=== PATIENT | female | born 1930 | race Caucasian/White ===

== ENCOUNTER 2016-10-07 12:04 | Inpatient (IN) | payer MEDICARE, OTHER ==
[~2016-10-07] VITALS: Ht 157.5 cm; Wt 55.8 kg
[~2016-10-07 12:04] MED LIST: ALEN70TA47 PO; AMLO5TAB2 PO; ATEN-155; ATEN100T88 PO; C250T PO; CALC-80 PO; CEFZIL PO; CHOL2000 PO; CYCL5TAB PO; FOLI1TAB24 PO; FOLIC ACID PO; FURO20TA4 PO; GABA-488 PO; GLUC-99 PO; HCT25T; HYDR-3816 PO; HYDR1TAB71 PO; MAGN400T39 PO; MAGNESIUM PO; METO50TA7; NABU750T PO; NAPR-243 PO; OXYC-12 PO; POTA99TA7 PO; PROP1TAB77 PO; ROPI1TAB2 PO; VICODIN 10/325 PO; VITAMIN C PO
--- OUTSIDE RECORDS SUMMARY | 2016-10-07 12:09 | XMS REPORT | Continuity of Care Document ---
Author Author [facility] Organization [facility] Address Unknown Phone Unavailable Care Team Providers Care Professional Development Manager Name Role Phone MEENU LATIF DO PCP Insurance Providers Payer Name Policy Number Subscriber Name Relationship [employer] [id number] Anibal Russo 18 Self / Same As Patient Enter Insurance Name [id number] Anibal Russo 18 Self / Same As Patient Advance Directives Directive Response Recorded Date/Time Advance Directives Yes 04/11/16 9:03am Health Care Power of [employer] No 04/11/16 9:03am Organ Donor Yes 04/11/16 9:03am Resuscitation Status Full Code 04/11/16 9:03am Problems Active Problems Medical Problem Onset Date Status Neck pain Unknown Acute Neck sprain Unknown Acute Medications Current Home Medications Medication Dose Units Route Directions Days/Qty Instructions Start Date Alendronate Sodium 70 Mg 70 Mg Oral Saturday04/20/10 Amlodipine Besylate (Norvasc 5 Mg) 5 Mg 5 Mg Oral Daily 04/20/10 Atenolol 100 Mg 0.5 Each Oral Daily 04/20/10 Nabumetone 750 Mg 500 Mg Oral Daily 04/20/10 Ropinirole Hcl 1 Mg 1 Mg Oral Daily 04/20/10 Calcium Carbonate/Vitamin D3 1 Each 1 Each Oral Daily 04/20/10 Cholecalciferol 2,000 Unit 2,000 Unit Oral Daily 04/20/10 Potassium 99 Mg 99 Mg Oral Daily 04/20/10 Furosemide (Lasix) 20 Mg 20 Mg Oral Daily 12/12/11 Glucosam/Msm/Chond/Kwu581/Hyal 1 Each 1 Each Oral Twice A Day Gabapentin 300 Mg 300 Mg Oral Three Times A Day 0 12/05/15 Magnesium Oxide 400 Mg 400 Mg Oral Daily 04/06/16 Folic Acid 1 Mg 1 Mg Oral Daily 04/06/16 Ascorbic Acid 250 Mg 250 Mg Oral Daily 04/06/16 Hydrocodone/Acetaminophen 1 Each 1 Each Oral As Needed for Pain 24 Past Home Medications Medication Directions Ordered Status Metoprolol Succinate 50 Mg Tab, 08/29/09 Discontinued Hydrochlorothiazide 25 Mg Tab, 08/29/09 Discontinued Naproxen 500 Mg Tablet, 1 Each Oral Twice A Day 08/29/09 Discontinued Hydrocodone Bit/Acetaminophen 1 Each Tablet, 1 Each Oral 4-6 Hrs as needed Discontinued [Magnesium] , 400 Tab Oral Daily 04/20/10 Discontinued [Folic Acid] , 1 Mg Oral Daily 04/20/10 Discontinued [Vitamin C] , 250 Tab Oral Daily 04/20/10 Discontinued Propoxyphene Hcl/Acetaminophen 1 Tab Tablet, 1 Each Oral Q 4 - 6 Hrs Prn 27/05 Discontinued [Cefzil] , 500 Mg Oral Twice A Day 12/29/11 Discontinued Oxycodone Hcl/Acetaminophen 1 Each Tablet, 1 - 2 Each Oral Every 4HRS Discontinued [Vicodin 10/325] , 1 - 2 Tab Oral Every 4HRS 12/29/11 Discontinued Cyclobenzaprine Hcl 5 Mg Tablet, 5 Mg Oral Every 8HRS for Muscle Cramps 05/23 Discontinued Hydrocodone/Acetaminophen 1 Each Tablet, 1 Each Oral Q4-6HRS for Pain Discontinued Social History Social History Problem Response Recorded Date/Time Alcohol Use Denies Use 05/23/2015 9:10pm Recreational Drug Use No 05/23/2015 9:10pm Recent Foreign Travel No 04/11/2016 9:01am Recent Infectious Disease Exposure No 04/11/2016 9:01am Sexually Transmitted Disease No 04/11/2016 9:03am Smoking Status Never a Smoker 04/11/2016 9:01am Sexually Transmitted Disease No 04/11/2016 9:03am Hx Sexually Transmitted Disorders No 01/05/2012 5:27pm Query Response Start Date Stop Date Smoking Status Never a Smoker Hospital Discharge Instructions No hospital discharge instructions. Plan of Care Discharge Date 04/11/16 2:15pm Instructions/Education Provided ANESTHESIA INSTRUCTIONS POSTOP DR. LOPEZ-KNEE ARTHOSCOPY Prescriptions See Medication Section Functional Status No functional status results. Allergies, Adverse Reactions, Alerts No known allergies. Immunizations No immunization records. Vital Signs Acute Vital Signs Vital Response Date/Time Temperature (Fahrenheit) 96.7 degrees F (97.6 - 99.5) 04/11/2016 2:15pm Temperature (Calculated Celsius) 35.16824 degrees C (36.4 - 37.5) 04/11/2016 12:55pm Temperature Source Temporal 04/11/2016 2:15pm Pulse Rate (adult) 58 bpm (60 - 90) 04/11/2016 2:15pm Respiratory Rate 16 bpm (12 - 24) 04/11/2016 2:15pm O2 Sat by Pulse Oximetry 99 % (88 - 100) 04/11/2016 2:15pm Blood Pressure 158/83 mm Hg 04/11/2016 2:15pm Blood Pressure Mean 118 mm Hg 04/11/2016 9:03am Pain Numeric Pain Scale 6 04/11/2016 2:15pm Pain Intensity 6 04/11/2016 12:55pm Height (Feet) 5 feet 04/11/2016 9:03am Height (Inches) 2.00 inches 04/11/2016 9:03am Height (Calculated Centimeters) 157.707197 cm 04/11/2016 9:03am Weight (Pounds) 128 pounds 04/11/2016 9:03am Weight (Ounces) 0.0 oz 04/11/2016 9:03am Weight (Calculated Grams) 55868.824 gm 04/11/2016 9:03am Weight (Calculated Kilograms) 58.145641 kilograms 04/11/2016 9:03am Calculated BMI 21.30 04/11/2016 9:03am Results Pending Laboratory Results Test Name Collection Date/Time Pending Microbiology Results Procedure Source Collection Date/Time Procedures Procedure Status Date Provider(s) Arthroscopic partial medial meniscectomy Completed 04/11/16 BALTA LOPEZ MD Tracing only of electrocardiogram Completed 04/06/[address] PROJECT MANAGER Encounters Encounter Location Arrival/Admit Date Discharge/Depart Date Attending Provider Departed [facility] 04/11/16 8:39am 2:15pm BALTA LOPEZ MD Departed Clinic [facility] 04/06/16 1:32pm 04/06/16 2: 15pm BALTA LOPEZ MD
[2016-10-07] MEDS ORDERED: fentaNYL INJECTION 100 MCG/2 ML AMP IVP ONE (12:15)
[2016-10-07] MEDS ORDERED: ACETAMINOPHEN 325 MG TABLET/CAPLET (TYLENOL) PO ONE (12:15)
[2016-10-07 12:24] LABS: BASOPHILS % (AUTO) 0 % (0-10); EOSINOPHILS # (AUTO) 0.1 10^3/uL (0.0-0.3); EOSINOPHILS % (AUTO) 0 % (0-10); LYMPHOCYTES # (AUTO) 1.9 X 10^3 (1.0-4.0); LYMPHOCYTES % (AUTO) 13 % (12-44); MEAN CORPUSCULAR HEMOGLOBIN 31 PG (25-34); MEAN CORPUSCULAR HGB CONC 33 G/DL (32-36); MEAN CORPUSCULAR VOLUME 96 FL (80-99); MEAN PLATELET VOLUME 10.2 FL (7.4-10.4); MONOCYTES % (AUTO) 7 % (0-12); NEUTROPHILS # (AUTO) 11.6 X 10^3 (1.8-7.8); NEUTROPHILS % (AUTO) 80 % (42-75); PLATELET COUNT 155 10^3/uL (130-400); RED BLOOD COUNT 4.12 10^6/uL (4.35-5.85); WHITE BLOOD COUNT 14.5 10^3/uL (4.3-11.0)
[2016-10-07 12:25] LABS: BILIRUBIN,URINE NEGATIVE (NEGATIVE); KETONES,URINE 2+ (NEGATIVE); LEUKOCYTE ESTERASE ,URINE NEGATIVE (NEGATIVE); NITRITE,URINE NEGATIVE (NEGATIVE); PH,URINE 7 (5-9); PROTEIN,URINE NEGATIVE (NEGATIVE); UROBILINOGEN,URINE NORMAL (NORMAL)
[2016-10-07 12:33] LABS: INR 1.2 (0.8-1.4); PROTHROMBIN TIME PATIENT 14.7 SEC (12.2-14.7)
[2016-10-07 12:35] LABS: BAND NEUTROPHILS 1 %; LYMPHOCYTES % (MANUAL) 7 %; NEUTROPHILS % (MANUAL) 77 %
[2016-10-07 12:44] LABS: ALBUMIN 3.4 G/DL (3.2-4.5); BILIRUBIN,TOTAL 1.1 MG/DL (0.1-1.0); CALCIUM 8.5 MG/DL (8.5-10.1); CREATININE SERUM 0.96 MG/DL (0.60-1.30); POTASSIUM 4.3 MMOL/L (3.6-5.0); TOTAL PROTEIN 6.6 G/DL (6.4-8.2); URIC ACID 5.9 MG/DL (2.6-7.2); hs C REACTIVE PROTEIN 3.45 MG/DL (0.00-0.50)
[2016-10-07 12:47] LABS: ERYTHROCYTE SEDIMENTATION RATE 17 MM/HR (0-30)
--- NOTE | 2016-10-07 13:24 | Diagnostic Imaging Report ---
INDICATION: Fall. Wrist pain. COMPARISON: None. FINDINGS: Three views of the right wrist are obtained. There is mild generalized osteopenia. No acute fracture is demonstrated. There are fairly severe degenerative changes of the scaphotrapezial joint and at the base of the thumb. Calcifications in the arterial structures are noted. There are degenerative changes of the third MCP joint. IMPRESSION: Degenerative changes at the base of the thumb and at the lateral wrist. No acute osseous abnormality is suspected. Dictated by: Dictated on workstation # [id number]
--- NOTE | 2016-10-07 13:26 | Diagnostic Imaging Report ---
INDICATION: Fall. Fever. COMPARISON: 11/30/2015 FINDINGS: Upright portable view of the chest is obtained. Heart size is enlarged. There is mild central venous congestion and there are diffuse interstitial changes with some patchy alveolar airspace disease in the lung bases. The overall appearance may be secondary to mild failure/edema. There is no pneumothorax or pleural fluid suspected. There is levoscoliosis of the thoracolumbar spine. IMPRESSION: Increasing heart size with new pulmonary vascular congestion and interstitial changes concerning for mild congestive failure. Dictated by: Dictated on workstation # [id number]
--- NOTE | 2016-10-07 13:35 | ED General ---
General Chief Complaint: Upper Extremity Stated Complaint: R ARM PAIN/SWELLING Nursing Triage Note: PT TO [facility] WITH CC OF RT WRIST PAIN, PT HAD A FALL THIS A.M. BUT HAD THE PAIN AND SWELLING IN WRIST SINCE LAST SATURDAY. PT ALSO HAS A FEVER, 102.3 AT TRIAGE. Nursing Sepsis Screen: No Definite Risk Source of Information: Patient, EMS, Family Exam Limitations: No Limitations History of Present Illness Time Seen by Provider: 12:05 Initial Comments This 86-year-old woman presents to the emergency room with complaints of right wrist pain and swelling. She arrives via EMS. She was seen at [facility] yesterday and lab work was performed. She was felt to have arthritis. Today she fell at home but denies any injury. She denied any loss of consciousness, head pain, or neck pain. She is febrile on presentation. She denies any symptoms of infectious illness such as cough, dysuria, vomiting, or diarrhea. Allergies and Home Medications Allergies Coded Allergies: No Known Drug Allergies (Unverified , 04/11/16) Home Medications Alendronate Sodium 70 Mg Tablet 70 MG PO SATURDAY (Reported) Amlodipine Besylate 5 Mg Tablet 5 MG PO DAILY (Reported) Ascorbic Acid 250 Mg Tab 250 MG PO DAILY (Reported) Atenolol 100 Mg Tablet 0.5 EACH PO DAILY (Reported) Calcium Carbonate/Vitamin D3 1 Each Tablet 1 EACH PO DAILY (Reported) Cholecalciferol 2,000 Unit Capsule 2,000 UNIT PO DAILY (Reported) Folic Acid 1 Mg Tablet 1 MG PO DAILY (Reported) Furosemide 20 Mg Tablet 20 MG PO DAILY (Reported) Gabapentin 300 Mg Capsule #0 300 MG PO TID Prescribed by: AVERY PATIÑO on 12/05/15 1414 Glucosam/Msm/Chond/Uey898/Hyal 1 Each Tablet 1 EACH PO BID (Reported) Hydrocodone/Acetaminophen 1 Each Tablet #24 1 EACH PO PRN Prescribed by: KATYA EDMONDSON on 04/11/16 1215 Magnesium Oxide 400 Mg Tablet 400 MG PO DAILY (Reported) Nabumetone 750 Mg Tablet 500 MG PO DAILY (Reported) Potassium 99 Mg Tablet 99 MG PO DAILY (Reported) Ropinirole Hcl 1 Mg Tablet 1 MG PO DAILY (Reported) Constitutional: see HPI EENTM: no symptoms reported Respiratory: no symptoms reported Cardiovascular: no symptoms reported Gastrointestinal: no symptoms reported Genitourinary: no symptoms reported Musculoskeletal: see HPI Skin: no symptoms reported Psychiatric/Neurological: No Symptoms Reported Hematologic/Lymphatic: No Symptoms Reported Past Lbtsvgg-Txserz-Cwoier Hx Patient Social History Alcohol Use: Denies Use Recreational Drug Use: No Smoking Status: Never a Smoker Recent Foreign Travel: No Contact w/Someone Who Travel: No Recent Infectious Disease Expo: Yes Recent Hopitalizations: No Immunizations Up To Date Date of Pneumonia Vaccine: Aug 12, 2015 Date of Influenza Vaccine: Oct 01, 2016 Seasonal Allergies Seasonal Allergies: No Surgeries HX Surgeries: Yes (left TKR, hernia repair x3, right hip replaced, bunionectomy , ) Surgeries: Appendectomy, Orthopedic Respiratory Hx Respiratory Disorders: Yes (pneumonia in november 2015) Respiratory Disorders: Pneumonia Cardiovascular Hx Cardiac Disorders: Yes Cardiac Disorders: Hypertension Neurological Hx Neurological Disorders: No Reproductive System Hx Reproductive Disorders: No Sexually Transmitted Disease: No Genitourinary Hx Genitourinary Disorders: Yes Gastrointestinal Hx Gastrointestinal Disorders: No Musculoskeletal Hx Musculoskeletal Disorders: Yes Musculoskeletal Disorders: Arthritis, Scoliosis, Chronic Back Pain Endocrine Hx Endocrine Disorders: No HEENT HX ENT Disorders: Yes (cataracts removed, partial plate) Cancer Hx Cancer: No Psychosocial Hx Psychiatric Problems: Yes Behavioral Health Disorders: Anxiety Integumentary HX Skin/Integumentary Disorder: No Blood Transfusions Hx Blood Disorders: No Physical Exam Vital Signs Vital Sign - Last 12Hours 10/07/16 10/07/16 12:15 12:21 Temp 102.5 Pulse 88 Resp 18 B/P 138/73 Pulse Ox 93 O2 Delivery Nasal Cannula O2 Flow Rate 2 Capillary Refill : Less Than 3 Seconds General Appearance: WD/WN Mild Distress HEENT: PERRL/EOMI Normal ENT Inspection Neck: Normal Inspection Respiratory: Lungs Clear Normal Breath Sounds No Accessory Muscle Use No Respiratory Distress Cardiovascular: Regular Rate, Rhythm No Edema No Murmur Gastrointestinal: Normal Bowel Sounds Non Tender Soft Extremity: No Pedal Edema Other (right wrist is mildly swollen and tender to the touch. There is pain with range of motion. 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 After Tylenol and pain control, mentation improved greatly.) Skin: Normal Color Warm/Dry Progress/Results/Core Measures Results/Orders Lab Results Laboratory Tests Test 10/07/16 12:10 10/07/16 12:30 10/07/16 13:00 Range/Units Activated Partial Thromboplast Time 35 24-35 SEC Alanine Aminotransferase (ALT/SGPT) 13 0-55 U/L Albumin 3.4 3.2-4.5 G/DL Alkaline Phosphatase 42 40-136 U/L Anion Gap 10 5-14 MMOL/L Aspartate Amino Transf (AST/SGOT) 20 5-34 U/L BUN/Creatinine Ratio 25 Band Neutrophils 1 % Basophils # (Auto) 0.0 0.0-0.1 10^3/uL Basophils (%) (Auto) 0 0-10 % Blood Morphology Comment NORMAL Blood Urea Nitrogen 24 H 7-18 MG/DL C-Reactive Protein High Sensitivity 3.45 H 0.00-0.50 MG/DL Calcium Level 8.5 8.5-10.1 MG/DL Carbon Dioxide Level 26 21-32 MMOL/L Chloride Level 104 98-107 MMOL/L Creatinine 0.96 0.60-1.30 MG/DL Eosinophils # (Auto) 0.1 0.0-0.3 10^3/uL Eosinophils (%) (Auto) 0 0-10 % Erythrocyte Sedimentation Rate 17 0-30 MM/HR Estimat Glomerular Filtration Rate 55 Glucose Level 89 70-105 MG/DL Hematocrit 39 35-52 % Hemoglobin 12.9 11.5-16.0 G/DL INR Comment 1.2 0.8-1.4 Lymphocytes # (Auto) 1.9 1.0-4.0 X 10^3 Lymphocytes % (Manual) 7 % Lymphocytes (%) (Auto) 13 12-44 % Mean Corpuscular Hemoglobin 31 25-34 PG Mean Corpuscular Hemoglobin Concent 33 32-36 G/DL Mean Corpuscular Volume 96 80-99 FL Mean Platelet Volume 10.2 7.4-10.4 FL Monocytes # (Auto) 1.0 0.0-1.0 X 10^3 Monocytes % (Manual) 15 % Monocytes (%) (Auto) 7 0-12 % Neutrophils # (Auto) 11.6 H 1.8-7.8 X 10^3 Neutrophils % (Manual) 77 % Neutrophils (%) (Auto) 80 H 42-75 % Platelet Count 155 130-400 10^3/uL Polychromasia Potassium Level 4.3 3.6-5.0 MMOL/L Prothrombin Time 14.7 12.2-14.7 SEC Red Blood Count 4.12 L 4.35-5.85 10^6/uL Red Cell Distribution Width 14.0 10.0-14.5 % Sodium Level 140 135-145 MMOL/L Total Bilirubin 1.1 H 0.1-1.0 MG/DL Total Protein 6.6 6.4-8.2 G/DL Toxic Granulation 1+ Uric Acid 5.9 2.6-7.2 MG/DL Urine Bacteria TRACE /HPF Urine Bilirubin NEGATIVE NEGATIVE Urine Casts NONE /LPF Urine Clarity CLEAR Urine Color YELLOW Urine Crystals NONE /LPF Urine Culture Indicated NO Urine Glucose (UA) NEGATIVE NEGATIVE Urine Ketones 2+ H NEGATIVE Urine Leukocyte Esterase NEGATIVE NEGATIVE Urine Mucus NEGATIVE /LPF Urine Nitrite NEGATIVE NEGATIVE Urine Protein NEGATIVE NEGATIVE Urine RBC 2-5 H /HPF Urine RBC (Auto) 1+ H NEGATIVE Urine Specific [place] 1.010 L 1.016-1.022 Urine Urobilinogen NORMAL NORMAL MG/DL Urine WBC NONE /HPF Urine pH 7 5-9 White Blood Count 14.5 H 4.3-11.0 10^3/uL Lactic Acid Level 0.8 0.5-2.0 MMOL/L B-Type Natriuretic Peptide 772.3 H <100.0 PG/ML Micro Results Microbiology 10/07/16 Influenza Types A,B Antigen (SARINA) - Final, Complete My Orders Orders-KENNETH GREGORY MD Cbc With Automated Diff (10/07/16 12:12) Comprehensive Metabolic Panel (10/07/16 12:12) Lactic Acid Analyzer (10/07/16 12:12) Blood Culture (10/07/16 12:12) Sputum Culture (10/07/16 12:12) Ua Culture If Indicated (10/07/16 12:12) Protime With Inr (10/07/16 12:12) Partial Thromboplastin Time (10/07/16 12:12) Chest 1 View, Ap/Pa Only (10/07/16 12:12) O2 (10/07/16 12:12) Saline Lock/Iv-Start (10/07/16 12:12) Saline Lock/Iv-Start (10/07/16 12:12) Vital Signs Adult Sepsis Patie Q1HR (10/07/16 12:12) Remove Rings In Anticipation O (10/07/16 12:12) Wrist, Right, 3 Views Or More (10/07/16 12:12) Hs C Reactive Protein (10/07/16 12:12) Erythrocyte Sedimentation Rate (10/07/16 12:12) Uric Acid (10/07/16 12:12) Fentanyl Injection (Sublimaze Injection (10/07/16 12:15) Acetaminophen Tablet/Caplet (Tylenol T (10/07/16 12:15) Manual Differential (10/07/16 12:10) Influenza A And B Antigens (10/07/16 13:02) BNP (10/07/16 13:35) Clindamycin 900 Mg/50 Ml Ivpb (Cleocin P (10/07/16 13:45) Knee, Right, 3 Views (10/07/16 14:36) Medications Given in ED Current Medications Medications Dose Ordered Sig/Bailey Route Start Time Stop Time Status Last Admin Dose Admin Acetaminophen 650 mg 650 mg ONCE ONCE PO 10/07/16 12:15 10/07/16 12:16 DC 10/07/16 12:35 650 MG Clindamycin Phosphate/Dextrose 50 ml @ 100 mls/hr ONCE ONCE IV 10/07/16 13:45 10/07/16 14:15 DC 10/07/16 13:52 100 MLS/HR Fentanyl Citrate 50 mcg ONCE ONCE IVP 10/07/16 12:15 10/07/16 12:16 DC 10/07/16 12:35 50 MCG Vital Signs/I&O Vital Sign - Last 12Hours 10/07/16 10/07/16 10/07/16 12:15 12:21 13:41 Temp 102.5 100.2 Pulse 88 73 Resp 18 20 B/P 138/73 120/53 Pulse Ox 93 93 97 O2 Delivery Nasal Cannula Nasal Cannula Nasal Cannula O2 Flow Rate 2 2 2 Blood Pressure Mean: 94 Progress Note #1: Progress Note Sepsis was suspected and septic workup was performed. Chest x-ray showed evidence of congestion and a BNP was added to her orders. BNP was elevated. Clindamycin was given for suspected cellulitis or septic arthritis of the right thumb. Blood cultures and lactic acid were collected. Pain is treated with fentanyl. Progress Note #2: Time: 14:30 Progress Note Patient later complained of pain in the right knee and x-rays were ordered. Diagnostic Imaging Diagonstic Imaging: Xray Plain Films/CT/US/NM/MRI: other (right wrist) Comments Right wrist x-ray viewed by me and report reviewed. See report below: NAME: ANIBAL RUSSO [facility] REC#: [id number] PT STATUS: REG ER : 1930 PHYSICIAN: KENNETH GREGORY MD ADMIT DATE: 10/07/16/ER Draft Date of Exam:10/07/16 WRIST, RIGHT, 3 VIEWS OR MORE INDICATION: Fall. Wrist pain. COMPARISON: None. FINDINGS: Three views of the right wrist are obtained. There is mild generalized osteopenia. No acute fracture is demonstrated. There are fairly severe degenerative changes of the scaphotrapezial joint and at the base of the thumb. Calcifications in the arterial structures are noted. There are degenerative changes of the third MCP joint. IMPRESSION: Degenerative changes at the base of the thumb and at the lateral wrist. No acute osseous abnormality is suspected. Dictated on workstation # [id number] Dict: 10/07/16 1318 Trans: 10/07/[address] [facility] [id number] Interpreted by: ROMELIA SANZ DO Diagonstic Imaging: Xray Plain Films/CT/US/NM/MRI: chest Comments Chest x-ray viewed by me. Report reviewed. See report below: NAME: ANIBAL RUSSO [facility] REC#: [id number] PT STATUS: REG ER : 1930 PHYSICIAN: KENNETH GREGORY MD ADMIT DATE: 10/07/16/ER Draft Date of Exam:10/07/16 CHEST 1 VIEW, AP/PA ONLY INDICATION: Fall. Fever. COMPARISON: 11/30/2015 FINDINGS: Upright portable view of the chest is obtained. Heart size is enlarged. There is mild central venous congestion and there are diffuse interstitial changes with some patchy alveolar airspace disease in the lung bases. The overall appearance may be secondary to mild failure/edema. There is no pneumothorax or pleural fluid suspected. There is levoscoliosis of the thoracolumbar spine. IMPRESSION: Increasing heart size with new pulmonary vascular congestion and interstitial changes concerning for mild congestive failure. Dictated on workstation # [id number] Dict: 10/07/16 1319 Trans: 10/07/16 1325 [facility] [id number] Interpreted by: ROMELIA SANZ DO Diagonstic Imaging: Xray Plain Films/CT/US/NM/MRI: knee Comments Knee x-ray viewed by me and report reviewed. See report below: NAME: ANIBAL RUSSO [facility] REC#: [id number] PT STATUS: ADM IN : 1930 PHYSICIAN: KENNETH GREGORY MD ADMIT DATE: 10/07/16 Draft Date of Exam:10/07/16 KNEE, RIGHT, 3 VIEWS INDICATION: Right knee pain. Recent fall. COMPARISON: None. FINDINGS: Three views of the right knee are obtained. No acute fracture, malalignment or osseous destructive process is seen. There is moderate narrowing of the patellofemoral joint space. The medial and lateral compartment joint spaces appear fairly preserved. There is tricompartmental marginal spurring. Vascular calcifications are noted. There is no evidence of joint effusion. 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 No acute fracture is suspected. Atherosclerosis. Dictated on workstation # [id number] Dict: 10/07/16 1455 Trans: 10/07/16 1511 [facility] [id number] Interpreted by: ROMELIA SANZ DO Departure Communication Time/Spoke to Admitting Phy: 14:20 Communication Case reviewed with Dr. Cade who would like to patient admitted for suspected septic arthritis of the right thumb, sepsis, and elevated BNP. She request consultation with cardiology and orthopedics. Impression Impression: Primary Impression: Septic arthritis of hand, right Qualified Code: M00.9 - Pyogenic arthritis, unspecified Additional Impressions: Sepsis Qualified Code: A41.9 - Sepsis, unspecified organism Elevated brain natriuretic peptide (BNP) level Disposition: ADMITTED INPATIENT Condition: Stable Decision to Admit Reason: Admit from ER (General) Decision to Admit/Date: Oct 07, 2016 Time/Decision to Admit Time: 14:20 Departure-Patient Inst. Referrals: MEENU LATIF DO (PCP/Family) Primary Care Physician KENNETH GREGORY MD Oct 07, 2016 13:35
[2016-10-07 13:41] VITALS: BP 120/53
[2016-10-07] MEDS ORDERED: CLINDAMYCIN 900 MG/50 ML IVPB 50 ML IV ONE (13:45)
--- NOTE | 2016-10-07 15:12 | Diagnostic Imaging Report ---
INDICATION: Right knee pain. Recent fall. COMPARISON: None. FINDINGS: Three views of the right knee are obtained. No acute fracture, malalignment or osseous destructive process is seen. There is moderate narrowing of the patellofemoral joint space. The medial and lateral compartment joint spaces appear fairly preserved. There is tricompartmental marginal spurring. Vascular calcifications are noted. There is no evidence of joint effusion. 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 No acute fracture is suspected. Atherosclerosis. Dictated by: Dictated on workstation # [id number]
[2016-10-07] MEDS ORDERED: ACETAMINOPHEN 500 MG TAB (TYLENOL) PO PRN (15:45)
[2016-10-07] MEDS ORDERED: LIDOCAINE 1% INJ 20 ML (XYLOCAINE) VIAL ONE (15:50)
[2016-10-07] MEDS ORDERED: VANCOMYCIN 1 GM/NS 250 ML IVPB IV NR ×2 (15:51)
[2016-10-07] MEDS ORDERED: methylPREDNISolone 80 MG/ML (DEPO MEDROL) VIAL IM NR (15:57)
[2016-10-07] MEDS ORDERED: PIPERACILLIN/TAZOBACTAM 4.5 GM/NS 100 ML IV NR ×2 (16:00)
[2016-10-07] MEDS ORDERED: fentaNYL INJECTION 100 MCG/2 ML AMP IVP PRN (16:00)
[2016-10-07 16:52] VITALS: BP 115/58
--- NOTE | 2016-10-07 16:52 | Consultation ---
History of Present Illness History of Present Illness Patient Consulted On(lucius/time) 10/07/16 16:47 Date of Admission 10/07/2016 Reason for Visit: SEPTIC ARTHRITIS RIGHT THUMB History of Present Illness THE PATIENT REPORTS THAT SHE BEGAN TO HAVE RIGHT THUMB AND WRIST PAIN MID DAY SATURDAY, 3 DAYS AGO. BY TODAY SHE HAD PAIN UP TO HER ELBOW, HAD FEVERISH FEELINGS, AND HAD MENTAL STATUS CHANGES, AND DAUGHTER VERIFIED. NO TRAUMA, NO RECENT SURGERY. Allergies and Home Medications Allergies Coded Allergies: No Known Drug Allergies (Unverified , 10/07/16) Home Medications Alendronate Sodium 70 Mg Tablet 70 MG PO SATURDAY (Reported) Amlodipine Besylate 5 Mg Tablet 5 MG PO DAILY (Reported) Ascorbic Acid 250 Mg Tab 250 MG PO DAILY (Reported) Atenolol 100 Mg Tablet 0.5 EACH PO DAILY (Reported) Calcium Carbonate/Vitamin D3 1 Each Tablet 1 EACH PO DAILY (Reported) Cholecalciferol 2,000 Unit Capsule 2,000 UNIT PO DAILY (Reported) Folic Acid 1 Mg Tablet 1 MG PO DAILY (Reported) Furosemide 20 Mg Tablet 20 MG PO DAILY (Reported) Gabapentin 300 Mg Capsule #0 300 MG PO TID Prescribed by: AVERY PATIÑO on 12/05/15 1414 Glucosam/Msm/Chond/Okk577/Hyal 1 Each Tablet 1 EACH PO BID (Reported) Hydrocodone/Acetaminophen 1 Each Tablet #24 1 EACH PO PRN Prescribed by: KATYA EDMONDSON on 04/11/16 1215 Magnesium Oxide 400 Mg Tablet 400 MG PO DAILY (Reported) Nabumetone 750 Mg Tablet 500 MG PO DAILY (Reported) Potassium 99 Mg Tablet 99 MG PO DAILY (Reported) Ropinirole Hcl 1 Mg Tablet 1 MG PO DAILY (Reported) Past Rqhkcxr-Vsksav-Gnfxqm Hx Patient Social History Alcohol Use: Denies Use Recreational Drug Use: No Smoking Status: Never a Smoker Recent Foreign Travel: No Contact w/Someone Who Travel: No Recent Infectious Disease Expo: Yes Recent Hopitalizations: No Immunizations Up To Date Date of Pneumonia Vaccine: Aug 12, 2015 Date of Influenza Vaccine: Oct 01, 2016 Seasonal Allergies Seasonal Allergies: No Surgeries HX Surgeries: Yes (left TKR, hernia repair x3, right hip replaced, bunionectomy , ) Surgeries: Appendectomy, Orthopedic Respiratory Hx Respiratory Disorders: Yes (pneumonia in november 2015) Respiratory Disorders: Pneumonia Cardiovascular Hx Cardiac Disorders: Yes Cardiac Disorders: Hypertension Neurological Hx Neurological Disorders: No Reproductive System Hx Reproductive Disorders: No Sexually Transmitted Disease: No Genitourinary Hx Genitourinary Disorders: Yes Gastrointestinal Hx Gastrointestinal Disorders: No Musculoskeletal Hx Musculoskeletal Disorders: Yes Musculoskeletal Disorders: Arthritis, Scoliosis, Chronic Back Pain Endocrine Hx Endocrine Disorders: No HEENT HX ENT Disorders: Yes (cataracts removed, partial plate) Cancer Hx Cancer: No Psychosocial Hx Psychiatric Problems: Yes Behavioral Health Disorders: Anxiety Integumentary HX Skin/Integumentary Disorder: No Blood Transfusions Hx Blood Disorders: No Physical Exam-General Problems Physical Exam Vital Signs Vital Sign - Last 12Hours 10/07/16 10/07/16 12:15 12:21 Temp 102.5 Pulse 88 Resp 18 B/P 138/73 Pulse Ox 93 O2 Delivery Nasal Cannula O2 Flow Rate 2 Capillary Refill : Less Than 3 Seconds Extremities: inflammation swelling other Assessment/Plan Assessment/Plan Admission Diagnosis/Plan 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 PLAN: MRI AT 0830 WITHOUT CONTRAST TO EVALUATE THAT SPACE, IF FULL OF FLUID, CONSIDER ASPIRATION OR SURGICAL DEBRIDEMENT. I WILL PRESENT TO DR. JAZMINE DOSS FOR FURTHER WORK UP AND MANAGEMENT TOMORROW. JUAN SIMON MD Oct 07, 2016 16:52
[2016-10-07] MEDS ORDERED: FENT1PAT57 TD (19:33)
[2016-10-07 20:00] VITALS: BP 121/61
[2016-10-07] MEDS: HYDROcodone/APAP 5 MG/325 MG (LORTAB) TAB PO PRN (21:16)
[2016-10-07] MEDS: PIPERACILLIN/TAZOBACTAM 4.5 GM/NS 100 ML IVPB IV SCH ×2 (21:16)
[2016-10-08] VITALS: BP 117/50
[2016-10-08 04:00] VITALS: BP 129/58
[2016-10-08 04:52] LABS: BASOPHILS % (AUTO) 0 % (0-10); EOSINOPHILS % (AUTO) 0 % (0-10); LYMPHOCYTES # (AUTO) 1.1 X 10^3 (1.0-4.0); LYMPHOCYTES % (AUTO) 14 % (12-44); MEAN CORPUSCULAR HEMOGLOBIN 31 PG (25-34); MEAN CORPUSCULAR HGB CONC 33 G/DL (32-36); MEAN CORPUSCULAR VOLUME 94 FL (80-99); MEAN PLATELET VOLUME 10.6 FL (7.4-10.4); MONOCYTES # (AUTO) 0.1 X 10^3 (0.0-1.0); MONOCYTES % (AUTO) 1 % (0-12); NEUTROPHILS # (AUTO) 7.2 X 10^3 (1.8-7.8); NEUTROPHILS % (AUTO) 85 % (42-75); PLATELET COUNT 158 10^3/uL (130-400); RED BLOOD COUNT 4.47 10^6/uL (4.35-5.85); WHITE BLOOD COUNT 8.4 10^3/uL (4.3-11.0)
[2016-10-08 05:15] LABS: CALCIUM 8.8 MG/DL (8.5-10.1); CREATININE SERUM 1.04 MG/DL (0.60-1.30); POTASSIUM 4.2 MMOL/L (3.6-5.0)
[2016-10-08] MEDS: PIPERACILLIN/TAZOBACTAM 4.5 GM/NS 100 ML IVPB IV SCH ×6 (05:16→22:02)
[2016-10-08] MEDS: HYDROcodone/APAP 5 MG/325 MG (LORTAB) TAB PO PRN ×2 (05:22→22:02)
[2016-10-08 08:00] VITALS: BP 141/65
--- NOTE | 2016-10-08 08:00 | Progress Note (SOAP) ---
Subjective Subjective/Events-last exam Melania is a very pleasant 86 y/o female with right wrist pain, prior erythema and swelling that has improved on broad coverage antibiotic therapy. She is being worked up for deep seeded infection and right wrist MRI has been ordered but not yet obtained. Her pain is currently 7/10 and she experiences numbness to all of her fingers. Review of Systems General: No Chills, No Night Sweats HEENT: No Head Aches Pulmonary: No Dyspnea, No Cough Cardiovascular: No: Chest Pain, Palpitations Gastrointestinal: No: Nausea, Vomiting Musculoskeletal: : arm pain Neurological: : Numbness: WeaknessNo: Change in speech, Confusion, Incoordination Objective Exam Vital Signs Date Time Temp Pulse Resp B/P Pulse Ox O2 Delivery O2 Flow Rate FiO2 10/08/16 04:00 96.8 64 18 129/58 96 Room Air 10/08/16 00:00 98.0 65 18 117/50 94 Room Air 10/07/16 20:00 98.4 66 18 121/61 92 Room Air 0.00 10/07/16 16:52 98.7 63 18 115/58 97 Nasal Cannula 2.00 10/07/16 16:30 Nasal Cannula 2.00 10/07/16 15:35 98.6 64 18 98 2 10/07/16 13:41 100.2 73 20 120/53 97 Nasal Cannula 2 10/07/16 12:21 102.5 88 18 138/73 93 Nasal Cannula 2 10/07/16 12:15 93 Nasal Cannula 2 I & O 10/08/16 06:59 Intake Total 1540 ml Output Total 251 ml Balance 1289 ml Capillary Refill : Less Than 3 Seconds General Appearance: No Apparent Distress Neck: Normal Inspection Respiratory: No Accessory Muscle Use No Respiratory Distress Cardiovascular: Normal Peripheral Pulses Peripheral Pulses: 2+ Radial Pulses (R), 2+ Radial Pulses (L) Extremity: Normal Capillary Refill Other (right wrist slightly swollen with mild tenderness, no erythema or induration noted) Neurologic/Psychiatric: Alert Oriented x3 No Motor/Sensory Deficits Results Lab Laboratory Tests 10/07/16 12:10: Activated Partial Thromboplast Time 35, Alanine Aminotransferase (ALT/SGPT) 13, Albumin 3.4, Alkaline Phosphatase 42, Anion Gap 10, Aspartate Amino Transf (AST/ SGOT) 20, BUN/Creatinine Ratio 25, Band Neutrophils 1, Basophils # (Auto) 0.0, Basophils (%) (Auto) 0, Blood Morphology Comment NORMAL, Blood Urea Nitrogen 24H , C-Reactive Protein High Sensitivity 3.45H, Calcium Level 8.5, Carbon Dioxide Level 26, Chloride Level 104, Creatinine 0.96, Eosinophils # (Auto) 0.1, Eosinophils (%) (Auto) 0, Erythrocyte Sedimentation Rate 17, Estimat Glomerular Filtration Rate 55, Glucose Level 89, Hematocrit 39, Hemoglobin 12.9, INR Comment 1.2, Lymphocytes # (Auto) 1.9, Lymphocytes % (Manual) 7, Lymphocytes (% ) (Auto) 13, Mean Corpuscular Hemoglobin 31, Mean Corpuscular Hemoglobin Concent 33, Mean Corpuscular Volume 96, Mean Platelet Volume 10.2, Monocytes # ( Auto) 1.0, Monocytes % (Manual) 15, Monocytes (%) (Auto) 7, Neutrophils # (Auto ) 11.6H, Neutrophils % (Manual) 77, Neutrophils (%) (Auto) 80H, Platelet Count 155, Polychromasia , Potassium Level 4.3, Prothrombin Time 14.7, Red Blood Count 4.12L, Red Cell Distribution Width 14.0, Sodium Level 140, Total Bilirubin 1.1H, Total Protein 6.6, Toxic Granulation 1+, Uric Acid 5.9, Urine Bacteria TRACE, Urine Bilirubin NEGATIVE, Urine Casts NONE, Urine Clarity CLEAR , Urine Color YELLOW, Urine Crystals NONE, Urine Culture Indicated NO, Urine Glucose (UA) NEGATIVE, Urine Ketones 2+H, Urine Leukocyte Esterase NEGATIVE, Urine Mucus NEGATIVE, Urine Nitrite NEGATIVE, Urine Protein NEGATIVE, Urine RBC 2-5H, Urine RBC (Auto) 1+H, Urine Specific [place] 1.010L, Urine Urobilinogen NORMAL, Urine WBC NONE, Urine pH 7, White Blood Count 14.5H 10/07/16 12:30: Lactic Acid Level 0.8 10/07/16 13:00: B-Type Natriuretic Peptide 772.3H 10/08/16 04:22: Anion Gap 12, BUN/Creatinine Ratio 24, Basophils # (Auto) 0.0, Basophils (%) ( Auto) 0, Blood Urea Nitrogen 25H, Calcium Level 8.8, Carbon Dioxide Level 22, Chloride Level 104, Creatinine 1.04, Eosinophils # (Auto) 0.0, Eosinophils (%) ( Auto) 0, Estimat Glomerular Filtration Rate 50, Glucose Level 157H, Hematocrit 42, Hemoglobin 13.8, Lymphocytes # (Auto) 1.1, Lymphocytes (%) (Auto) 14, Mean Corpuscular Hemoglobin 31, Mean Corpuscular Hemoglobin Concent 33, Mean Corpuscular Volume 94, Mean Platelet Volume 10.6H, Monocytes # (Auto) 0.1, Monocytes (%) (Auto) 1, Neutrophils # (Auto) 7.2, Neutrophils (%) (Auto) 85H, Platelet Count 158, Potassium Level 4.2, Red Blood Count 4.47, Red Cell Distribution Width 14.0, Sodium Level 138, White Blood Count 8.4, B-Type Natriuretic Peptide 668.3H Microbiology 10/07/16 Influenza Types A,B Antigen (SARINA) - Final, Complete 10/07/16 Gram Stain - Final, Resulted 10/07/16 Wound Culture - Preliminary, Resulted No growth Assessment/Plan Assessment/Plan Assess & Plan/Chief Complaint Plan: wrist pain, possible deep infection proceed with right wrist MRI possible aspirate after MRI vs open I&D Diagnosis/Problems: Clinical Quality Measures DVT/VTE Risk/Contraindication: Risk Factor Score Per Nursin RFS Level Per Nursing on Admit: 3=High KENNETH SEYMOUR Oct 08, 2016 08:00
--- NOTE | 2016-10-08 09:54 | History & Physical-Hospitalist ---
HPI History of Present Illness: HPI/Chief Complaint CC: Right wrist pain and edema and erythema HPI: This is an 86-year-old white female clinic patient of Dr. Luong that presents with right wrist hand pain with fever and swelling. She was worked up appropriately and covered with broad-spectrum antibiotics to cover for any septic arthritis versus cellulitis and orthopedic surgery was consulted. I have also consulting cardiology due to the elevated BNP but she has no history of cardiac issues per her daughter. She is being seen by orthopedic surgery and they ordered MRI that was just completed and will follow up regarding the need for IND open or monitored and managed in a different direction. Source: patient, RN/MD Exam Limitations: no limitations Date Seen 10/08/16 Attending Physician Rock Pelaez DO PCP Rock Pelaez DO Referring Physician Date of Admission Oct 07, 2016 at 14:50 Home Medications & Allergies Home Medications Reviewed patient Home Medication Reconciliation Form Allergies Coded Allergies: No Known Drug Allergies (Unverified , 10/07/16) Past Oocbntf-Hfwzdz-Fvlgsb Hx Patient Social History Marrital Status: Employed/Student: retired Alcohol Use: Denies Use Recreational Drug Use: No Smoking Status: Never a Smoker Physical Abuse Screen: No Sexual Abuse: No Recent Foreign Travel: No Contact w/other who traveled: No Recent Hopitalizations: No Recent Infectious Disease Expo: Yes Immunizations Up To Date Date of Pneumonia Vaccine: Aug 12, 2015 Date of Influenza Vaccine: Oct 01, 2016 Seasonal Allergies Seasonal Allergies: No Surgeries HX Surgeries: Yes (left TKR, hernia repair x3, right hip replaced, bunionectomy , ) Surgeries: Appendectomy, Orthopedic Respiratory Hx Respiratory Disorders: Yes (pneumonia in november 2015) Respiratory Disorders: Pneumonia Cardiovascular Hx Cardiovascular Disorders: Yes Cardiac Disorders: Hypertension Neurological Hx Neurological Disorders: No Reproductive System Hx Reproductive Disorders: No Sexually Transmitted Disease: No HIV/AIDS: No Female Reproductive Disorders: Denies Genitourinary Hx Genitourinary Disorders: Yes Gastrointestinal Hx Gastrointestinal Disorders: No Musculoskeletal Hx Musculoskeletal Disorders: Yes Musculoskeletal Disorders: Arthritis, Scoliosis, Chronic Back Pain Endocrine Hx Endocrine Disorders: No HEENT HX ENT Disorders: Yes (cataracts removed, partial plate) HEENT Disorders: Cataract Loss of Vision: Denies Hearing Impairment: Denies Cancer Hx Cancer: No Psychosocial Hx Psychiatric Problems: Yes Behavioral Health Disorders: Anxiety Integumentary HX Skin/Integumentary Disorder: No Blood Transfusions Hx Blood Disorders: No Review of Systems Constitutional: see HPI dizziness fever malaise weakness EENTM: no symptoms reported Respiratory: no symptoms reported Cardiovascular: no symptoms reported Gastrointestinal: no symptoms reported Genitourinary: no symptoms reported Musculoskeletal: joint pain (right hand) Skin: see HPI Psychiatric/Neurological: No Symptoms Reported All Other Systems Reviewed Negative Unless Noted: Yes Physical Exam Physical Exam Vital Signs Vital Sign - Last 12Hours 10/07/16 10/07/16 12:15 12:21 Temp 102.5 Pulse 88 Resp 18 B/P 138/73 Pulse Ox 93 O2 Delivery Nasal Cannula O2 Flow Rate 2 Capillary Refill : Less Than 3 Seconds General Appearance: No Apparent Distress WD/WN Chronically ill Eyes: Bilateral Eye Normal Inspection, Bilateral Eye PERRL HEENT: PERRL/EOMI Normal ENT Inspection Pharynx Normal Neck: Full Range of Motion Normal Inspection Non Tender Supple Carotid Bruit Respiratory: Chest Non Tender Lungs Clear Normal Breath Sounds No Accessory Muscle Use No Respiratory Distress Cardiovascular: Regular Rate, Rhythm No Edema No Gallop No JVD No Murmur Normal Peripheral Pulses Gastrointestinal: Normal Bowel Sounds No Organomegaly No Pulsatile Mass Non Tender Soft Back: Normal Inspection No CVA Tenderness No Vertebral Tenderness Extremity: Normal Capillary Refill Normal Inspection Normal Range of Motion ( except right wrist and right hand) Non Tender (except right wrist and right hand ) No Calf Tenderness No Pedal Edema Swelling (right wrist) Neurologic/Psychiatric: Alert Oriented x3 No Motor/Sensory Deficits Normal Mood/Affect Skin: Normal Color Warm/Dry Lymphatic: No Adenopathy Results Results/Procedures Lab Laboratory Tests 10/07/16 12:10 10/08/16 04:22 Assessment/Plan Admission Diagnosis Assessment: Right wrist and hand swelling with erythema and fever suspicion for septic arthritis versus cellulitis orthopedic surgery consulted MRI completed and pending results Elevated BNP consulting cardiology since asymptomatic Hypertension Osteoporosis Chronic pain Leukocytosis Assessment and Plan Plan: Antibiotic coverage until MRI and orthopedic surgery evaluation has been completed Reconcile all home medications Pain control Monitor closely Clinical Quality Measures DVT/VTE Risk/Contraindication: Risk Factor Score Per Nursin RFS Level Per Nursing on Admit: 3=High BRENDAN PERRY DO Oct 08, 2016 09:54
[2016-10-08] MEDS ORDERED: fentaNYL PATCH 25 MCG (DURAGESIC) TD SCH (10:00)
[2016-10-08] MEDS ORDERED: ALPRAZolam 0.25 MG (XANAX) TAB PO PRN (10:00)
[2016-10-08] MEDS ORDERED: POLYETHYLENE GLYCOL 17 GM (MIRALAX) PACK PO PRN (10:00)
[2016-10-08] MEDS ORDERED: NON-FORMULARY MEDICATION 1 EA EA (Alendronate Sodium 70 MG) PO SCH (10:00)
[2016-10-08] MEDS ORDERED: ACETAMINOPHEN 500 MG TAB (TYLENOL) PO PRN (10:00)
[2016-10-08] MEDS ORDERED: ONDANSETRON 4 MG/2 ML (SDV) Z0FRAN IVP PRN (10:00)
[2016-10-08] MEDS ORDERED: HYDROcodone/APAP 7.5 MG/325 MG (LORTAB, LORCET PLUS) TABLET PO SCH (10:00)
[2016-10-08] MEDS ORDERED: CATHETER FLUSH 10 ML SYR IV PRN (11:15)
--- NOTE | 2016-10-08 11:56 | Diagnostic Imaging Report ---
PROCEDURE: MRI right joint upper extremity without contrast. TECHNIQUE: Multiplanar, multisequence non contrast-enhanced MRI of the right upper extremity was accomplished. INDICATION: Right wrist pain since 10/05/2016. Patient fell down on 10/07/2016. FINDINGS: Soft tissues in the wrist demonstrate circumferential edema worse along the dorsal aspect involving most prominently the subcutaneous tissues but also involving the deeper soft tissues with associated minimal amount of fluid along multiple flexor and extensor tendons without primary tendon abnormality. This is probably related to extension of inflammatory or infectious process. Correlate for signs of cellulitis. There is no localized fluid collection to suggest an abscess. There is no significant marrow edema other than mild edema along intercarpal bones and cystic changes most prominent in the lunate and in the trapezoid and minimally involving the trapezium and capitate. These are associated with adjacent mild joint fluid, and there is significant cartilage thinning with [id number] appearance along the trapezium first metacarpal joint at the base of the thumb with some irregularity of the articular surface that appears to be chronic. There is no significant bone marrow abnormality in a pattern to suggest osteomyelitis or fracture. No evidence of avascular necrosis. There is mild increased signal in the triangular fibrocartilage suggestive of sprain or sequela of old injury without full-thickness tear. IMPRESSION: Findings suggestive of cellulitis around the wrist with reactive tenosynovitis in the flexor and extensors tendons. Prominent degenerative changes. No evidence of osteomyelitis or septic arthritis. Dictated by: Dictated on workstation # [id number]
[2016-10-08 12:00] VITALS: BP 124/57
[2016-10-08] MEDS: GABAPENTIN 300 MG (NEURONTIN) CAP PO SCH ×2 (12:00→22:02)
[2016-10-08] MEDS ORDERED: FENT1PAT8 TD (13:18)
[2016-10-08] MEDS ORDERED: GABA600T2 PO (13:18)
[2016-10-08] MEDS ORDERED: ROPI1TAB2 PO (13:18)
[2016-10-08] MEDS ORDERED: FURO20TA4 PO (13:18)
[2016-10-08] MEDS ORDERED: ATEN50TA PO (13:18)
[2016-10-08] MEDS ORDERED: POTA20TA15 PO (13:18)
[2016-10-08] MEDS ORDERED: ALEN70TA47 PO (13:18)
[2016-10-08] MEDS ORDERED: AMLO5TAB2 PO (13:18)
[2016-10-08] MEDS ORDERED: LATA2.5D5 OD (13:18)
[2016-10-08] MEDS ORDERED: HYDR-3820 PO (13:18)
--- NOTE | 2016-10-08 14:27 | Consultation-Cardiology ---
HPI-Cardiology Cardiology Consultation: Date of Consultation 10/08/16 Date of Admission Attending Physician Rock Pelaez DO Admitting Physician Rock Pelaez DO Consulting Physician Damien NOVAK MD HPI: Chief Complaint: Possible septic arthritis, lower extremity swelling This is a pleasant 86-year-old lady with no significant past cardiac history. She presents with possible septic arthritis of the right upper extremity. She also has history of hypertension and lower extremity swelling. She denies having any significant shortness of breath or chest pain. Review of Systems-Cardiology Review of Systems Constitutional: No As described under HPI, No no symptoms reported, No chills, No fever, No lightheadedness, No malaise, No tiredness, No weight loss, No weight gain, No other Eyes: No As described under HPI, No no symptoms reported, No blindness, No blurred vision, No contact lenses, No drainage, No decreased acuity, No foreign body sensation, No glasses, No inflammation, No pain, No photophobia, No previous injury, No shadows, No tunnel vision, No other, No vision change Ears/Nose/Throat: No As described under HPI, No no symptoms reported, No chronic hearing loss, No epistaxis, No ear discharge, No ear pain, No loose teeth, No mouth pain, No mouth swelling, No nasal drainage, No nose pain, No recent hearing loss, No throat pain, No throat swelling, No ulcerations, No other Respiratory: No no symptoms reported, No As described under HPI, No cough, No orthopnea, No shortness of breath, No SOB with excertion, No SOB at rest, No stridor, No wheezing, No other Cardiovascular: No no symptoms reported, As described under HPINo chest pain, No edema, No irregular heart rate, No lightheadedness, No palpitations, No syncope, No other Gastrointestinal: No no symptoms reported, No As described under HPI, No abdomen distended, No abdominal pain, No blood streaked bowels, No constipation , No diarrhea, No difficulty swallowing, No nausea, No poor appetite, No poor fluid intake, No rectal bleeding, No vomiting, No other, No nausea/vomiting/ diarrhea, No stool coloration changes Genitourinary: No no symptoms reported, No As described under HPI, No burning, No dysuria, No discharge, No frequency, No flank pain, No hematuria, No incontinence, No pain, No urgency, No other, No urine frequency changes, No urine coloration changes Musculoskeletal: As describe under HPI Skin: No no symptoms reported, No As described under HPI, No change in color, No change in hair/nails, No dryness, No lesions, No lumps, No rash, No other, No skin related problems, No ulcerations, No rash on exposed areas, No ulcerations on exposed areas Psychiatric/Neurological: No As described under HPI, No anxiety, No depression , No emotional problems, No focal weakness, No headache, No no symptoms reported , No numbness, No other, No pre-existing deficit, No seizure, No syncope, No tingling, No tremors, No weakness Hematologic: No no symptoms reported, No As described under HPI, No anemia, No blood clots, No easy bleeding, No easy bruising, No swollen glands, No other, No bleeding abnormalities All Other Systems Reviewed Negative Unless Noted: Yes [id number] Hx Patient Social History Marrital Status: Employed/Student: retired Alcohol Use: Denies Use Recreational Drug Use: No Smoking Status: Never a Smoker Recent Foreign Travel: No Recent Infectious Disease Expo: Yes Physical Abuse Screen: No Sexual Abuse: No Immunizations Up To Date Date of Pneumonia Vaccine: Aug 12, 2015 Date of Influenza Vaccine: Oct 01, 2016 Past Medical History PMH As described under Assessment. Allergies and Home Medications Allergies Coded Allergies: No Known Drug Allergies (Unverified , 10/07/16) Home Medications Alendronate Sodium 70 Mg Tablet 70 MG PO [place] (Reported) Amlodipine Besylate 5 Mg Tablet 5 MG PO DAILY (Reported) Ascorbic Acid 250 Mg Tab 250 MG PO DAILY (Reported) Atenolol 50 Mg Tablet 50 MG PO DAILY (Reported) Calcium Carbonate/Vitamin D3 1 Each Tablet 1 EACH PO DAILY (Reported) Cholecalciferol 2,000 Unit Capsule 2,000 UNIT PO DAILY (Reported) Fentanyl 1 Each Patch.td72 25 MCG TD EVERY 72 HOURS (Reported) Folic Acid 1 Mg Tablet 1 MG PO DAILY (Reported) Furosemide 20 Mg Tablet 20 MG PO DAILY (Reported) Gabapentin 600 Mg Tablet 600 MG PO TID (Reported) Glucosam/Msm/Chond/Tae729/Hyal 1 Each Tablet 1 EACH PO BID (Reported) Hydrocodone/Acetaminophen 1 Each Tablet 1-2 TAB PO DAILY PRN PRN PAIN (Reported ) Latanoprost 2.5 Ml Drops 1 DROP OD HS (Reported) Magnesium Oxide 400 Mg Tablet 400 MG PO DAILY (Reported) Potassium Chloride 20 Meq Tab.er.prt 20 MEQ PO DAILY (Reported) Ropinirole HCl 1 Mg Tablet 1 MG PO HS (Reported) Physical Exam-Cardiology Physical Exam Vital Signs/I&O Vital Sign - Last 12Hours 10/08/16 10/08/16 10/08/16 04:00 08:00 12:00 Temp 96.8 98.0 98.1 Pulse 64 68 75 Resp 18 16 16 B/P 129/58 141/65 124/57 Pulse Ox 96 94 95 O2 Delivery Room Air Room Air Room Air Intake and Output 10/08/16 00:00 Intake Total 1040 ml Output Total 1 ml Balance 1039 ml Capillary Refill : Less Than 3 Seconds Constitutional: No appears stated age, No AAO x 3, No apparent distress, No PERRL, No well-developed, No well-nourished, No other HEENT: No PERRL, No normal ENT inspection, No TMs normal, No pharynx normal, No scleral icterus (R), No scleral icterus (L), No pale conjunctivae (R), No pale conjunctivae (L), No photophobia, No TM abnormal (R), No TM abnormal (L), No pharyngeal erythema, No tonsillar exudate, No other, No discharge, No EOMI, No hearing is well preserved, No hard of hearing, No oral hygience is good, No ulceration, No xanthelasmas are seen Neck: No non-tender, No full range of motion, No supple, No normal inspection, No carotid bruit, No limited range of motion, No lymphadenopathy (R), No lymphadenopathy (L), No tender lateral, No tender midline, No thyromegaly, No other, No carotid pulses are 2 + bilaterally, No with good upstrokes Respiratory: No accessory muscle use, No respiratory distress, No chest tender , No chest expansion is symmetric, No chest is bilaterally symmetric, No lungs clear to percussion, No lungs clear to auscultation, No crackles, No rhonchi, No rales, No stridor, No wheezing, No pleural rub, No other Cardiovascular: No regular rate-rhythm, No irregularly irregular, No extra beats, No parasternal heave is noted, No JVD, No edema, No bradycardia, No tachycardia, No point of maximal impulse, No cardiac thrills are palpable, No S1 and S2, No gallop/S3, No gallop/S4, No diastolic murmur, No systolic murmur, No friction rub, No click, No other Gastrointestinal: No tender, No soft, No round, No distended, No pulsatile mass , No organomegaly, No guarding, No rebound, No tenderness, No hernia, No mass, No audible bowel sounds, No abnormal bowel sounds, No abdominal bruits, No spleenomegaly, No other Rectal: deferred Extremities: No normal range of motion, non-tenderNo normal inspection, No pedal edema, No calf tenderness, No normal capillary refill, No pelvis stable, No calf tenderness, No inflammation, No pedal edema, No slow capillary refill, No swelling, No other, No abrasion, No clubbing, No cyanosis, No ecchymosis, No laceration, No no lower extremity edema bilateral, No significant edema, No tenderness, No wound Neurologic/Psychiatric: No director of enrollment II-XII nml as tested, No no motor/sensory deficits, No alert, No normal mood/affect, No oriented x 3, No abnormal cerebellar tests, No abnormal director of enrollment II-XII, No abnormal gait, No aphasia, No EOM palsy, No facial droop, No motor weakness, No sensory deficit, No depressed affect, No disoriented x 3, No other, No grossly intact, No power is 5/5 both on sides Skin: No normal color, No warm/dry, No cyanosis, No cool, No diaphoresis, No damp, No ecchymosis, No jaundice, No mottled, No pallor, No rash, No tattoos/ piercings, No ulcerations, No rash on exposed areas, No ulcerations on exposed areas, No other Data Review Labs Laboratory Tests 10/08/16 04:22: Anion Gap 12, B-Type Natriuretic Peptide 668.3H, BUN/Creatinine Ratio 24, Basophils # (Auto) 0.0, Basophils (%) (Auto) 0, Blood Urea Nitrogen 25H, Calcium Level 8.8, Carbon Dioxide Level 22, Chloride Level 104, Creatinine 1.04 , Eosinophils # (Auto) 0.0, Eosinophils (%) (Auto) 0, Estimat Glomerular Filtration Rate 50, Glucose Level 157H, Hematocrit 42, Hemoglobin 13.8, Lymphocytes # (Auto) 1.1, Lymphocytes (%) (Auto) 14, Mean Corpuscular Hemoglobin 31, Mean Corpuscular Hemoglobin Concent 33, Mean Corpuscular Volume 94, Mean Platelet Volume 10.6H, Monocytes # (Auto) 0.1, Monocytes (%) (Auto) 1, Neutrophils # (Auto) 7.2, Neutrophils (%) (Auto) 85H, Platelet Count 158, Potassium Level 4.2, Red Blood Count 4.47, Red Cell Distribution Width 14.0, Sodium Level 138, White Blood Count 8.4 10/08/16 08:38: C-Reactive Protein High Sensitivity 9.53H, Erythrocyte Sedimentation Rate 23 Microbiology 10/07/16 Influenza Types A,B Antigen (SARINA) - Final, Complete 10/07/16 Gram Stain - Final, Resulted 10/07/16 Wound Culture - Preliminary, Resulted No growth A/P-Cardiology Assessment/Admission Diagnosis Possible septic arthritis, Lower extremity swelling, Elevated BNP Plan Unlikely congestive heart failure on examination. She also does not have significant shortness of breath. She does have elevated BNP and lower extremity swelling by history. I will recommend an echocardiogram. No diuretics at this point in time. Thank you for your consultation. Please call me if you have any questions. Fiorella Novak MD, FACP, FACC, FSCAI, FHRS, CCDS Interventional Cardiology Cardiac Electrophysiology Vascular Medicine and Endovascular Interventions Clinical Quality Measures DVT/VTE Risk/Contraindication: Risk Factor Score Per Nursin RFS Level Per Nursing on Admit: 3=High Damien NOVAK MD Oct 08, 2016 14:27
[2016-10-08] MEDS: CATHETER FLUSH 10 ML SYR IV SCH ×2 (14:42→22:02)
[2016-10-08] MEDS ORDERED: FOLI0.8C PO (15:02)
[2016-10-08] MEDS ORDERED: VANCOMYCIN 750 MG/NS 250 ML IVPB IV SCH ×2 (16:00)
[2016-10-08 16:11] VITALS: BP 155/69
[2016-10-08 19:58] VITALS: BP 163/72
[2016-10-08] MEDS ORDERED: rOPINIRole 1 MG (REQUIP) TABLET PO SCH (21:00)
[2016-10-08] MEDS ORDERED: [UNRECOGNIZED DRUG - OTHER] PO SCH (21:00)
[2016-10-09] VITALS: BP 149/67
[2016-10-09] MEDS: PIPERACILLIN/TAZOBACTAM 4.5 GM/NS 100 ML IVPB IV SCH ×2 (05:22)
[2016-10-09] MEDS: CATHETER FLUSH 10 ML SYR IV SCH (05:22)
[2016-10-09 06:45] LABS: BASOPHILS % (AUTO) 0 % (0-10); EOSINOPHILS % (AUTO) 0 % (0-10); LYMPHOCYTES # (AUTO) 1.7 X 10^3 (1.0-4.0); LYMPHOCYTES % (AUTO) 13 % (12-44); MEAN CORPUSCULAR HEMOGLOBIN 31 PG (25-34); MEAN CORPUSCULAR HGB CONC 33 G/DL (32-36); MEAN CORPUSCULAR VOLUME 94 FL (80-99); MEAN PLATELET VOLUME 10.1 FL (7.4-10.4); MONOCYTES # (AUTO) 0.9 X 10^3 (0.0-1.0); MONOCYTES % (AUTO) 7 % (0-12); NEUTROPHILS # (AUTO) 10.4 X 10^3 (1.8-7.8); NEUTROPHILS % (AUTO) 80 % (42-75); PLATELET COUNT 176 10^3/uL (130-400); RED BLOOD COUNT 4.03 10^6/uL (4.35-5.85); RED CELL DISTRIBUTION WIDTH 14.2 % (10.0-14.5)
[2016-10-09 07:12] LABS: ALBUMIN 3.4 G/DL (3.2-4.5); BILIRUBIN,TOTAL 0.9 MG/DL (0.1-1.0); CALCIUM 8.6 MG/DL (8.5-10.1); CREATININE SERUM 0.95 MG/DL (0.60-1.30); POTASSIUM 4.5 MMOL/L (3.6-5.0); TOTAL PROTEIN 6.6 G/DL (6.4-8.2)
[2016-10-09 08:00] VITALS: BP 152/70
[2016-10-09] MEDS ORDERED: NON-FORMULARY MEDICATION 1 EA EA (Potassium 99 MG) PO SCH (09:00)
[2016-10-09] MEDS ORDERED: ATENOLOL 50 MG (TENORMIN) TAB PO SCH (09:00)
[2016-10-09] MEDS ORDERED: ASCORBIC ACID (VIT C) 500 MG TABLET PO SCH (09:00)
[2016-10-09] MEDS ORDERED: CALCIUM CARB + VIT D 600 MG (CALCARB + D) TAB PO SCH (09:00)
[2016-10-09] MEDS ORDERED: VITAMIN D3 1,000 UNITS (CHOLECALCIFEROL) TABLET PO SCH (09:00)
[2016-10-09] MEDS ORDERED: MAGNESIUM OXIDE (MAG-OX)400 MG TAB PO SCH (09:00)
[2016-10-09] MEDS ORDERED: IBUPROFEN 600 MG (MOTRIN) TAB PO SCH (09:00)
[2016-10-09] MEDS ORDERED: amLODIPine 5 MG (NORVASC) TAB PO SCH (09:00)
[2016-10-09] MEDS ORDERED: SULF1TAB35 PO (09:36)
--- NOTE | 2016-10-09 09:41 | Discharge Summary-Hospitalist ---
Diagnosis/Chief Complaint Date of Admission Oct 07, 2016 at 14:50 Date of Discharge Discharge Date: Admission Diagnosis Assessment: Right wrist and hand swelling with erythema and fever suspicion for septic arthritis versus cellulitis orthopedic surgery consulted MRI completed and pending results Elevated BNP consulting cardiology since asymptomatic Hypertension Osteoporosis Chronic pain Leukocytosis Discharge Diagnosis Assessment: Right wrist and hand swelling with erythema and fever suspicion for septic arthritis versus cellulitis orthopedic surgery consulted MRI completed and pending results but final dx is cellulitis severe with joint edema Elevated BNP consulting cardiology since asymptomatic ECHO performed but pending results at time of DC Hypertension Osteoporosis Chronic pain Leukocytosis Plan: Antibiotic coverage until MRI and orthopedic surgery evaluation has been completed Reconcile all home medications Pain control Monitor closely Reason Hospital Visit/Course CC: Right wrist pain and edema and erythema HPI: This is an 86-year-old white female clinic patient of Dr. Pelaez'jacek that presents with right wrist hand pain with fever and swelling. She was worked up appropriately and covered with broad-spectrum antibiotics to cover for any septic arthritis versus cellulitis and orthopedic surgery was consulted. I have also consulting cardiology due to the elevated BNP but she has no history of cardiac issues per her daughter. She is being seen by orthopedic surgery and they ordered MRI that was just completed and will follow up regarding the need for IND open or monitored and managed in a different direction. No from 10/09/16: Patient much improved right wrist swelling and hand swelling now resolved but does report some stiffness as a result No fever No other issues noted Echocardiogram performed and cardiology consultation is appreciated Will have follow-up with Dr. Chatterjee orthopedic surgery in 1 week to assure there is no evidence of any septic arthritis but will treat as deep-seated cellulitis with joint edema No fever, vital signs stable, pleasant, oriented 3, daughters the bedside Regular rate and rhythm, clear to all sedation bilaterally Right wrist and hand much improved edema with almost complete resolution of restricted range of motion Hospital course: Patient had an uneventful hospital course she was placed on broad-spectrum antibiotics and consulted orthopedics for presumed septic arthritis of the right hand and wrist. She was assessed had MRI performed and the final diagnosis was deep-seated cellulitis of the right hand and wrist with joint edema with no evidence of septic arthritis but will complete aggressive antibiotic regimen upon discharge with close follow-up with orthopedics to assure that there was no entry site of the joint space it was not identified in the MRI. Cardiology was consulted echocardiogram was performed due to elevated BNP without symptoms so at the time of discharge the echocardiogram was pending. Overall patient had enough pain medication which she has fentanyl patch and hydrocodone but she does not need refills until 2 weeks from now which she will follow up with primary care provider for those needs. Discharge Summary Discharge Physical Examination Allergies: Coded Allergies: No Known Drug Allergies (Unverified , 10/07/16) Vitals & I&Os Vital Signs Date Time Temp Pulse Resp B/P Pulse Ox O2 Delivery O2 Flow Rate FiO2 10/09/16 08:00 97.8 68 17 152/70 96 Room Air 10/07/16 20:00 0.00 Hospital Course Labs (last 24 hrs) Laboratory Tests 10/09/16 06:35: Alanine Aminotransferase (ALT/SGPT) 13, Albumin 3.4, Alkaline Phosphatase 36L, Anion Gap 10, Aspartate Amino Transf (AST/SGOT) 17, BUN/Creatinine Ratio 21, Basophils # (Auto) 0.0, Basophils (%) (Auto) 0, Blood Urea Nitrogen 20H, Calcium Level 8.6, Carbon Dioxide Level 22, Chloride Level 107, Creatinine 0.95 , Eosinophils # (Auto) 0.0, Eosinophils (%) (Auto) 0, Estimat Glomerular Filtration Rate 56, Glucose Level 118H, Hematocrit 38, Hemoglobin 12.6, Lymphocytes # (Auto) 1.7, Lymphocytes (%) (Auto) 13, Mean Corpuscular Hemoglobin 31, Mean Corpuscular Hemoglobin Concent 33, Mean Corpuscular Volume 94, Mean Platelet Volume 10.1, Monocytes # (Auto) 0.9, Monocytes (%) (Auto) 7, Neutrophils # (Auto) 10.4H, Neutrophils (%) (Auto) 80H, Platelet Count 176, Potassium Level 4.5, Red Blood Count 4.03L, Red Cell Distribution Width 14.2, Sodium Level 139, Total Bilirubin 0.9, Total Protein 6.6, White Blood Count 13.0H Microbiology 10/07/16 Blood Culture - Preliminary, Resulted No growth 10/07/16 Influenza Types A,B Antigen (SARINA) - Final, Complete 10/07/16 Gram Stain - Final, Resulted 10/07/16 Wound Culture - Preliminary, Resulted No growth Pending Labs Laboratory Tests 10/09/16 06:35: Alanine Aminotransferase (ALT/SGPT) 13, Albumin 3.4, Alkaline Phosphatase 36, Anion Gap 10, Aspartate Amino Transf (AST/SGOT) 17, BUN/Creatinine Ratio 21, Basophils # (Auto) 0.0, Basophils (%) (Auto) 0, Blood Urea Nitrogen 20, Calcium Level 8.6, Carbon Dioxide Level 22, Chloride Level 107, Creatinine 0.95, Eosinophils # (Auto) 0.0, Eosinophils (%) (Auto) 0, Estimat Glomerular Filtration Rate 56, Glucose Level 118, Hematocrit 38, Hemoglobin 12.6, Lymphocytes # (Auto) 1.7, Lymphocytes (%) (Auto) 13, Mean Corpuscular Hemoglobin 31, Mean Corpuscular Hemoglobin Concent 33, Mean Corpuscular Volume 94, Mean Platelet Volume 10.1, Monocytes # (Auto) 0.9, Monocytes (%) (Auto) 7, Neutrophils # (Auto) 10.4, Neutrophils (%) (Auto) 80, Platelet Count 176, Potassium Level 4.5, Red Blood Count 4.03, Red Cell Distribution Width 14.2, Sodium Level 139, Total Bilirubin 0.9, Total Protein 6.6, White Blood Count 13.0 Discharge Home Medications: Active Scripts Active Bactrim Ds Tablet (Sulfamethoxazole/Trimethoprim) 1 Each Tablet 1 Each PO BID Reported Folic Acid 0.8 Mg Capsule 0.8 Mg PO DAILY Alendronate Sodium 70 Mg Tablet 70 Mg PO HYATT Fentanyl Patch 25 MCG (Fentanyl) 1 Each Patch.td72 25 Mcg TD EVERY 72 HOURS Latanoprost 2.5 Ml Drops 1 Drop OD HS Ropinirole HCl 1 Mg Tablet 1 Mg PO HS Hydrocodon-Acetaminophn 10-325 (Hydrocodone/Acetaminophen) 1 Each Tablet 1-2 Tab PO DAILY PRN Gabapentin 600 Mg Tablet 600 Mg PO TID Atenolol 50 Mg Tablet 50 Mg PO DAILY Furosemide 20 Mg Tablet 20 Mg PO DAILY Amlodipine Besylate 5 Mg Tablet 5 Mg PO DAILY Potassium Chloride 20 Meq Tab.er.prt 20 Meq PO DAILY Vitamin C (Ascorbic Acid) 250 Mg Tab 250 Mg PO DAILY Magnesium (Magnesium Oxide) 400 Mg Tablet 400 Mg PO DAILY Eql Zbliyvcmoxa-Yygzew-Huk Tab (Glucosam/Msm/Chond/Iut815/Hyal) 1 Each Tablet 1 Tab PO BID Vitamin D (Cholecalciferol) 2,000 Unit Capsule 2,000 Unit PO DAILY Calcium 600 + D Caplet (Calcium Carbonate/Vitamin D3) 1 Each Tablet 1 Tab PO DAILY Instructions to patient/family Please see electonic discharge instructions given to patient. Clinical Quality Measures DVT/VTE Risk/Contraindication: Risk Factor Score Per Nursin RFS Level Per Nursing on Admit: 3=High Copy Copies To 1: MEENU PELAEZ DO Copies To 2: MEENU PELAEZ MINDI DO Oct 09, 2016 09:41
[2016-10-09] MEDS: GABAPENTIN 300 MG (NEURONTIN) CAP PO SCH (09:55)
--- NOTE | 2016-10-09 10:34 | Occupational Therapy Eval ---
OT Evaluation-General/PLF Medical Diagnosis Admission Date Oct 07, 2016 at 14:50 Medical Diagnosis: Cellulitis right hand Onset Date: Oct 08, 2016 Therapy Diagnosis Therapy Diagnosis: Weakness in right hand Height/Weight Height (Feet): 5 Height (Inches): 2.00 Weight (Pounds): 123 Weight (Ounces): 0.0 Precautions Precautions/Isolations: Standard Precautions Safety Interventions: None Referral Physician: Dr. Agrawal Referral Reason: Activity Tolerance, Self Care, Evaluation/Treatment, Strengthening/ROM Medical History Additional Medical History Left TKR, hernia repair x 3, right hip replaced, bunionectomy, pneumonia Current History Pt. began having swelling and pain in right hand. Reviewed History: Yes Social History Home: Single Level Current Living Status: Other Family Entry Into Home: Stairs With Railing Steps Into Home: 4 ADL-Prior Level of Function ADL PLOF Comments Pt. states that she was independent with all daily skills previous to this hospitalization. States that she was able to drive, shop, and bathe/dress independently. Pt's granddaughter and granddaughter's spouse live with her. DME/Equipment: Bath Chair, Shower DME/Equipment Comments Pt. states that she uses a cane and a 3 wheeled walker. States that she does not use the cane outside. Pt. states that she was having difficulty using the walker with grasp of right hand when her hand was more swollen and painful. Drive Self: Yes OT Current Status Subjective Pt. does not report pain at this time. States that her hand is "looking much better" than it was previously. Appearance Pt. is up sitting on side of bed, dressed when OT enters room. Agrees to work with OT. Mental Status/Objective Patient Orientation: Person, Place Current Glasses/Contacts: Yes Hand Dominance: Right Upper Extremity ROM Pt. demonstrates bilateral shoulder ROM WFL. 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 Upper Extremity Coordination Left- intact Right- impaired. Upper Extremity Sensation Pt. reports decreased sensation in thenar eminence of right hand, and dorsal aspect of right hand. Upper Extremity Strength Right hand is weak and MMT shows approximately 2/5 strength. Left hand- 3+5 due to severe arthritis. However, pt. does report that left hand strength is at baseline. Edema: Right hand of normal color and slightly swollen. Pt. reports that right hand was red, hot, and swollen yesterday. States that it is doing better today. ADL-Treatment Functional [place] Measure 0=Not Assessed/NA 4=Minimal Assistance 1=Total Assistance 5=Supervision or Setup 2=Maximal Assistance 6=Modified [place] 3=Moderate Assistance 7=Complete IndependenceIRFPAI Quality Coding Scale 6 Independent with activity with or without an assistive device 5 Patient requires set up or clean up by helper. Patient completes activity by themselves 4 Supervision or touching assist (CGA). [place] provide cues , steadying assist 3 The helper provides less than half the effort to complete the activity 2 The helper provides more than half the effort to complete the activity 1 Dependent. The helper does all the effort to complete an activity 7 Patient refused to complete or attempt activity 9 The patient did not perform the activity before the current illness or injury 88 Not attempted due to Medical conditions or safety concerns Other Treatments Pt. reports that she was able to shower yesterday with no difficulty. States that she is able to dress as well. Is able to feed herself and toilet herself. Pt. already dressed this morning. States that her granddaughter will be at home to assist her if needed. 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 Pt. is educated to make sure that someone is with her in the beginning at home when she completes tasks. Pt. verbalizes this and agrees. Pt. is given 4 hand exercises to increase right fine motor coordination and strength. Pt. is able to participate in and complete all exercises. Verbalizes understanding of how many times to complete the exercises. No retrograde massage indicated at this time due to active cellulitis. Pt. is educated on this. Educated to complete the AROM only to improve fine motor movement. Pt. is also educated that if she should continue having significant weakness in right hand after she heals at home, that it would be beneficial for her to seek outpt. therapy. Pt. verbalizes understanding of this. Pt. is issued handout of exercises and able to demonstrate them again to this therapist. Pt. states, "I hope I can leave soon." Nursing aware. Education OT Patient Education: Home exercise program, Progress toward Goal/Update tx plan, Purpose of tx/functional activities, Reviewed precautions, Rehab process Teaching Recipient: Patient Teaching Methods: Demonstration, Handout, Discussion Response to Teaching: Verbalize Understanding, Return Demonstration OT Short Term Goals Short Term Goals 1=Demonstrate adherence to instructed precautions during ADL tasks. 2=Patient will verbalize/demonstrate understanding of assistive devices/ modifications for ADL. 3=Patient will improve strength/tolerance for activity to enable patient to perform ADL's. OT Life Science Technician Goals Life Science Technician Goals Time Frame: Oct 09, 2016 Pt. able to return demonstrate 4 hand exercises to improve coordination and fine motor strength of right hand. 1=Demonstrate adherence to instructed precautions during ADL tasks. 2=Patient will verbalize/demonstrate understanding of assistive devices/ modifications for ADL. 3=Patient will improve strength/tolerance for activity to enable patient to perform ADL's. OT Education/Plan Problem List/Assessment Assessment: Impaired Coordination Discharge Recommendations Plan/Recommendations: Discharge/Goals Met Therapy D/C Recommendations: Home w/ Family Support Target Placement Pt. plans to discharge home with the support of her family. Pt. has been educated on following up with oupt occupational therapist if symptoms of weakness and decreased coordination persist. Treatment Plan/Plan of Care Treatment,Training & Education: Yes Treatment Duration: Oct 09, 2016 # of days/week 1 treatment, 1 day. Pt. to discharge possibly today. Agreement: Yes Rehab Potential: Good Time/GCodes Start Time: 10:00 Stop Time: 10:15 Total Time Billed (hr/min): 15 Billed Treatment Time 1, SUZE Davis OT Oct 09, 2016 10:34
--- NOTE | 2016-10-09 12:33 | Cardiology Progress Note ---
Cardiology SOAP Progress Note Subjective: No cardiac symptoms Objective: I&O/Vital Signs Vital Sign - Last 12Hours 10/09/16 08:00 Temp 97.8 Pulse 68 Resp 17 B/P 152/70 Pulse Ox 96 O2 Delivery Room Air Intake and Output 10/09/16 00:00 Intake Total 1490 ml Output Total 300 ml Balance 1190 ml Weight (Pounds): 123 Weight (Ounces): 0.0 Weight (Calculated Kilograms): [id number] Constitutional: No appears stated age, No AAO x 3, No apparent distress, No PERRL, No well-developed, No well-nourished, No other Respiratory: No accessory muscle use, No respiratory distress, No chest tender , No chest expansion is symmetric, No chest is bilaterally symmetric, No lungs clear to percussion, No lungs clear to auscultation, No crackles, No rhonchi, No rales, No stridor, No wheezing, No pleural rub, No other Cardiovascular: No regular rate-rhythm, No irregularly irregular, No extra beats, No parasternal heave is noted, No JVD, No edema, No bradycardia, No tachycardia, No point of maximal impulse, No cardiac thrills are palpable, No S1 and S2, No gallop/S3, No gallop/S4, No diastolic murmur, No systolic murmur, No friction rub, No click, No other Gastrointestional: No tender, No soft, No round, No distended, No pulsatile mass, No organomegaly, No guarding, No rebound, No tenderness, No hernia, No mass, No audible bowel sounds, No abnormal bowel sounds, No abdominal bruits, No spleenomegaly, No other Extremities: No normal range of motion, non-tenderNo normal inspection, No pedal edema, No calf tenderness, No normal capillary refill, No pelvis stable, No calf tenderness, No inflammation, No pedal edema, No slow capillary refill, No swelling, No other, No abrasion, No clubbing, No cyanosis, No ecchymosis, No laceration, No no lower extremity edema bilateral, No significant edema, No tenderness, No wound Neurologic/Psychiatric: 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, No no motor/sensory deficits, No alert, No normal mood/affect, No oriented x 3, No abnormal cerebellar tests, No abnormal food and beverage outlets manager II-XII, No abnormal gait, No aphasia, No EOM palsy, No facial droop, No motor weakness, No sensory deficit, No depressed affect, No disoriented x 3, No other, No grossly intact, No power is 5/5 both on sides Skin: No normal color, No warm/dry, No cyanosis, No cool, No diaphoresis, No damp, No ecchymosis, No jaundice, No mottled, No pallor, No rash, No tattoos/ piercings, No ulcerations, No rash on exposed areas, No ulcerations on exposed areas, No other Results/Procedures: Labs Laboratory Tests 10/09/16 06:35: Alanine Aminotransferase (ALT/SGPT) 13, Albumin 3.4, Alkaline Phosphatase 36L, Anion Gap 10, Aspartate Amino Transf (AST/SGOT) 17, BUN/Creatinine Ratio 21, Basophils # (Auto) 0.0, Basophils (%) (Auto) 0, Blood Urea Nitrogen 20H, Calcium Level 8.6, Carbon Dioxide Level 22, Chloride Level 107, Creatinine 0.95 , Eosinophils # (Auto) 0.0, Eosinophils (%) (Auto) 0, Estimat Glomerular Filtration Rate 56, Glucose Level 118H, Hematocrit 38, Hemoglobin 12.6, Lymphocytes # (Auto) 1.7, Lymphocytes (%) (Auto) 13, Mean Corpuscular Hemoglobin 31, Mean Corpuscular Hemoglobin Concent 33, Mean Corpuscular Volume 94, Mean Platelet Volume 10.1, Monocytes # (Auto) 0.9, Monocytes (%) (Auto) 7, Neutrophils # (Auto) 10.4H, Neutrophils (%) (Auto) 80H, Platelet Count 176, Potassium Level 4.5, Red Blood Count 4.03L, Red Cell Distribution Width 14.2, Sodium Level 139, Total Bilirubin 0.9, Total Protein 6.6, White Blood Count 13.0H 10/09/16 10:51: Glucometer 101 Microbiology 10/07/16 Blood Culture - Preliminary, Resulted No growth 10/07/16 Influenza Types A,B Antigen (SARINA) - Final, Complete 10/07/16 Gram Stain - Final, Resulted 10/07/16 Wound Culture - Preliminary, Resulted No growth A/P: Assessment/Dx: Possible septic arthritis, Lower extremity swelling, Elevated BNP Plan: Unlikely congestive heart failure on examination. She also does not have significant shortness of breath. She does have elevated BNP and lower extremity swelling by history. No diuretics at this point in time. Preliminary echocardiogram shows normal sinus rhythm with mild concentric LVH. No significant valvular heart disease. I'll be happy to see this patient as an outpatient if required. Thank you for your consultation. Please call me if you have any questions. Fiorella Novak MD, FACP, FACC, FSCAI, FHRS, CCDS Interventional Cardiology Cardiac Electrophysiology Vascular Medicine and Endovascular Interventions Damien NOVAK MD Oct 09, 2016 12:33
[2016-10-09] MEDS ORDERED: TROUGH ORDER-PHARMACY XX NR (15:00)
[2016-10-09 17:25] VITALS: BP 152/70
--- NOTE | 2016-10-12 07:15 | ECHOCARDIOGRAPHY REPORT ---
PROCEDURE PHYSICIAN: KAYLI NOVAK DATE OF PROCEDURE: 10/08/2016 TWO DIMENSIONAL ECHOCARDIOGRAM REPORT PRIMARY PHYSICIAN: OTHER PHYSICIAN: REFERRING PHYSICIAN: ORDERING PHYSICIAN: Dr. [place] Novak ATTENDING PHYSICIAN: Dr. Rock Pelaez FAMILY PHYSICIAN: READING PHYSICIAN: INDICATION FOR THE PROCEDURE: 1. Possible congestive heart failure. 2. Elevated BNP. 3. Septic arthritis. MEASUREMENTS DERIVED VALUES LV DIAMETER (LAX) NORMALS NORMALS Diastolic (3.6-5.2) Eject. Fract. (60%+/-6%) Systolic (2.3-3.9) Diastolic Vol. % Shortening (0.22-0.42) Systolic Vol. Aortic Root IVS THICKNESS Diastolic (0.6-1.1) LVPW THICKNESS Diastolic (0.6-1.1) LA DIAMETER Systolic (2.1-3.7) FINDINGS: 1. Sinus rhythm. 2. Mild left atrial enlargement is noted. Left atrial diameter is 4.2 cm. 3. Aortic root is normal. 4. LV systolic function is normal. LV EF is 60%. Mild concentric LVH is present. Diastolic intraventricular septal diameter is 1.2 cm. 5. Wall motion is normal. 6. There is no pericardial effusion. 7. Mild diastolic dysfunction is present. 8. IVC is not well visualized. VALVULAR STRUCTURE OF THE HEART: There is trace tricuspid regurgitation with RVSP of 28 mmHg. There is mild mitral regurgitation, which is posteriorly directed. Aortic valve is within normal limits with no significant stenosis or regurgitation. Pulmonic valve is not well visualized. CONCLUSION: 1. LV and RV size and function are normal. 2. EF is 60%. 3. Mild concentric LVH and mild left atrial enlargement is noted. 4. There is mild posteriorly directed mitral regurgitation present. 5. Mild diastolic dysfunction is present. Job ID: [id number] Dictated Date: 10/11/2016 22:33:21 Customer Success Advocate Date: 10/12/2016 07:11:10 / shiela
== END 2016-10-09 12:45 | disposition home or self-care (01) | DRG 603 ==
LOC: EDUNIT# 12:04 → ER 12:05 → 4TH 14:50
PROVIDERS: ADMIT Internal Medicine; ATTEND Internal Medicine
DX: L03.113 Cellulitis of right upper limb (principal); M25.431 Effusion, right wrist; M25.441 Effusion, right hand; I10 Essential (primary) hypertension; M41.9 Scoliosis, unspecified; M81.0 Age-related osteoporosis without current pathological fracture; R79.89 Other specified abnormal findings of blood chemistry; Z96.652 Presence of left artificial knee joint; Z96.641 Presence of right artificial hip joint; Z91.81 History of falling
CPT/HCPCS: 36415; 71010; 73110; 73221; 73562; 80048; 80053; 81000; 82962; 83605; 83880; 84550; 85007; 85025; 85027; 85610; 85652; 85730; 86141; 87040; 87070; 87075; 87205; 87804; 93306; 96365; 96375

== ENCOUNTER 2017-02-23 19:33 | Inpatient (IN) | payer MEDICARE, OTHER ==
[~2017-02-23] VITALS: Ht 157.5 cm; Wt 52.8 kg
[~2017-02-23 19:33] MED LIST changes: +ATEN50TA PO; +FENT1PAT57 TD; +FENT1PAT8 TD; +FOLI0.8C PO; +GABA600T2 PO; +HYDR-3820 PO; +LATA2.5D5 OD; +POTA20TA15 PO; +SULF1TAB35 PO
[2017-02-23] MEDS ORDERED: NS IV 1000 ML 1,000 ML IV ONE (19:42)
[2017-02-23] MEDS ORDERED: ACETAMINOPHEN 500 MG TAB (TYLENOL) PO ONE (19:45)
[2017-02-23 19:50] LABS: BASOPHILS % (AUTO) 0 % (0-10); EOSINOPHILS % (AUTO) 0 % (0-10); LYMPHOCYTES # (AUTO) 0.8 X 10^3 (1.0-4.0); LYMPHOCYTES % (AUTO) 5 % (12-44); MEAN CORPUSCULAR HEMOGLOBIN 30 PG (25-34); MEAN CORPUSCULAR HGB CONC 33 G/DL (32-36); MEAN CORPUSCULAR VOLUME 93 FL (80-99); MEAN PLATELET VOLUME 10.2 FL (7.4-10.4); MONOCYTES # (AUTO) 1.4 X 10^3 (0.0-1.0); MONOCYTES % (AUTO) 9 % (0-12); NEUTROPHILS # (AUTO) 13.7 X 10^3 (1.8-7.8); NEUTROPHILS % (AUTO) 86 % (42-75); PLATELET COUNT 159 10^3/uL (130-400); RED BLOOD COUNT 4.43 10^6/uL (4.35-5.85); RED CELL DISTRIBUTION WIDTH 14.9 % (10.0-14.5); WHITE BLOOD COUNT 15.9 10^3/uL (4.3-11.0)
[2017-02-23 19:58] LABS: INR 1.1 (0.8-1.4); PROTHROMBIN TIME PATIENT 14.1 SEC (12.2-14.7)
[2017-02-23 20:04] LABS: BAND NEUTROPHILS 2 %; BASOPHILS % (MANUAL) 0 %; EOSINOPHILS % (MANUAL) 0 %; LYMPHOCYTES % (MANUAL) 9 %; NEUTROPHILS % (MANUAL) 85 %
[2017-02-23 20:08] LABS: ALBUMIN 3.8 GM/DL (3.2-4.5); BILIRUBIN,TOTAL 1.3 MG/DL (0.1-1.0); CALCIUM 9.3 MG/DL (8.5-10.1); CREATININE SERUM 1.02 MG/DL (0.60-1.30); POTASSIUM 3.9 MMOL/L (3.6-5.0); TOTAL PROTEIN 7.9 GM/DL (6.4-8.2)
[2017-02-23 20:13] LABS: BILIRUBIN,URINE NEGATIVE (NEGATIVE); KETONES,URINE 2+ (NEGATIVE); LEUKOCYTE ESTERASE ,URINE NEGATIVE (NEGATIVE); NITRITE,URINE NEGATIVE (NEGATIVE); PH,URINE 8 (5-9); PROTEIN,URINE 2+ (NEGATIVE); UROBILINOGEN,URINE NORMAL (NORMAL)
[2017-02-23 20:22] LABS: SQUAMOUS EPITHELIAL CELL,UR 0-2 /HPF; WBC,URINE RARE /HPF
--- NOTE | 2017-02-23 21:21 | Diagnostic Imaging Report ---
PROCEDURE: CT head and CT cervical spine without contrast. TECHNIQUE: Multiple contiguous axial images were obtained through the brain and cervical spine without the use of intravenous contrast. Sagittal and coronal reformations through the cervical spine were then performed. INDICATION: Head injury. COMPARISON: CT cervical spine without contrast from 05/23/2015. FINDINGS: CT head: No intracranial hemorrhage, mass effect, hydrocephalus or extra-axial fluid collections. No CT evidence of acute infarction. Intracranial vascular calcifications. Moderate generalized cerebral and cerebellar parenchymal volume loss. Osseous structures are intact. The visualized paranasal sinuses and mastoids are clear. Orbits are unremarkable. CT cervical spine: There is mild anterolisthesis of C3 on C4. Alignment is otherwise unremarkable. There are diffuse advanced degenerative endplate changes. Vertebral body heights are maintained. No fractures. Posterior disc osteophyte complexes at C4-C5, C5-C6 and C6-C7 result in at least mild to moderate spinal canal narrowing, similar to the prior exam. Uncovertebral and facet arthropathy result in scattered moderate and advanced neural foraminal narrowing, also similar to the prior exam. Coarse arterial calcifications in the carotid bifurcations. Fibrosis in the lung apices. The visualized paravertebral soft tissues are otherwise unremarkable. IMPRESSION: 1. No acute intracranial or cervical spine CT findings. 2. Advanced spondylotic changes in the cervical spine, similar to the prior exam. Dictated by: Dictated on workstation # [id number]
--- NOTE | 2017-02-23 21:39 | Diagnostic Imaging Report ---
EXAM: CHEST 1 VIEW, AP/PA ONLY INDICATION: Left shoulder pain. COMPARISON: Chest radiograph 10/07/2016. FINDINGS: Stable prominence of the interstitium. Stable cardiomegaly and central pulmonary vascularity. Calcified aorta. No pleural effusion. No dense consolidation. No pneumothorax. No acute osseous findings. Advanced thoracolumbar curvature. Partially visualized postoperative changes in the upper lumbar spine. No acute osseous findings. Advanced degenerative changes in the right shoulder, moderate on the left. IMPRESSION: Stable exam. There is cardiomegaly with prominent central pulmonary arteries. Prominent interstitium throughout both lungs is at least partially chronic. There may be an overlying component of fluid overload. Dictated by: Dictated on workstation # [id number]
--- NOTE | 2017-02-23 21:46 | Diagnostic Imaging Report ---
EXAM: Shoulder, left, 3 views. INDICATION: Left shoulder pain. COMPARISON: None. FINDINGS: Advanced degenerative changes in the left glenohumeral joint. Moderate degenerative changes in the left acromioclavicular joint. No fractures. No malalignment. IMPRESSION: No acute radiographic findings in the left shoulder. Dictated by: Dictated on workstation # [id number]
--- NOTE | 2017-02-23 21:50 | Diagnostic Imaging Report ---
EXAM: KNEE, 3 VIEWS, BILATERAL INDICATION: Bilateral knee pain. COMPARISON: Right knee radiographs 10/07/2016. FINDINGS: Left total knee arthroplasty. Components appear intact and well seated. No periprosthetic fractures. There are moderate tricompartmental degenerative changes in the right knee, most marked in the patellofemoral compartment. Chondrocalcinosis in the right knee. No fractures. Coarse vascular calcifications. IMPRESSION: No acute radiographic findings in either knee. Dictated by: Dictated on workstation # [id number]
--- NOTE | 2017-02-23 21:53 | ED Fall/Injury ---
General Chief Complaint: Trauma-Non Activation Stated Complaint: FALL Nursing Triage Note: PT ARRIVED BY EMS. PT STATES SHE FELL FROM HER BED ONTO THE FLOOR TRYING TO GRAB SOMETHING FROM HER TABLE. PT STATES SHE DID HIT HER HEAD BUT NO LOC NOTED. PT COMPLAINS OF RIGHT KNEE PAIN, LEFT HIP PAIN AND HEAD PAIN. PT STATES SHE LAYED ON THE FLOOR SEVERAL HOURS BEFORE SOMEONE FOUND HER. Source: patient Exam Limitations: no limitations History of Present Illness Time seen by provider: 19:35 Initial Comments This pleasant 86-year-old woman presents to the emergency room after having a fall in her home several hours prior to her arrival. Her medical alert call button apparently did not work and she was found by family. She complains of left hip pain, right knee pain, and headache. She struck the left side of her head on the floor. She is also febrile with a temperature of 103.1. She reports having a mild cough and some diarrhea recently. She is alert and oriented. She denies loss of consciousness. She denies prodrome to her fall although she has complained of some dizziness here in the ER. She fell while trying to reach something on a table or dresser. Location Injury Occurred: HOME Occurred: this afternoon Injuries/Pain Location: head Allergies and Home Medications Allergies Coded Allergies: No Known Drug Allergies (Unverified , 10/07/16) Home Medications Alendronate Sodium 70 Mg Tablet, 70 MG PO [place], (Reported) Amlodipine Besylate 5 Mg Tablet, 5 MG PO DAILY, (Reported) Ascorbic Acid 250 Mg Tab, 250 MG PO DAILY, (Reported) Atenolol 50 Mg Tablet, 50 MG PO DAILY, (Reported) Calcium Carbonate/Vitamin D3 1 Each Tablet, 1 TAB PO DAILY, (Reported) Cholecalciferol 2,000 Unit Capsule, 2,000 UNIT PO DAILY, (Reported) Fentanyl 1 Each Patch.td72, 25 MCG TD EVERY 72 HOURS, (Reported) Folic Acid 0.8 Mg Capsule, 0.8 MG PO DAILY, (Reported) Furosemide 20 Mg Tablet, 20 MG PO DAILY, (Reported) Gabapentin 600 Mg Tablet, 600 MG PO TID, (Reported) Glucosam/Msm/Chond/Exp113/Hyal 1 Each Tablet, 1 TAB PO BID, (Reported) Hydrocodone/Acetaminophen 1 Each Tablet, 1-2 TAB PO DAILY PRN for PAIN, ( Reported) Latanoprost 2.5 Ml Drops, 1 DROP OD HS, (Reported) Magnesium Oxide 400 Mg Tablet, 400 MG PO DAILY, (Reported) Potassium Chloride 20 Meq Tab.er.prt, 20 MEQ PO DAILY, (Reported) Ropinirole HCl 1 Mg Tablet, 1 MG PO HS, (Reported) Sulfamethoxazole/Trimethoprim 1 Each Tablet, 1 EACH PO BID, #20 Prescribed by: BRENDAN PERRY on 10/09/16 0936 Constitutional: see HPI Eyes: No Symptoms Reported Ears, Nose, Mouth, Throat: no symptoms reported Respiratory: no symptoms reported Cardiovascular: no symptoms reported Gastrointestinal: no symptoms reported Genitourinary: no symptoms reported : No Musculoskeletal: see HPI Skin: no symptoms reported Psychiatric/Neurological: No Symptoms Reported Past Ffrqlad-Apgolm-Hppors Hx Patient Social History Alcohol Use: Denies Use Recreational Drug Use: No Smoking Status: Never a Smoker 2nd Hand Smoke Exposure: No Recent Foreign Travel: No Contact w/Someone Who Travel: No Recent Infectious Disease Expo: No Recent Hopitalizations: No Immunizations Up To Date Tetanus Booster (TDap): Unknown Date of Pneumonia Vaccine: Aug 12, 2015 Date of Influenza Vaccine: Oct 01, 2016 Seasonal Allergies Seasonal Allergies: No Surgeries HX Surgeries: Yes (left TKR, hernia repair x3, right hip replaced, bunionectomy , ) Surgeries: Appendectomy, Orthopedic Respiratory Hx Respiratory Disorders: Yes (pneumonia in november 2015) Respiratory Disorders: Pneumonia Cardiovascular Hx Cardiac Disorders: Yes Cardiac Disorders: Hypertension Neurological Hx Neurological Disorders: No Reproductive System Hx Reproductive Disorders: No Sexually Transmitted Disease: No HIV/AIDS: No Female Reproductive Disorders: Denies Genitourinary Hx Genitourinary Disorders: Yes Genitourinary Disorders: Benign Prostatic Hyperpl Gastrointestinal Hx Gastrointestinal Disorders: No Musculoskeletal Hx Musculoskeletal Disorders: Yes Musculoskeletal Disorders: Arthritis, Scoliosis, Chronic Back Pain Endocrine Hx Endocrine Disorders: No HEENT HX ENT Disorders: Yes (cataracts removed, partial plate) HEENT Disorders: Cataract Loss of Vision: Denies Hearing Impairment: Denies Cancer Hx Cancer: No Psychosocial Hx Psychiatric Problems: Yes Behavioral Health Disorders: Anxiety Integumentary HX Skin/Integumentary Disorder: No Blood Transfusions Hx Blood Disorders: No Physical Exam Vital Signs Vital Sign - Last 12Hours 02/23/17 19:51 O2 Flow Rate 2.00 FiO2 97 Capillary Refill : Less Than 3 Seconds General Appearance: WD/WN, no apparent distress HEENT: PERRL/EOMI, normal ENT inspection, pharynx normal, other (mild tenderness over the left parietal scalp) Neck: non-tender, full range of motion, supple, normal inspection Cardiovascular: regular rate, rhythm, no edema, no murmur Respiratory: lungs clear, normal breath sounds, no respiratory distress, no accessory muscle use Gastrointestinal: normal bowel sounds, non tender, soft Extremities: normal inspection, other (tenderness over the right knee and left hip. No pain with flexion of the knee or rotation of the hip) Neurologic/Psychiatric: entry level manager II-XII nml as tested (hard of hearing), no motor/ sensory deficits, alert, normal mood/affect, oriented x 3 Skin: normal color, warm/dry Eliecer Coma Score Best Eye Response: (4) Open Spontaneously Best Verbal Response: (5) Oriented Best Motor Response: (6) Obeys Commands [place] Total: 15 Progress/Results/Core Measures Results/Orders Lab Results Laboratory Tests Test 02/23/17 19:37 02/23/17 20:05 Range/Units White Blood Count 15.9 H 4.3-11.0 10^3/uL Red Blood Count 4.43 4.35-5.85 10^6/uL Hemoglobin 13.4 11.5-16.0 G/DL Hematocrit 41 35-52 % Mean Corpuscular Volume 93 80-99 FL Mean Corpuscular Hemoglobin 30 25-34 PG Mean Corpuscular Hemoglobin Concent 33 32-36 G/DL Red Cell Distribution Width 14.9 H 10.0-14.5 % Platelet Count 159 130-400 10^3/uL Mean Platelet Volume 10.2 7.4-10.4 FL Neutrophils (%) (Auto) 86 H 42-75 % Lymphocytes (%) (Auto) 5 L 12-44 % Monocytes (%) (Auto) 9 0-12 % Eosinophils (%) (Auto) 0 0-10 % Basophils (%) (Auto) 0 0-10 % Neutrophils # (Auto) 13.7 H 1.8-7.8 X 10^3 Lymphocytes # (Auto) 0.8 L 1.0-4.0 X 10^3 Monocytes # (Auto) 1.4 H 0.0-1.0 X 10^3 Eosinophils # (Auto) 0.0 0.0-0.3 10^3/uL Basophils # (Auto) 0.0 0.0-0.1 10^3/uL Neutrophils % (Manual) 85 % Lymphocytes % (Manual) 9 % Monocytes % (Manual) 4 % Eosinophils % (Manual) 0 % Basophils % (Manual) 0 % Band Neutrophils 2 % Blood Morphology Comment NORMAL Prothrombin Time 14.1 12.2-14.7 SEC INR Comment 1.1 0.8-1.4 Activated Partial Thromboplast Time 28 24-35 SEC Sodium Level 139 135-145 MMOL/L Potassium Level 3.9 3.6-5.0 MMOL/L Chloride Level 101 98-107 MMOL/L Carbon Dioxide Level 26 21-32 MMOL/L Anion Gap 12 5-14 MMOL/L Blood Urea Nitrogen 18 7-18 MG/DL Creatinine 1.02 0.60-1.30 MG/DL Estimat Glomerular Filtration Rate 51 BUN/Creatinine Ratio 18 Glucose Level 131 H 70-105 MG/DL Lactic Acid Level 1.37 0.50-2.00 MMOL/L Calcium Level 9.3 8.5-10.1 MG/DL Total Bilirubin 1.3 H 0.1-1.0 MG/DL Aspartate Amino Transf (AST/SGOT) 22 5-34 U/L Alanine Aminotransferase (ALT/SGPT) 15 0-55 U/L Alkaline Phosphatase 50 40-136 U/L Total Creatine Kinase 168 29-168 U/L C-Reactive Protein High Sensitivity 1.53 H 0.00-0.50 MG/DL Total Protein 7.9 6.4-8.2 GM/DL Albumin 3.8 3.2-4.5 GM/DL Urine Color YELLOW Urine Clarity CLEAR Urine pH 8 5-9 Urine Specific [place] 1.010 L 1.016-1.022 Urine Protein 2+ H NEGATIVE Urine Glucose (UA) NEGATIVE NEGATIVE Urine Ketones 2+ H NEGATIVE Urine Nitrite NEGATIVE NEGATIVE Urine Bilirubin NEGATIVE NEGATIVE Urine Urobilinogen NORMAL NORMAL MG/DL Urine Leukocyte Esterase NEGATIVE NEGATIVE Urine RBC (Auto) 3+ H NEGATIVE Urine RBC 10-25 H /HPF Urine WBC RARE /HPF Urine Squamous Epithelial Cells 0-2 /HPF Urine Crystals NONE /LPF Urine Bacteria NEGATIVE /HPF Urine Casts NONE /LPF Urine Mucus NEGATIVE /LPF Urine Culture Indicated NO My Orders Orders - KENNETH GREGORY MD Cbc With Automated Diff (02/23/17 19:42) Comprehensive Metabolic Panel (02/23/17 19:42) Lactic Acid Analyzer (02/23/17 19:42) Blood Culture (02/23/17 19:42) Sputum Culture (02/23/17 19:42) Ua Culture If Indicated (02/23/17 19:42) Protime With Inr (02/23/17 19:42) Partial Thromboplastin Time (02/23/17 19:42) Chest 1 View, Ap/Pa Only (02/23/17 19:42) O2 (02/23/17 19:42) Saline Lock/Iv-Start (02/23/17 19:42) Saline Lock/Iv-Start (02/23/17 19:42) Vital Signs Adult Sepsis Patie Q1HR (02/23/17 19:42) Remove Rings In Anticipation O (02/23/17 19:42) Acetaminophen Tablet (Tylenol Tablet) (02/23/17 19:45) Ns Iv 1000 Ml (Sodium Chloride 0.9%) (02/23/17 19:42) Creatine Kinase (02/23/17 19:42) Ct Head/Cervical Spine Wo (02/23/17 19:46) Shoulder, Left, 3 Views (02/23/17 19:46) Pelvis (02/23/17 19:46) Hip, Left, 2 Views (02/23/17 19:46) Manual Differential (02/23/17 19:37) Knee, 3 Views, Bilateral (02/23/17 20:31) Ceftriaxone Injection (Rocephin Injectio (02/23/17 22:45) Hs C Reactive Protein (02/23/17 22:33) Medications Given in ED Current Medications Medications Dose Ordered Sig/Bailey Route Start Time Stop Time Status Last Admin Dose Admin Acetaminophen 1,000 mg ONCE ONCE PO 02/23/17 19:45 02/23/17 19:46 DC 02/23/17 19:50 1,000 MG Ceftriaxone Sodium 1000 mg/ Sodium Chloride 50 ml @ 100 mls/hr ONCE ONCE IV 02/23/17 22:45 02/23/17 23:14 DC 02/23/17 23:20 100 MLS/HR Vital Signs/I&O Vital Sign - Last 12Hours 02/23/17 02/23/17 02/23/17 02/23/17 19:34 19:34 19:50 19:51 Temp 103.1 103.1 103.1 Pulse 88 88 Resp 20 20 B/P (MAP) 171/75 (107) 171/75 Pulse Ox 90 90 97 O2 Delivery Room Air Room Air Nasal Cannula O2 Flow Rate 2.00 FiO2 97 Blood Pressure Mean: 107 Progress Note : Progress Note Septic workup was pursued but no source of infection was found. Patient was empirically treated with Rocephin. Occult pneumonia is a possibility given the chronic interstitial findings on chest x-ray which could obscure an acute infection. Diagnostic Imaging Diagonstic Imaging: Xray Plain Films/CT/US/NM/MRI: chest Comments Chest x-ray viewed by me and report reviewed. See report below: NAME: ANIBAL RUSSO [facility] REC#: [id number] PT STATUS: REG ER : 1930 PHYSICIAN: KENNETH GREGORY MD ADMIT DATE: 02/23/17/ER Draft Date of Exam:02/23/17 CHEST 1 VIEW, AP/PA ONLY EXAM: CHEST 1 VIEW, AP/PA ONLY INDICATION: Left shoulder pain. COMPARISON: Chest radiograph 10/07/2016. FINDINGS: Stable prominence of the interstitium. Stable cardiomegaly and central pulmonary vascularity. Calcified aorta. No pleural effusion. No dense consolidation. No pneumothorax. No acute osseous findings. Advanced thoracolumbar curvature. Partially visualized postoperative changes in the upper lumbar spine. No acute osseous findings. Advanced degenerative changes in the right shoulder, moderate on the left. IMPRESSION: Stable exam. There is cardiomegaly with prominent central pulmonary arteries. Prominent interstitium throughout both lungs is at least partially chronic. There may be an overlying component of fluid overload. Dictated on workstation # [id number] Dict: 02/23/174 Trans: 02/23/17 2139 [facility] [id number] Interpreted by: RENA ROSALES MD Departure Communication Time/Spoke to Admitting Phy: 21:[address] Mena agrees with admission. Patient is elderly and lives alone and has high fever. No injuries were identified from her fall. No source of infection was identified. Dr. Mena requested a CRP. Repeat chest x-ray will be performed in the morning with repeat labs. Rocephin will be administered as a precaution in the meantime. Time/Spoke to Consulting Physi: 21:50 Communication/Consulting Dr. Engel Impression Impression: Primary Impression: Fever Qualified Codes: R50.9 - Fever, unspecified Additional Impressions: Fall on same level Qualified Codes: W18.30XA - Fall on same level, unspecified, initial encounter Leukocytosis Qualified Codes: D72.829 - Elevated white blood cell count, unspecified Disposition: ADMITTED INPATIENT Condition: Improved Departure-Patient Inst. Referrals: MEENU LATIF DO (PCP/Family) Primary Care Physician KENNETH GREGORY MD Feb 23, 2017 21:53
[2017-02-23] MEDS ORDERED: cefTRIAXone INJECTION 1,000 MG in NS (IVPB) 50 ML IV ONE (22:45)
[2017-02-23 23:30] VITALS: BP 125/62
[2017-02-24] VITALS (9 sets, daily range): BP systolic 124–177; BP diastolic 47–79
[2017-02-24] MEDS: NS IV 1000 ML 1,000 ML IV SCH ×2 (00:54→10:17)
[2017-02-24 04:58] LABS: BASOPHILS % (AUTO) 0 % (0-10); EOSINOPHILS % (AUTO) 0 % (0-10); LYMPHOCYTES # (AUTO) 2.6 X 10^3 (1.0-4.0); LYMPHOCYTES % (AUTO) 16 % (12-44); MEAN CORPUSCULAR HEMOGLOBIN 30 PG (25-34); MEAN CORPUSCULAR HGB CONC 32 G/DL (32-36); MEAN CORPUSCULAR VOLUME 94 FL (80-99); MEAN PLATELET VOLUME 9.9 FL (7.4-10.4); MONOCYTES # (AUTO) 1.4 X 10^3 (0.0-1.0); MONOCYTES % (AUTO) 8 % (0-12); NEUTROPHILS # (AUTO) 12.4 X 10^3 (1.8-7.8); NEUTROPHILS % (AUTO) 76 % (42-75); PLATELET COUNT 133 10^3/uL (130-400); RED BLOOD COUNT 3.89 10^6/uL (4.35-5.85); RED CELL DISTRIBUTION WIDTH 14.9 % (10.0-14.5); WHITE BLOOD COUNT 16.4 10^3/uL (4.3-11.0)
[2017-02-24 05:18] LABS: ANION GAP 8 MMOL/L (5-14); BLOOD UREA NITROGEN 18 MG/DL (7-18); BUN/CREATININE RATIO 21; CALCIUM 8.3 MG/DL (8.5-10.1); CARBON DIOXIDE 26 MMOL/L (21-32); CHLORIDE 107 MMOL/L (98-107); CREATININE SERUM 0.84 MG/DL (0.60-1.30); GFR ESTIMATED > 60; GLUCOSE 97 MG/DL (70-105); SODIUM 141 MMOL/L (135-145); hs C REACTIVE PROTEIN 6.23 MG/DL (0.00-0.50)
--- NOTE | 2017-02-24 09:26 | Diagnostic Imaging Report ---
INDICATION: Shortness of breath COMPARISON: 02/23/17 FINDINGS: Frontal and lateral views of the chest demonstrate new effusion and/or atelectasis in the left base. The right lung is clear. The heart is prominent with slight central vascular congestion. There is no pneumothorax. IMPRESSION: 1. New effusion and atelectasis in the left base 2. Stable cardiac enlargement with pulmonary with central vascular congestion. Dictated by: Dictated on workstation # [id number]
--- NOTE | 2017-02-24 11:42 | History & Physical-Hospitalist ---
HPI History of Present Illness: HPI/Chief Complaint this is an 86-year-old white female who had been in her usual state of health until yesterday when she fell reaching up to pick something up and struck her head. She fell on the floor and was unable to get up by herself because of the pain. She has severe scoliosis which impairs her ability to get around. She denies that she passed out or that she had any dizziness or other symptoms but rather lost her balance and struck to the bedside table. She notes that she had been hoarse that started 2 or 3 days prior to this. When she presented to the emergency room she had a fever up of 101. Urine was unremarkable C- reactive protein was elevated and chest x-ray shows a left pleural effusion and possible atelectasis. She is been afebrile overnight. Source: patient, family Exam Limitations: no limitations Date Seen 02/24/17 Time Seen by Provider: 11:30 Attending Physician Huyen Galeano MD PCP Rock Pelaez DO Referring Physician Date of Admission Feb 23, 2017 at 22:47 Home Medications & Allergies Home Medications Reviewed patient Home Medication Reconciliation Form Allergies Allergies Coded Allergies No Known Drug Allergies (Unverified10/07/16) Past Fcflpkw-Qtcsaa-Ijbzoo Hx Patient Social History Marrital Status: Employed/Student: retired Alcohol Use: Denies Use Recreational Drug Use: No Smoking Status: Never a Smoker 2nd Hand Smoke Exposure: No Physical Abuse Screen: No Sexual Abuse: No Recent Foreign Travel: No Contact w/other who traveled: No Recent Hopitalizations: No Recent Infectious Disease Expo: No Immunizations Up To Date Tetanus Booster (TDap): Unknown Date of Pneumonia Vaccine: Aug 12, 2015 Date of Influenza Vaccine: Oct 01, 2016 Seasonal Allergies Seasonal Allergies: No Surgeries HX Surgeries: Yes (left TKR, hernia repair x3, right hip replaced, bunionectomy , ) Surgeries: Appendectomy, Orthopedic Respiratory Hx Respiratory Disorders: Yes (pneumonia in november 2015) Respiratory Disorders: Pneumonia Cardiovascular Hx Cardiovascular Disorders: Yes Cardiac Disorders: Hypertension Neurological Hx Neurological Disorders: No Reproductive System Hx Reproductive Disorders: No Sexually Transmitted Disease: No HIV/AIDS: No Female Reproductive Disorders: Denies Genitourinary Hx Genitourinary Disorders: Yes Genitourinary Disorders: Benign Prostatic Hyperpl Gastrointestinal Hx Gastrointestinal Disorders: No Musculoskeletal Hx Musculoskeletal Disorders: Yes Musculoskeletal Disorders: Arthritis, Scoliosis, Chronic Back Pain Endocrine Hx Endocrine Disorders: No HEENT HX ENT Disorders: Yes (cataracts removed, partial plate) HEENT Disorders: Cataract Loss of Vision: Denies Hearing Impairment: Denies Cancer Hx Cancer: No Psychosocial Hx Psychiatric Problems: Yes Behavioral Health Disorders: Anxiety Integumentary HX Skin/Integumentary Disorder: No Blood Transfusions Hx Blood Disorders: No Review of Systems Constitutional: see HPI, weakness, weight loss EENTM: no symptoms reported Respiratory: cough, short of breath, other (hoarseness) Cardiovascular: no symptoms reported Gastrointestinal: no symptoms reported Genitourinary: no symptoms reported Musculoskeletal: joint pain, muscle pain, muscle stiffness Skin: no symptoms reported Psychiatric/Neurological: No Symptoms Reported Physical Exam Physical Exam Vital Signs Vital Sign - Last 12Hours 02/23/17 19:51 O2 Flow Rate 2.00 FiO2 97 Capillary Refill : Less Than 3 Seconds General Appearance: Cachetic HEENT: Normal ENT Inspection, Other (slight bruise over the right eye) Neck: Normal Inspection Respiratory: Chest Non Tender, Lungs Clear, Normal Breath Sounds, No Accessory Muscle Use Cardiovascular: Regular Rate, Rhythm, No JVD, Normal Peripheral Pulses, Systolic Murmur Gastrointestinal: No Organomegaly, Non Tender, Soft Rectal: Deferred Back: Other (scoliosis) Extremity: Non Tender, No Calf Tenderness Neurologic/Psychiatric: Alert, Oriented x3, Normal Mood/Affect Skin: Pallor Lymphatic: No Adenopathy Results Results/Procedures Lab Laboratory Tests 02/23/17 19:37 02/24/17 04:26 Assessment/Plan Admission Diagnosis 1. Fall secondary to loss of balance with extended period of time on the floor with mild dehydration. 2. Fever leukocytosis and possible left lower lobe effusion and/or infiltrate. Blood cultures are pending C reactive protein is high lactic acid is normal on Rocephin day number 2 3. Weakness and weight loss will began ambulation as tolerated 4. Increased vascular redistribution with a recently normal ejection fraction will check a BNP. Copy Copies To 1: ROCK PELAEZ DO Clinical Quality Measures DVT/VTE Risk/Contraindication: Risk Factor Score Per Nursin RFS Level Per Nursing on Admit: 4+=Very High HUYEN GALEANO MD Feb 24, 2017 11:42
[2017-02-24] MEDS: GABAPENTIN 300 MG (NEURONTIN) CAP PO SCH ×2 (12:21→21:33)
[2017-02-24] MEDS: ACETAMINOPHEN 325 MG TABLET/CAPLET (TYLENOL) PO PRN ×2 (12:21→22:43)
[2017-02-24 13:06] LABS: CREATINE KINASE 1187 U/L (29-168)
[2017-02-24 13:12] LABS: TROPONIN I < 0.30 NG/ML (<0.30)
--- NOTE | 2017-02-24 14:03 | Consultation ---
History of Present Illness History of Present Illness Patient Consulted On(lucius/time) 02/24/17 13:58 Time Seen by Provider: 09:18 History of Present Illness This is a trauma consult regarding fall with blow to head, no LOC. Pt admitted because of high fever and elevated WBC, r/o sepsis. HPI: Pt arrived by EMS, last night . Pt is a pleasant 86-year-old woman who presented to the emergency room after having a fall in her home several hours prior to her arrival. Her medical alert call button apparently did not work and she was found by family. She complains of left hip pain, right knee pain, and headache. She struck the left side of her head on the floor. At the time she was febrile with a temperature of 103.1. She reports having a mild cough and some diarrhea recently. According to ER physician last night -- She is alert and oriented. She denies loss of consciousness. She denies prodrome to her fall although she has complained of some dizziness here in the ER. She fell while trying to reach something on a table or dresser. When seen this am, pt denied headache, no SOB, denies cough. She has not had an elevated temperature since the very first one. CXR showed possible new atelectasis vs effusion. Allergies and Home Medications Allergies Coded Allergies: No Known Drug Allergies (Unverified , 10/07/16) Home Medications Alendronate Sodium 70 Mg Tablet, 70 MG PO [place], (Reported) Amlodipine Besylate 5 Mg Tablet, 5 MG PO DAILY, (Reported) Ascorbic Acid 250 Mg Tab, 250 MG PO DAILY, (Reported) Atenolol 50 Mg Tablet, 50 MG PO DAILY, (Reported) Calcium Carbonate/Vitamin D3 1 Each Tablet, 1 TAB PO DAILY, (Reported) Cholecalciferol 2,000 Unit Capsule, 2,000 UNIT PO DAILY, (Reported) Fentanyl 1 Each Patch.td72, 25 MCG TD EVERY 72 HOURS, (Reported) Folic Acid 0.8 Mg Capsule, 0.8 MG PO DAILY, (Reported) Furosemide 20 Mg Tablet, 20 MG PO DAILY, (Reported) Gabapentin 600 Mg Tablet, 600 MG PO TID, (Reported) Glucosam/Msm/Chond/Rew747/Hyal 1 Each Tablet, 1 TAB PO BID, (Reported) Hydrocodone/Acetaminophen 1 Each Tablet, 1-2 TAB PO DAILY PRN for PAIN, ( Reported) Latanoprost 2.5 Ml Drops, 1 DROP OD HS, (Reported) Magnesium Oxide 400 Mg Tablet, 400 MG PO DAILY, (Reported) Potassium Chloride 20 Meq Tab.er.prt, 20 MEQ PO DAILY, (Reported) Ropinirole HCl 1 Mg Tablet, 1 MG PO HS, (Reported) Past Gcskyxt-Yeujrz-Fcjadu Hx Patient Social History Alcohol Use: Denies Use Recreational Drug Use: No Smoking Status: Never a Smoker 2nd Hand Smoke Exposure: No Recent Foreign Travel: No Contact w/Someone Who Travel: No Recent Infectious Disease Expo: No Recent Hopitalizations: No Physical Abuse Screen: No Sexual Abuse: No Immunizations Up To Date Tetanus Booster (TDap): Unknown Date of Pneumonia Vaccine: Aug 12, 2015 Date of Influenza Vaccine: Oct 01, 2016 Seasonal Allergies Seasonal Allergies: No Surgeries HX Surgeries: Yes (left TKR, hernia repair x3, right hip replaced, bunionectomy , ) Surgeries: Appendectomy, Orthopedic Respiratory Hx Respiratory Disorders: Yes (pneumonia in november 2015) Respiratory Disorders: Pneumonia Cardiovascular Hx Cardiac Disorders: Yes Cardiac Disorders: Hypertension Neurological Hx Neurological Disorders: No Reproductive System Hx Reproductive Disorders: No Sexually Transmitted Disease: No HIV/AIDS: No Female Reproductive Disorders: Denies Genitourinary Hx Genitourinary Disorders: Yes Genitourinary Disorders: Benign Prostatic Hyperpl Gastrointestinal Hx Gastrointestinal Disorders: No Musculoskeletal Hx Musculoskeletal Disorders: Yes Musculoskeletal Disorders: Arthritis, Scoliosis, Chronic Back Pain Endocrine Hx Endocrine Disorders: No HEENT HX ENT Disorders: Yes (cataracts removed, partial plate) HEENT Disorders: Cataract Loss of Vision: Denies Hearing Impairment: Denies Cancer Hx Cancer: No Psychosocial Hx Psychiatric Problems: Yes Behavioral Health Disorders: Anxiety Integumentary HX Skin/Integumentary Disorder: No Blood Transfusions Hx Blood Disorders: No Family Medical History Significant Family History: Hypertension Review of Systems-General Constitutional: No chills, No diaphoresis, weakness EENTM: blurred vision, hearing loss, No epistaxis, No mouth swelling Respiratory: cough, No dyspnea on exertion, No hemoptysis, No short of breath Cardiovascular: No chest pain, No edema, No palpitations Gastrointestinal: No abdominal pain, No hematemesis, No jaundice Genitourinary: No dysuria, No frequency, No hematuria Musculoskeletal: back pain, joint pain, muscle stiffness Skin: No change in color, No change in hair/nails Psychiatric/Neurological: Denies Anxiety, Denies Depressed, Denies Seizure, Weakness Physical Exam-General Problems Physical Exam Vital Signs Vital Sign - Last 12Hours 02/23/17 19:51 O2 Flow Rate 2.00 FiO2 97 Capillary Refill : Less Than 3 Seconds General Appearance: WD/WN, no apparent distress, thin Eyes: Bilateral Eye EOMI, Bilateral Eye PERRL HEENT: pharynx normal, No scleral icterus (R), No scleral icterus (L) Neck: supple, No thyromegaly Respiratory: lungs clear, no respiratory distress, no accessory muscle use, other (decreased breath sounds and dullness to percussion at left base) Cardiovascular: regular rate, rhythm, no murmur Gastrointestinal: soft, no organomegaly, no pulsatile mass Back: no CVA tenderness, no vertebral tenderness Extremities: no pedal edema, no calf tenderness Neurologic/Psychiatric: waiter II-XII nml as tested, no motor/sensory deficits, alert, normal mood/affect, oriented x 3 Skin: normal color, warm/dry Lymphatic: no adenopathy (neck, axilla or groin) Data Review Labs Laboratory Tests 02/23/17 19:37: White Blood Count 15.9H, Red Blood Count 4.43, Hemoglobin 13.4, Hematocrit 41, Mean Corpuscular Volume 93, Mean Corpuscular Hemoglobin 30, Mean Corpuscular Hemoglobin Concent 33, Red Cell Distribution Width 14.9H, Platelet Count 159, Mean Platelet Volume 10.2, Neutrophils (%) (Auto) 86H, Lymphocytes (%) (Auto) 5L , Monocytes (%) (Auto) 9, Eosinophils (%) (Auto) 0, Basophils (%) (Auto) 0, Neutrophils # (Auto) 13.7H, Lymphocytes # (Auto) 0.8L, Monocytes # (Auto) 1.4H, Eosinophils # (Auto) 0.0, Basophils # (Auto) 0.0, Neutrophils % (Manual) 85, Lymphocytes % (Manual) 9, Monocytes % (Manual) 4, Eosinophils % (Manual) 0, Basophils % (Manual) 0, Band Neutrophils 2, Blood Morphology Comment NORMAL, Prothrombin Time 14.1, INR Comment 1.1, Activated Partial Thromboplast Time 28, Sodium Level 139, Potassium Level 3.9, Chloride Level 101, Carbon Dioxide Level 26, Anion Gap 12, Blood Urea Nitrogen 18, Creatinine 1.02, Estimat Glomerular Filtration Rate 51, BUN/Creatinine Ratio 18, Glucose Level 131H, Lactic Acid Level 1.37, Calcium Level 9.3, Total Bilirubin 1.3H, Aspartate Amino Transf (AST /SGOT) 22, Alanine Aminotransferase (ALT/SGPT) 15, Alkaline Phosphatase 50, Total Creatine Kinase 168, C-Reactive Protein High Sensitivity 1.53H, Total Protein 7.9, Albumin 3.8 02/23/17 20:05: Urine Color YELLOW, Urine Clarity CLEAR, Urine pH 8, Urine Specific [place] 1.010L, Urine Protein 2+H, Urine Glucose (UA) NEGATIVE, Urine Ketones 2+H, Urine Nitrite NEGATIVE, Urine Bilirubin NEGATIVE, Urine Urobilinogen NORMAL, Urine Leukocyte Esterase NEGATIVE, Urine RBC (Auto) 3+H, Urine RBC 10-25H, Urine WBC RARE, Urine Squamous Epithelial Cells 0-2, Urine Crystals NONE, Urine Bacteria NEGATIVE, Urine Casts NONE, Urine Mucus NEGATIVE, Urine Culture Indicated NO 02/24/17 04:26: White Blood Count 16.4H, Red Blood Count 3.89L, Hemoglobin 11.7, Hematocrit 37, Mean Corpuscular Volume 94, Mean Corpuscular Hemoglobin 30, Mean Corpuscular Hemoglobin Concent 32, Red Cell Distribution Width 14.9H, Platelet Count 133, Mean Platelet Volume 9.9, Neutrophils (%) (Auto) 76H, Lymphocytes (%) (Auto) 16 , Monocytes (%) (Auto) 8, Eosinophils (%) (Auto) 0, Basophils (%) (Auto) 0, Neutrophils # (Auto) 12.4H, Lymphocytes # (Auto) 2.6, Monocytes # (Auto) 1.4H, Eosinophils # (Auto) 0.0, Basophils # (Auto) 0.0, Sodium Level 141, Potassium Level 4.0, Chloride Level 107, Carbon Dioxide Level 26, Anion Gap 8, Blood Urea Nitrogen 18, Creatinine 0.84, Estimat Glomerular Filtration Rate > 60, BUN/ Creatinine Ratio 21, Glucose Level 97, Calcium Level 8.3L, C-Reactive Protein High Sensitivity 6.23H 02/24/17 12:40: Total Creatine Kinase 1187H, Troponin I < 0.30, B-Type Natriuretic Peptide 1148.7H Assessment/Plan Assessment/Plan Assessment/Plan 1. S/P fall struck head with no loss of consciousness 2. R/O sepsis, possible pneumonia Pt was admitted and had neuro checks performed, no change in mental status. Maximum medical management, being treated with ABX. Nothing from trauma service perspective, will sign off. Thank you for this consult. Clinical Quality Measures DVT/VTE Risk/Contraindication: Risk Factor Score Per Nursin RFS Level Per Nursing on Admit: 4+=Very High JEANNIE BLANCA DO Feb 24, 2017 14:03
[2017-02-24] MEDS ORDERED: cefTRIAXone INJECTION 1,000 MG in NS (IVPB) 50 ML IV SCH (22:00)
[2017-02-25] MEDS ORDERED: rOPINIRole 1 MG (REQUIP) TABLET ONE (00:24)
[2017-02-25] MEDS ORDERED: amLODIPine 5 MG (NORVASC) TAB ONE (00:24)
[2017-02-25] MEDS ORDERED: ATENOLOL 50 MG (TENORMIN) TAB ONE (00:24)
[2017-02-25 04:45] VITALS: BP 170/75
[2017-02-25 04:52] LABS: MEAN PLATELET VOLUME 10.6 FL (7.4-10.4); RED BLOOD COUNT 3.85 10^6/uL (4.35-5.85); RED CELL DISTRIBUTION WIDTH 14.9 % (10.0-14.5); WHITE BLOOD COUNT 13.1 10^3/uL (4.3-11.0)
[2017-02-25 05:16] LABS: ANION GAP 11 MMOL/L (5-14); BLOOD UREA NITROGEN 14 MG/DL (7-18); BUN/CREATININE RATIO 16; CALCIUM 8.3 MG/DL (8.5-10.1); CARBON DIOXIDE 23 MMOL/L (21-32); CHLORIDE 108 MMOL/L (98-107); CREATINE KINASE 756 U/L (29-168); CREATININE SERUM 0.85 MG/DL (0.60-1.30); GFR ESTIMATED > 60; GLUCOSE 97 MG/DL (70-105); POTASSIUM 3.6 MMOL/L (3.6-5.0); SODIUM 142 MMOL/L (135-145)
[2017-02-25 08:00] VITALS: BP 190/84
[2017-02-25] MEDS ORDERED: ASCO1TAB12 PO (08:31)
[2017-02-25] MEDS: GABAPENTIN 300 MG (NEURONTIN) CAP PO SCH (08:33)
--- NOTE | 2017-02-25 08:48 | Diagnostic Imaging Report ---
INDICATION: Developing pleural effusion. TIME OF EXAMINATION: 0827 hours. FINDINGS: Since the examination of one day earlier, there is no significant change in the mild cardiomegaly and pulmonary venous congestion. Blunting of the left costophrenic sulcus has not appreciably changed. There is no pneumothorax. Right convexity curvature of the thoracic spine and post operative changes in the lumbar spine are also unchanged in appearance. IMPRESSION: Mild left pleural effusion or thickening, similar to the previous study. Chronic findings have also remained stable without new abnormality or adverse change. Dictated by: Dictated on workstation # [id number]
[2017-02-25] MEDS ORDERED: ATENOLOL 50 MG (TENORMIN) TAB PO SCH (09:00)
[2017-02-25] MEDS ORDERED: amLODIPine 5 MG (NORVASC) TAB PO SCH (09:00)
[2017-02-25] MEDS ORDERED: CEFU250T80 PO (09:27)
--- NOTE | 2017-02-25 09:35 | Discharge Summary-Hospitalist ---
Diagnosis/Chief Complaint Date of Admission Feb 24, 2017 at 12:41 Date of Discharge February 25, 2017 Discharge Date: Feb 25, 2017 Discharge Time: 11:00 Admission Diagnosis 1. Fall secondary to loss of balance with extended period of time on the floor with mild dehydration. 2. Fever leukocytosis and possible left lower lobe effusion and/or infiltrate. Blood cultures are pending C reactive protein is high lactic acid is normal on Rocephin day number 2 3. Weakness and weight loss will began ambulation as tolerated 4. Increased vascular redistribution with a recently normal ejection fraction will check a BNP. Discharge Diagnosis rhabdomyolysis secondary to fall and prolonged period of time on the floor. Fluid overload. Left lower lobe infiltrate. Osteoporosis. Scoliosis Hypertension Reason Hospital Visit/Course this is an 86-year-old white female who had been in her usual state of health until yesterday when she fell reaching up to pick something up and struck her head. She fell on the floor and was unable to get up by herself because of the pain. She has severe scoliosis which impairs her ability to get around. She denies that she passed out or that she had any dizziness or other symptoms but rather lost her balance and struck to the bedside table. She notes that she had been hoarse that started 2 or 3 days prior to this. When she presented to the emergency room she had a fever up of 101. Urine was unremarkable C- reactive protein was elevated and chest x-ray shows a left pleural effusion and possible atelectasis. She is been afebrile overnight. Discharge Summary Procedures CT head and cervical spine Consultations none Discharge Physical Examination Allergies: Coded Allergies: No Known Drug Allergies (Unverified , 10/07/16) Vitals & I&Os Vital Signs Date Time Temp Pulse Resp B/P (MAP) Pulse Ox O2 Delivery O2 Flow Rate FiO2 02/25/17 08:00 99.7 70 20 190/84 93 Room Air 02/24/17 07:49 2.00 02/23/17 19:51 97 General Appearance: Alert, Oriented X3 Respiratory: Clear to Auscultation Cardiovascular: Regular Rate Abdominal: Normal Bowel Sounds Psych/Mental Status: Mental Status NL Hospital Course patient was admitted for observation after a fall and a prolonged period of time on the floor. Because of her fever and leukocytosis and a left lower lobe infiltrate she qualified for inpatient. she did note that she had been hoarse and had a little bit of a cough prior to presentation. The patient's blood cultures were negative. She was placed on Rocephin. She did have a left lower lobe mentioned that possibly was an infiltrate and this was treated for pneumonia. The patient in addition had some fluid overload because of the dehydration and the elevated CPK. The fluid overload improved without Lasix. This was pursued because of the elevated CPK and not wanting to volume deplete her. At the time of discharge she is improved feeling better and feels like she is her usual state of health. She is discharged on Ceftin 250 twice a day for 7 days with follow-up with Dr. Pelaez this week. All other medications remain the same. Labs (last 24 hrs) Laboratory Tests 02/24/17 12:40: Total Creatine Kinase 1187H, Troponin I < 0.30, B-Type Natriuretic Peptide 1148.7H 02/25/17 04:17: Total Creatine Kinase 756H, B-Type Natriuretic Peptide 786.8H, White Blood Count 13.1H, Red Blood Count 3.85L, Hemoglobin 11.6, Hematocrit 36, Mean Corpuscular Volume 94, Mean Corpuscular Hemoglobin 30, Mean Corpuscular Hemoglobin Concent 32, Red Cell Distribution Width 14.9H, Platelet Count 148, Mean Platelet Volume 10.6H, Sodium Level 142, Potassium Level 3.6, Chloride Level 108H, Carbon Dioxide Level 23, Anion Gap 11, Blood Urea Nitrogen 14, Creatinine 0.85, Estimat Glomerular Filtration Rate > 60, BUN/Creatinine Ratio 16, Glucose Level 97, Calcium Level 8.3L Microbiology 02/23/17 Blood Culture - Preliminary, Resulted No growth Pending Labs Laboratory Tests 02/25/17 04:17: White Blood Count 13.1, Red Blood Count 3.85, Hemoglobin 11.6, Hematocrit 36, Mean Corpuscular Volume 94, Mean Corpuscular Hemoglobin 30, Mean Corpuscular Hemoglobin Concent 32, Red Cell Distribution Width 14.9, Platelet Count 148, Mean Platelet Volume 10.6, Sodium Level 142, Potassium Level 3.6, Chloride Level 108, Carbon Dioxide Level 23, Anion Gap 11, Blood Urea Nitrogen 14, Creatinine 0.85, Estimat Glomerular Filtration Rate > 60, BUN/Creatinine Ratio 16, Glucose Level 97, Calcium Level 8.3, Total Creatine Kinase 756, B-Type Natriuretic Peptide 786.8 Discharge Home Medications: Active Scripts Active Cefuroxime (Cefuroxime Axetil) 250 Mg Tablet 250 Mg PO BID 7 Days Reported Carly-C 500 mg Tablet (Ascorbate Calcium/Bioflavonoid) 1 Each Tablet 500 Mg PO HS Folic Acid 0.8 Mg Capsule 0.8 Mg PO HS Alendronate Sodium 70 Mg Tablet 70 Mg PO MO Fentanyl Patch 25 MCG (Fentanyl) 1 Each Patch.td72 25 Mcg TD EVERY 72 HOURS Latanoprost 2.5 Ml Drops 1 Drop OD HS Ropinirole HCl 1 Mg Tablet 1 Mg PO HS Hydrocodon-Acetaminophn 10-325 (Hydrocodone/Acetaminophen) 1 Each Tablet 1 Tab PO Q8H PRN Gabapentin 600 Mg Tablet 600 Mg PO TID Atenolol 50 Mg Tablet 50 Mg PO DAILY Furosemide 20 Mg Tablet 20 Mg PO DAILY PRN Amlodipine Besylate 5 Mg Tablet 5 Mg PO DAILY Potassium Chloride 20 Meq Tab.er.prt 20 Meq PO DAILY PRN Magnesium (Magnesium Oxide) 400 Mg Tablet 400 Mg PO HS Eql Pqjaysytlxl-Akbjgi-Ryi Tab (Glucosam/Msm/Chond/Vyd452/Hyal) 1 Each Tablet 1 Tab PO 1200 Vitamin D (Cholecalciferol) 2,000 Unit Capsule 2,000 Unit PO 1200 Calcium 600 + D Caplet (Calcium Carbonate/Vitamin D3) 1 Each Tablet 1 Tab PO HS Condition at discharge stable Instructions to patient/family Please see electonic discharge instructions given to patient. Clinical Quality Measures DVT/VTE Risk/Contraindication: Risk Factor Score Per Nursin RFS Level Per Nursing on Admit: 4+=Very High JAJA GALEANO MD Feb 25, 2017 09:35
[2017-02-25 10:30] VITALS: BP 190/84
[2017-02-25] MEDS ORDERED: rOPINIRole 1 MG (REQUIP) TABLET PO SCH (21:00)
== END 2017-02-25 10:43 | disposition home or self-care (01) | DRG 565 ==
LOC: EDUNIT# 19:33 → ER 19:34 → UNDOADMOB 22:47 → 4TH 22:47 → OBSVTOIN 02-24 12:41 → INTOOBSV 02-24 12:41 → UNDODISIN 02-25 10:43 → ENPENDDIS 02-25 11:00
PROVIDERS: ADMIT Internal Medicine; ATTEND Internal Medicine
DX: T79.6XXA Traumatic ischemia of muscle, initial encounter (principal); E86.0 Dehydration; E87.70 Fluid overload, unspecified; R91.8 Other nonspecific abnormal finding of lung field; J90 Pleural effusion, not elsewhere classified; M81.0 Age-related osteoporosis without current pathological fracture; M41.9 Scoliosis, unspecified; S00.11XA Contusion of right eyelid and periocular area, initial encounter; R50.9 Fever, unspecified; D72.829 Elevated white blood cell count, unspecified; R51 Headache; M25.552 Pain in left hip; M25.561 Pain in right knee; R05 Cough; I10 Essential (primary) hypertension; F41.9 Anxiety disorder, unspecified; M19.91 Primary osteoarthritis, unspecified site; M54.9 Dorsalgia, unspecified; R63.4 Abnormal weight loss; Z96.652 Presence of left artificial knee joint; Z96.641 Presence of right artificial hip joint; W06.XXXA Fall from bed, initial encounter; Y92.003 Bedroom of unspecified non-institutional (private) residence as the place of occurrence of the external cause
CPT/HCPCS: 36415; 70450; 71010; 71020; 72125; 72170; 73030; 73502; 80048; 80053; 81000; 82550; 83605; 83880; 84484; 85007; 85025; 85027; 85610; 85730; 86141; 87040; 96374; G0378

== ENCOUNTER → 2017-08-09 | Outpatient (CLI) | payer MEDICARE, OTHER ==
[~2017-08-09] MED LIST changes: +ASCO1TAB12 PO; +CEFU250T80 PO
== END ==
LOC: RAD 09:53
PROVIDERS: ATTEND Internal Medicine
DX: Z12.31 Encounter for screening mammogram for malignant neoplasm of breast (principal)
CPT/HCPCS: 77067

== ENCOUNTER 2018-01-07 16:43 | Emergency (ER) | payer MEDICARE, OTHER ==
[~2018-01-07] VITALS: Ht 152.4 cm; Wt 54.4 kg
[~2018-01-07 16:43] MED LIST changes: +HYDR-34 PO; -HYDR-3816 PO
--- OUTSIDE RECORDS SUMMARY | 2018-01-07 16:50 | XMS REPORT | Continuity of Care Document ---
Author Author [facility] Organization [facility] Address Unknown Phone Unavailable Allergies Active Description Code Type Severity Reaction Onset Reported/Identified Relationship to Patient Clinical Status Yes NO KNOWN DRUG ALLERGIES NO KNOWN DRUG ALLERG UNKNOWN Yes NKDA NKDA Mild N/ A 08/29/2009 Yes No Known Drug Allergies [id number] Drug Allergy Unknown N/A 10/07/2016 Medications There is no data. Problems Date Dx Coded Attending Type Code Diagnosis Diagnosed By 04/27/2010 Ot 735.4 05/03/2010 Ot 401.9 05/03/2010 Ot 737.30 05/03/2010 Ot V57.1 12/29/2011 Ot 285.1 AC POSTHEMORRHAG ANEMIA 12/29/2011 Ot 333.94 RESTLESS LEGS SYNDROME 12/29/2011 Ot 401.9 HYPERTENSION NOS 12/29/2011 Ot 459.81 VENOUS INSUFFICIENCY NOS 12/29/2011 Ot 486 PNEUMONIA, ORGANISM NOS 12/29/2011 Ot 564.00 UNSPEC CONSTIPATION 12/29/2011 Ot 707.10 ULCER OF LOWER LIMB NOS 12/29/2011 Ot 715.36 LOC OSTEOARTH NOS-L/LEG 12/29/2011 Ot 780.97 ALTERED MENTAL STATUS 12/29/2011 Ot E937.9 ADV EFF SEDAT/HYPNOT NOS 01/07/2012 Ot 333.94 RESTLESS LEGS SYNDROME 01/07/2012 Ot 401.9 HYPERTENSION NOS 01/07/2012 Ot 428.0 CONGESTIVE HEART FAILURE NOS 01/07/2012 Ot 428.30 UNSPEC DIASTOLIC HRT FAILURE 01/07/2012 Ot 454.0 LEG VARICOSITY W ULCER 01/07/2012 Ot 486 PNEUMONIA, ORGANISM NOS 01/07/2012 Ot 518.81 ACUTE RESPIRATORY FAILURE 01/07/2012 Ot 715.90 OSTEOARTHROS NOS-UNSPEC 01/07/2012 Ot 733.00 OSTEOPOROSIS NOS 01/07/2012 Ot V43.64 HIP JOINT REPLACEMENT STATUS 01/07/2012 Ot V43.65 KNEE JOINT REPLACEMENT STATUS 07/01/2012 Ot V43.65 KNEE JOINT REPLACEMENT STATUS 07/01/2012 Ot V54.81 AFTERCARE FOLLOWING JOINT REPLACEMENT 07/01/2012 Ot V57.1 PHYSICAL THERAPY NEC 04/07/2014 MEENU LATIF DO Ot 787.91 DIARRHEA 07/29/2014 Ot 733.90 07/29/2014 Ot 793.81 07/29/2014 Ot V76.12 07/29/2014 Ot 793.81 07/29/2014 Ot 611.89 07/29/2014 Ot 397.0 07/29/2014 Ot 401.9 07/29/2014 Ot 424.0 07/29/2014 Ot 782.3 07/29/2014 Ot 790.6 07/29/2014 Ot 401.9 07/29/2014 Ot 782.3 07/29/2014 Ot 735.4 07/29/2014 Ot V72.63 07/29/2014 Ot V74.8 07/29/2014 Ot 611.89 07/29/2014 Ot V67.9 07/29/2014 Ot 428.0 07/29/2014 Ot 511.9 07/29/2014 Ot 724.3 07/29/2014 Ot V45.4 07/29/2014 Ot 793.81 07/29/2014 Ot 786.7 07/29/2014 Ot 729.5 07/29/2014 Ot 733.90 07/29/2014 Ot 427.89 07/29/2014 Ot 793.81 07/29/2014 Ot 715.96 07/29/2014 Ot V57.1 07/29/2014 Ot V57.21 07/29/2014 Ot V72.63 07/29/2014 Ot V72.81 07/29/2014 Ot V72.83 07/29/2014 Ot V74.8 07/29/2014 Ot 793.81 07/29/2014 Ot 429.3 07/29/2014 Ot 518.3 07/29/2014 Ot 486 07/29/2014 MEENU LATIF DO Ot 793.89 07/29/2014 MEENU LATIF DO Ot V76.12 07/29/2014 MEENU LATIF DO Ot 793.89 07/29/2014 MEENU LATIF DO Ot 737.30 07/29/2014 MEENU LATIF DO Ot 783.21 07/29/2014 MEENU LATIF DO Ot 787.91 07/29/2014 MEENU LATIF DO Ot 789.04 07/29/2014 MEENU LATIF DO Ot 793.6 07/29/2014 Ot 787.91 08/19/2014 YOLIS LATIF MULE RIDER Ot 733.00 08/19/2014 YOLIS LATIF MULE RIDER Ot V76.12 01/21/2015 BALTA MORTON MD Ot 459.33 CHRONIC VENOUS HYPERTEN W ULCER/INFLAMMA 01/21/2015 BALTA MORTON MD Ot 682.6 CELLULITIS OF LEG 01/21/2015 BALTA MORTON MD Ot 707.12 ULCER OF CALF 05/23/2015 SHAYY FREIRE DAVID Emir Ot M54.2 CERVICALGIA 08/01/2015 Ot 735.4 08/01/2015 Ot V72.63 08/01/2015 Ot V74.8 08/01/2015 Ot 611.89 08/01/2015 Ot V67.9 08/01/2015 Ot 428.0 08/01/2015 Ot 511.9 08/01/2015 Ot 724.3 08/01/2015 Ot V45.4 08/01/2015 Ot 793.81 08/01/2015 Ot 786.7 08/01/2015 Ot 729.5 08/01/2015 Ot 733.90 08/01/2015 Ot 427.89 08/01/2015 Ot 793.81 08/01/2015 Ot 715.96 08/01/2015 Ot V57.1 08/01/2015 Ot V57.21 08/01/2015 Ot V72.63 08/01/2015 Ot V72.81 08/01/2015 Ot V72.83 08/01/2015 Ot V74.8 08/01/2015 Ot 793.81 08/01/2015 Ot 429.3 08/01/2015 Ot 518.3 08/01/2015 Ot 486 08/01/2015 MEENU LATIF DO Ot 793.89 08/01/2015 MEENU LATIF DO Ot V76.12 08/01/2015 MEENU LATIF DO Ot 793.89 08/01/2015 MEENU LATIF DO Ot 737.30 08/01/2015 LATIF DO MEENU Mccord Ot 783.21 08/01/2015 LATIF DO MEENU Mccord Ot 787.91 08/01/2015 LATIF DO MEENU Mccord Ot 789.04 08/01/2015 LATIF DO MEENU Mccord Ot 793.6 08/01/2015 Ot 787.91 08/01/2015 LATIFYOLIS MULE RIDER Ot 733.00 08/01/2015 LATIF, YOLIS Areli MULE RIDER Ot V76.12 08/23/2015 LATIF DO, MEENU Mccord Ot Z12.31 12/01/2015 LATIF DO, MEENU Mccord Ot J18.9 PNEUMONIA, UNSPECIFIED ORGANISM 12/06/2015 LATIF DO, MEENU Flex Ot J18.9 PNEUMONIA, UNSPECIFIED ORGANISM 12/07/2015 LATIF DO, MEENU Mccord Ot J18.9 PNEUMONIA, UNSPECIFIED ORGANISM 12/08/2015 SALOMON FREIRE MEENU Flex Ot J18.9 PNEUMONIA, UNSPECIFIED ORGANISM 12/09/2015 LATIF DO, MEENU Mccord Ot J18.9 PNEUMONIA, UNSPECIFIED ORGANISM 12/10/2015 LATIF , MEENU Mccord Ot J18.9 PNEUMONIA, UNSPECIFIED ORGANISM 12/10/2015 LATIF DO, MEENU Mccord Ot J18.9 PNEUMONIA, UNSPECIFIED ORGANISM 12/11/2015 LATIF DO, MEENU Mccord Ot J18.9 PNEUMONIA, UNSPECIFIED ORGANISM 12/20/2015 LATIF DO, MEENU Mccord Ot J18.9 PNEUMONIA, UNSPECIFIED ORGANISM 01/02/2016 LATIF DO, MEENU Mccord Ot J18.9 PNEUMONIA, UNSPECIFIED ORGANISM 03/04/2016 LATIF DO, MEENU Mccord Ot J18.9 PNEUMONIA, UNSPECIFIED ORGANISM 04/06/2016 Ot 724.3 SCIATICA 04/06/2016 Ot V45.4 ARTHRODESIS STATUS 04/06/2016 Ot 793.81 MAMMOGRAPHIC MICROCLACIFICATION 04/06/2016 Ot 786.7 ABNORMAL CHEST SOUNDS 04/06/2016 Ot 729.5 PAIN IN LIMB 04/06/2016 Ot 733.90 BONE CARTILAGE DIS NOS 04/06/2016 Ot 427.89 CARDIAC DYSRHYTHMIAS NEC 04/06/2016 Ot 793.81 MAMMOGRAPHIC MICROCLACIFICATION 04/06/2016 Ot 715.96 OSTEOARTHROS NOS-L/LEG 04/06/2016 Ot V57.1 PHYSICAL THERAPY NEC 04/06/2016 Ot V57.21 ENCOUNTER FOR OCCUPATIONAL THERAPY 04/06/2016 Ot V72.63 PRE- PROCEDURAL LABORATORY EXAMINATION 04/06/2016 Ot V72.81 EXAM-PRE- OPERATIVE CARDIOVASCULAR 04/06/2016 Ot V72.83 EXAM PRE- OPERATIVE NEC 04/06/2016 Ot V74.8 SCREEN- BACTERIAL DIS NEC 04/06/2016 Ot 793.81 MAMMOGRAPHIC MICROCLACIFICATION 04/06/2016 Ot 429.3 CARDIOMEGALY 04/06/2016 Ot 518.3 PULMONARY EOSINOPHILIA 04/06/2016 Ot 486 PNEUMONIA, ORGANISM NOS 04/06/2016 MEENU LATIF DO Ot 793.89 OTH (ABN) FINDINGS ON RADIOLOGICAL EXAMI 04/06/2016 MEENU LATIF DO Ot V76.12 OTH SCREEN MAMMO-MALIGN NEOPLASM OF [place]BERTO 04/06/2016 MEENU LATIF DO Ot 793.89 OTH (ABN) FINDINGS ON RADIOLOGICAL EXAMI 04/06/2016 MEENU LATIF DO Ot 737.30 IDIOPATHIC SCOLIOSIS 04/06/2016 MEENU LATIF DO Ot 783.21 LOSS OF WEIGHT 04/06/2016 MEENU LATIF DO Ot 787.91 DIARRHEA 04/06/2016 MEENU LATIF DO Ot 789.04 ABDOMINAL PAIN, LEFT LOWER QUADRANT 04/06/2016 MEENU LATIF DO Ot 793.6 NOSP (ABN) FINDINGS ON RADIOLOGICAL OT 04/06/2016 Ot 787.91 DIARRHEA 04/06/2016 YOLIS LATIF MULE RIDER Ot 733.00 OSTEOPOROSIS NOS 04/06/2016 YOLIS LATIF L MULE RIDER Ot V76.12 OTH SCREEN MAMMO-MALIGN NEOPLASM OF [place]ERT[place] 04/06/2016 MEENU LATIF DO Ot Z12.31 ENCNTR SCREEN MAMMOGRAM FOR MALIGNANT NE 04/06/2016 MEENU LATIF DO Ot J18.9 PNEUMONIA, UNSPECIFIED ORGANISM 04/06/2016 MEENU LATIF DO Ot J18.9 PNEUMONIA, UNSPECIFIED ORGANISM 04/06/2016 JOHN ABBOTT, BALTA Vergara Ot M23.8X1 OTHER INTERNAL DERANGEMENTS OF RIGHT KNE 04/06/2016 BALTA LOPEZ MD Ot Z01.812 ENCOUNTER FOR PREPROCEDURAL LABORATORY E 04/06/2016 BALTA LOPEZ MD Ot Z11.2 ENCOUNTER FOR SCREENING FOR OTHER BACTER 04/09/2016 BALTA LOPEZ MD Ot M23.8X1 OTHER INTERNAL DERANGEMENTS OF RIGHT KNE 04/09/2016 BALTA LOPEZ MD Ot Z01.812 ENCOUNTER FOR PREPROCEDURAL LABORATORY E 04/09/2016 BALTA LOPEZ MD Ot Z11.2 ENCOUNTER FOR SCREENING FOR OTHER BACTER 04/11/2016 Ot 787.91 DIARRHEA 04/11/2016 MEENU LATIF DO Ot J18.9 PNEUMONIA, UNSPECIFIED ORGANISM 04/11/2016 Ot 787.91 DIARRHEA 04/11/2016 MEENU LATIF DO, Ot J18.9 PNEUMONIA, UNSPECIFIED ORGANISM 04/11/2016 BALTA LOPEZ MD Ot I10 ESSENTIAL (PRIMARY) HYPERTENSION 04/11/2016 BALTA LOPEZ MD Ot M23.8X1 OTHER INTERNAL DERANGEMENTS OF RIGHT KNE 04/11/2016 BALTA LOPEZ MD Ot 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, RIGHT KNEE 04/12/2016 BALTA LOPEZ MD Ot M23.8X1 OTHER INTERNAL DERANGEMENTS OF RIGHT KNE 04/12/2016 BALTA LOPEZ MD Ot Z01.812 ENCOUNTER FOR PREPROCEDURAL LABORATORY E 04/12/2016 BALTA LOPEZ MD Ot Z11.2 ENCOUNTER FOR SCREENING FOR OTHER BACTER 06/27/2016 MEENU LATIF DO Ot M25.552 PAIN IN LEFT HIP 06/27/2016 MEENU LATIF DO Ot M25.552 PAIN IN LEFT HIP 08/09/2016 MEENU LATIF DO Ot M25.552 PAIN IN LEFT HIP 08/09/2016 MEENU LATIF DO Ot Z12.31 ENCNTR SCREEN MAMMOGRAM FOR MALIGNANT NE 08/09/2016 MEENU LATIF DO Ot Z12.31 ENCNTR SCREEN MAMMOGRAM FOR MALIGNANT NE 08/31/2016 MEENU LATIF DO Ot Z12.31 ENCNTR SCREEN MAMMOGRAM FOR MALIGNANT NE 10/06/2016 Sigrid Morel 715.13 OSTEOARTHROSIS, LOCALIZED, PRIMARY, INVOLVING FOREARM 10/06/2016 Sigrid Morel W 719.43 PAIN IN JOINT INVOLVING FOREARM 10/06/2016 BlainewilfridoShanya W 729.5 PAIN IN LIMB 10/06/2016 BlainewilfridoSigrid A M19.031 PRIMARY OSTEOARTHRITIS, RIGHT WRIST 10/06/2016 Sigrid Morel W M25.531 PAIN IN RIGHT WRIST 10/06/2016 Sigrid Morel W M79.641 PAIN IN RIGHT HAND 10/07/2016 Ot 787.91 DIARRHEA 10/07/2016 MEENU LATIF DO, Ot J18.9 PNEUMONIA, UNSPECIFIED ORGANISM 10/09/2016 MEENU LATIF DO, Ot A41.9 SEPSIS, UNSPECIFIED ORGANISM 10/09/2016 MEENU LATIF DO, Ot I10 ESSENTIAL (PRIMARY) HYPERTENSION 10/09/2016 MEENU LATIF DO, Ot L03.113 CELLULITIS OF RIGHT UPPER LIMB 10/09/2016 MEENU LATIF DO, Ot M00.9 PYOGENIC ARTHRITIS, UNSPECIFIED 10/09/2016 MEENU LATIF DO, Ot M25.431 EFFUSION, RIGHT WRIST 10/09/2016 MEENU LATIF DO, Ot M25.441 EFFUSION, RIGHT HAND 10/09/2016 MEENU LATIF DO, Ot M41.9 SCOLIOSIS, UNSPECIFIED 10/09/2016 MEENU LATIF DO, Ot M81.0 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 10/09/2016 MEENU LATIF DO, Ot R79.89 OTHER SPECIFIED ABNORMAL FINDINGS OF BLO 10/09/2016 MEENU LATIF DO, Ot R79.9 ABNORMAL FINDING OF BLOOD CHEMISTRY, UNS 10/09/2016 MEENU LATIF DO, Ot Z91.81 HISTORY OF FALLING 10/09/2016 MEENU LATIF DO, Ot Z96.641 PRESENCE OF RIGHT ARTIFICIAL HIP JOINT 10/09/2016 MEEUN LATIF DO, Ot Z96.652 PRESENCE OF LEFT ARTIFICIAL KNEE JOINT 02/24/2017 Ot 715.96 OSTEOARTHROS NOS-L/LEG 02/24/2017 Ot V57.1 PHYSICAL THERAPY NEC 02/24/2017 Ot V57.21 ENCOUNTER FOR OCCUPATIONAL THERAPY 02/24/2017 Ot V72.63 PRE- PROCEDURAL LABORATORY EXAMINATION 02/24/2017 Ot V72.81 EXAM-PRE- OPERATIVE CARDIOVASCULAR 02/24/2017 Ot V72.83 EXAM PRE- OPERATIVE NEC 02/24/2017 Ot V74.8 SCREEN- BACTERIAL DIS NEC 02/24/2017 Ot 793.81 MAMMOGRAPHIC MICROCLACIFICATION 02/24/2017 Ot 429.3 CARDIOMEGALY 02/24/2017 Ot 518.3 PULMONARY EOSINOPHILIA 02/24/2017 Ot 486 PNEUMONIA, ORGANISM NOS 02/24/2017 MEENU LATIF DO Ot 793.89 OTH (ABN) FINDINGS ON RADIOLOGICAL EXAMI 02/24/2017 MEENU LATIF DO Ot V76.12 OTH SCREEN MAMMO-MALIGN NEOPLASM OF [place]ERT[place] 02/24/2017 MEENU LATIF DO Ot 793.89 OTH (ABN) FINDINGS ON RADIOLOGICAL EXAMI 02/24/2017 MEENU LATIF DO Ot 737.30 IDIOPATHIC SCOLIOSIS 02/24/2017 MEENU LATIF DO Ot 783.21 LOSS OF WEIGHT 02/24/2017 MEENU LATIF DO Ot 787.91 DIARRHEA 02/24/2017 MEENU LATIF DO Ot 789.04 ABDOMINAL PAIN, LEFT LOWER QUADRANT 02/24/2017 MEENU LATIF DO Ot 793.6 NOSP (ABN) FINDINGS ON RADIOLOGICAL OT 02/24/2017 Ot 787.91 DIARRHEA 02/24/2017 YOLIS LATIF MULE RIDER Ot 733.00 OSTEOPOROSIS NOS 02/24/2017 YOLIS LATIF L MULE RIDER Ot V76.12 OTH SCREEN MAMMO-MALIGN NEOPLASM OF [place] 02/24/2017 MEENU LATIF DO Ot Z12.31 ENCNTR SCREEN MAMMOGRAM FOR MALIGNANT NE 02/24/2017 MEENU LATIF DO Ot J18.9 PNEUMONIA, UNSPECIFIED ORGANISM 02/24/2017 MEENU LATIF DO, Ot J18.9 PNEUMONIA, UNSPECIFIED ORGANISM 02/24/2017 MEENU LAITF DO Ot M25.552 PAIN IN LEFT HIP 02/24/2017 MEENU LATIF DO Ot Z12.31 ENCNTR SCREEN MAMMOGRAM FOR MALIGNANT NE 02/25/2017 WALESKA ABBOTT, JAJA Quezada Ot D72.829 ELEVATED WHITE BLOOD CELL COUNT, UNSPECI 02/25/2017 JAJA GALEANO MD Ot E86.0 DEHYDRATION 02/25/2017 JAJA GALEANO MD Ot E87.70 FLUID OVERLOAD, UNSPECIFIED 02/25/2017 JAJA GALEANO MD Ot F41.9 ANXIETY DISORDER, UNSPECIFIED 02/25/2017 JAJA GALEANO MD Ot I10 ESSENTIAL (PRIMARY) HYPERTENSION 02/25/2017 JAJA GALEANO MD Ot J90 PLEURAL EFFUSION, NOT ELSEWHERE CLASSIFI 02/25/2017 JAJA GALEANO MD Ot M19.91 PRIMARY OSTEOARTHRITIS, UNSPECIFIED SITE 02/25/2017 JAJA GALEANO MD Ot M25.552 PAIN IN LEFT HIP 02/25/2017 JAJA GALEANO MD Ot M25.561 PAIN IN RIGHT KNEE 02/25/2017 JAJA GALEANO MD Ot M41.9 SCOLIOSIS, UNSPECIFIED 02/25/2017 JAJA GALEANO MD, Ot M54.9 DORSALGIA, UNSPECIFIED 02/25/2017 JAJA GALEANO MD Ot M81.0 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 02/25/2017 JAJA GALEANO MD Ot R05 COUGH 02/25/2017 JAJA GALEANO MD Ot R50.9 FEVER, UNSPECIFIED 02/25/2017 JAJA GALEANO MD Ot R51 HEADACHE 02/25/2017 JAJA GALEANO MD Ot R63.4 ABNORMAL WEIGHT LOSS 02/25/2017 JAJA GALEANO MD Ot R91.8 OTHER NONSPECIFIC ABNORMAL FINDING OF [place] 02/25/2017 JAJA GALEANO MD Ot S00.11XA CONTUSION OF RIGHT EYELID AND PERIOCULAR 02/25/2017 JAJA GALEANO MD Ot T79.6XXA TRAUMATIC ISCHEMIA OF MUSCLE, INITIAL EN 02/25/2017 JAJA GALEANO MD Ot W06.XXXA FALL FROM BED, INITIAL ENCOUNTER 02/25/2017 JAJA GALEANO MD Ot Y92.003 [facility] OF [email or web address] NON-INSTITUT (PRIVATE) R 02/25/2017 JAJA GALEANO MD Ot Z96.641 PRESENCE OF RIGHT ARTIFICIAL HIP JOINT 02/25/2017 JAJA GALEANO MD Ot Z96.652 PRESENCE OF LEFT ARTIFICIAL KNEE JOINT 08/30/2017 MEENU LATIF DO Ot Z12.31 ENCNTR SCREEN MAMMOGRAM FOR MALIGNANT NE Procedures Code Description Performed By Performed On 81.54 TOTAL KNEE REPLACEMENT 12/19/2011 33.24 ENDOSCOPIC BRONCHIAL BX 01/03/2012 96.04 INSERT ENDOTRACHEAL TUBE 01/06/2012 96.71 CONTINUOUS INVASIVE MECHANICAL VENTILATI 01/06/2012 Results Test Result Range Whole blood basic metabolic panel - 04/06/16 14:10 Serum or plasma sodium measurement (moles/volume) 143 mmol/L 135-145 Serum or plasma potassium measurement (moles/volume) 4.3 mmol/L 3.6-5.0 Serum or plasma chloride measurement (moles/volume) 107 mmol/L 98-107 Carbon dioxide 24 mmol/L 21-32 Serum or plasma anion gap determination (moles/volume) 12 mmol/L 5-14 Serum or plasma urea nitrogen measurement (mass/volume) 29 mg/dL 7-18 Serum or plasma creatinine measurement (mass/volume) 1.28 mg/dL 0.60-1.30 Serum or plasma urea nitrogen/creatinine mass ratio 23 NRG Serum or plasma creatinine measurement with calculation of estimated glomerular filtration rate 40 NRG Serum or plasma glucose measurement (mass/volume) 113 mg/dL 70-105 Serum or plasma calcium measurement (mass/volume) 9.1 mg/dL 8.5-10.1 Methicillin resistant Staphylococcus aureus (MRSA) screening culture - 14:10 Methicillin resistant Staphylococcus aureus (MRSA) screening culture NEG NRG Sed Rate - 10/06/16 13:45 Sed Rate 10 mm/hr 9-15 Complete blood count (CBC) with automated white blood cell (WBC) differential - 10/07/16 12:10 Blood leukocytes automated count (number/volume) 14.5 10*3/uL 4.3-11.0 Blood erythrocytes automated count (number/volume) 4.12 10*6/uL 4.35-5.85 Venous blood hemoglobin measurement (mass/volume) 12.9 g/dL 11.5-16.0 Blood hematocrit (volume fraction) 39 % 35-52 Automated erythrocyte mean corpuscular volume 96 [foz_us] 80-99 Automated erythrocyte mean corpuscular hemoglobin (mass per erythrocyte) 31 pg 25-34 Automated erythrocyte mean corpuscular hemoglobin concentration measurement ( mass/volume) 33 g/dL 32-36 Automated erythrocyte distribution width ratio 14.0 % 10.0-14.5 Automated blood platelet count (count/volume) 155 10*3/uL 130-400 Automated blood platelet mean volume measurement 10.2 [foz_us] 7.4-10.4 Automated blood neutrophils/100 leukocytes 80 % 42-75 Automated blood lymphocytes/100 leukocytes 13 % 12-44 Blood monocytes/100 leukocytes 7 % 0-12 Automated blood eosinophils/100 leukocytes 0 % 0-10 Automated blood basophils/100 leukocytes 0 % 0-10 Blood neutrophils automated count (number/volume) 11.6 10*3 1.8-7.8 Blood lymphocytes automated count (number/volume) 1.9 10*3 1.0-4.0 Blood monocytes automated count (number/volume) 1.0 10*3 0.0-1.0 Automated eosinophil count 0.1 10*3/uL 0.0-0.3 Automated blood basophil count (count/volume) 0.0 10*3/uL 0.0-0.1 Blood manual differential performed detection - 10/07/16 12:10 Blood monocytes/100 leukocytes 15 % NRG Manual blood segmented neutrophils/100 leukocytes 77 % NRG Blood band neutrophils/100 leukocytes 1 % NRG Manual blood lymphocytes/100 leukocytes 7 % NRG Blood erythrocyte morphology finding identification NORMAL NRG Blood toxic granules detection by light microscopy 1+ NRG PT panel in platelet poor plasma by coagulation assay - 10/07/16 12:10 Prothrombin time (PT) in platelet poor plasma by coagulation assay 14.7 s 12.2-14.7 INR in platelet poor plasma or blood by coagulation assay 1.2 0.8-1.4 Activated partial thromboplastin time (aPTT) in platelet poor plasma bycoagulation assay - 10/07/16 12:10 Activated partial thromboplastin time (aPTT) in platelet poor plasma bycoagulation assay 35 s 24-35 Complete urinalysis with reflex to culture - 10/07/16 12:10 Urine color determination YELLOW NRG Urine clarity determination CLEAR NRG Urine pH measurement by test strip 7 5-9 Specific gravity of urine by test strip 1.010 1.016- 1.022 Urine protein assay by test strip, semi-quantitative NEGATIVE NEGATIVE Urine glucose detection by automated test strip NEGATIVE NEGATIVE Erythrocytes detection in urine sediment by light microscopy 1+ NEGATIVE Urine ketones detection by automated test strip 2+ NEGATIVE Urine nitrite detection by test strip NEGATIVE NEGATIVE Urine total bilirubin detection by test strip NEGATIVE NEGATIVE Urine urobilinogen measurement by automated test strip (mass/volume) NORMAL NORMAL Urine leukocyte esterase detection by dipstick NEGATIVE NEGATIVE Automated urine sediment erythrocyte count by microscopy (number/high power field) [HPF] NRG Automated urine sediment leukocyte count by microscopy (number/high power field ) NONE NRG Bacteria detection in urine sediment by light microscopy TRACE NRG Crystals detection in urine sediment by light microscopy NONE NRG Casts detection in urine sediment by light microscopy NONE NRG Mucus detection in urine sediment by light microscopy NEGATIVE NRG Complete urinalysis with reflex to culture NO NRG Comprehensive metabolic panel - 10/07/16 12:10 Serum or plasma sodium measurement (moles/volume) 140 mmol/L 135-145 Serum or plasma potassium measurement (moles/volume) 4.3 mmol/L 3.6-5.0 Serum or plasma chloride measurement (moles/volume) 104 mmol/L 98-107 Carbon dioxide 26 mmol/L 21-32 Serum or plasma anion gap determination (moles/volume) 10 mmol/L 5-14 Serum or plasma urea nitrogen measurement (mass/volume) 24 mg/dL 7-18 Serum or plasma creatinine measurement (mass/volume) 0.96 mg/dL 0.60-1.30 Serum or plasma urea nitrogen/creatinine mass ratio 25 NRG Serum or plasma creatinine measurement with calculation of estimated glomerular filtration rate 55 NRG Serum or plasma glucose measurement (mass/volume) 89 mg/dL 70-105 Serum or plasma calcium measurement (mass/volume) 8.5 mg/dL 8.5-10.1 Serum or plasma total bilirubin measurement (mass/volume) 1.1 mg/dL 0.1-1.0 Serum or plasma alkaline phosphatase measurement (enzymatic activity/volume) 42 U/L 40-136 Serum or plasma aspartate aminotransferase measurement (enzymatic activity/ volume) 20 U/L 5-34 Serum or plasma alanine aminotransferase measurement (enzymatic activity/volume ) 13 U/L 0-55 Serum or plasma protein measurement (mass/volume) 6.6 g/dL 6.4-8.2 Serum or plasma albumin measurement (mass/volume) 3.4 g/dL 3.2-4.5 Serum or plasma uric acid measurement (mass/volume) - 10/07/16 12:10 Serum or plasma uric acid measurement (mass/volume) 5.9 mg/dL 2.6-7.2 Serum or plasma C reactive protein measurement (mass/volume) - 10/07/16 12:10 Serum or plasma C reactive protein measurement (mass/volume) 3.45 mg /dL 0.00-0.50 Erythrocyte sedimentation rate by westergren method - 10/07/16 12:10 Erythrocyte sedimentation rate by westergren method 17 mm 0-30 Influenza virus A and B antigen detection - 10/07/16 12:10 FLU RESULT NEGATIVE FOR INFLUENZA A AND B ANTIGENS BY IA [facility] Bacterial blood culture - 10/07/16 12:10 Bacterial blood culture [facility] Blood lactic acid measurement (moles/volume) - 10/07/16 12:30 Blood lactic acid measurement (moles/volume) 0.8 mmol/L 0.5-2.0 Bacterial blood culture - 10/07/16 12:30 Bacterial blood culture [facility] Serum or plasma lithium measurement (moles/volume) - 10/07/16 13:00 BNP level 772.3 pg/mL <100.0 Gram stain microscopy - 10/07/16 16:28 GRAM STAIN RESULT FEW WBC'S, NO BACTERIA OBSERVED [facility] Bacteria identification in wound by culture - 10/07/16 16:28 Bacteria identification in wound by culture [facility] Bacteria identification in isolate by anaerobe culture - 10/07/16 16:28 Bacteria identification in isolate by anaerobe culture [facility] Complete blood count (CBC) with automated white blood cell (WBC) differential - 10/08/16 04:22 Blood leukocytes automated count (number/volume) 8.4 10*3/uL 4.3-11.0 Blood erythrocytes automated count (number/volume) 4.47 10*6/uL 4.35-5.85 Venous blood hemoglobin measurement (mass/volume) 13.8 g/dL 11.5-16.0 Blood hematocrit (volume fraction) 42 % 35-52 Automated erythrocyte mean corpuscular volume 94 [foz_us] 80-99 Automated erythrocyte mean corpuscular hemoglobin (mass per erythrocyte) 31 pg 25-34 Automated erythrocyte mean corpuscular hemoglobin concentration measurement ( mass/volume) 33 g/dL 32-36 Automated erythrocyte distribution width ratio 14.0 % 10.0-14.5 Automated blood platelet count (count/volume) 158 10*3/uL 130-400 Automated blood platelet mean volume measurement 10.6 [foz_us] 7.4-10.4 Automated blood neutrophils/100 leukocytes 85 % 42-75 Automated blood lymphocytes/100 leukocytes 14 % 12-44 Blood monocytes/100 leukocytes 1 % 0-12 Automated blood eosinophils/100 leukocytes 0 % 0-10 Automated blood basophils/100 leukocytes 0 % 0-10 Blood neutrophils automated count (number/volume) 7.2 10*3 1.8-7.8 Blood lymphocytes automated count (number/volume) 1.1 10*3 1.0-4.0 Blood monocytes automated count (number/volume) 0.1 10*3 0.0-1.0 Automated eosinophil count 0.0 10*3/uL 0.0-0.3 Automated blood basophil count (count/volume) 0.0 10*3/uL 0.0-0.1 Whole blood basic metabolic panel - 10/08/16 04:22 Serum or plasma sodium measurement (moles/volume) 138 mmol/L 135-145 Serum or plasma potassium measurement (moles/volume) 4.2 mmol/L 3.6-5.0 Serum or plasma chloride measurement (moles/volume) 104 mmol/L 98-107 Carbon dioxide 22 mmol/L 21-32 Serum or plasma anion gap determination (moles/volume) 12 mmol/L 5-14 Serum or plasma urea nitrogen measurement (mass/volume) 25 mg/dL 7-18 Serum or plasma creatinine measurement (mass/volume) 1.04 mg/dL 0.60-1.30 Serum or plasma urea nitrogen/creatinine mass ratio 24 NRG Serum or plasma creatinine measurement with calculation of estimated glomerular filtration rate 50 NRG Serum or plasma glucose measurement (mass/volume) 157 mg/dL 70-105 Serum or plasma calcium measurement (mass/volume) 8.8 mg/dL 8.5-10.1 Serum or plasma lithium measurement (moles/volume) - 10/08/16 04:22 BNP level 668.3 pg/mL <100.0 Serum or plasma C reactive protein measurement (mass/volume) - 10/08/16 08:38 Serum or plasma C reactive protein measurement (mass/volume) 9.53 mg /dL 0.00-0.50 Erythrocyte sedimentation rate by westergren method - 10/08/16 08:38 Erythrocyte sedimentation rate by westergren method 23 mm 0-30 Complete blood count (CBC) with automated white blood cell (WBC) differential - 10/09/16 06:35 Blood leukocytes automated count (number/volume) 13.0 10*3/uL 4.3-11.0 Blood erythrocytes automated count (number/volume) 4.03 10*6/uL 4.35-5.85 Venous blood hemoglobin measurement (mass/volume) 12.6 g/dL 11.5-16.0 Blood hematocrit (volume fraction) 38 % 35-52 Automated erythrocyte mean corpuscular volume 94 [foz_us] 80-99 Automated erythrocyte mean corpuscular hemoglobin (mass per erythrocyte) 31 pg 25-34 Automated erythrocyte mean corpuscular hemoglobin concentration measurement ( mass/volume) 33 g/dL 32-36 Automated erythrocyte distribution width ratio 14.2 % 10.0-14.5 Automated blood platelet count (count/volume) 176 10*3/uL 130-400 Automated blood platelet mean volume measurement 10.1 [foz_us] 7.4-10.4 Automated blood neutrophils/100 leukocytes 80 % 42-75 Automated blood lymphocytes/100 leukocytes 13 % 12-44 Blood monocytes/100 leukocytes 7 % 0-12 Automated blood eosinophils/100 leukocytes 0 % 0-10 Automated blood basophils/100 leukocytes 0 % 0-10 Blood neutrophils automated count (number/volume) 10.4 10*3 1.8-7.8 Blood lymphocytes automated count (number/volume) 1.7 10*3 1.0-4.0 Blood monocytes automated count (number/volume) 0.9 10*3 0.0-1.0 Automated eosinophil count 0.0 10*3/uL 0.0-0.3 Automated blood basophil count (count/volume) 0.0 10*3/uL 0.0-0.1 Comprehensive metabolic panel - 10/09/16 06:35 Serum or plasma sodium measurement (moles/volume) 139 mmol/L 135-145 Serum or plasma potassium measurement (moles/volume) 4.5 mmol/L 3.6-5.0 Serum or plasma chloride measurement (moles/volume) 107 mmol/L 98-107 Carbon dioxide 22 mmol/L 21-32 Serum or plasma anion gap determination (moles/volume) 10 mmol/L 5-14 Serum or plasma urea nitrogen measurement (mass/volume) 20 mg/dL 7-18 Serum or plasma creatinine measurement (mass/volume) 0.95 mg/dL 0.60-1.30 Serum or plasma urea nitrogen/creatinine mass ratio 21 NRG Serum or plasma creatinine measurement with calculation of estimated glomerular filtration rate 56 NRG Serum or plasma glucose measurement (mass/volume) 118 mg/dL 70-105 Serum or plasma calcium measurement (mass/volume) 8.6 mg/dL 8.5-10.1 Serum or plasma total bilirubin measurement (mass/volume) 0.9 mg/dL 0.1-1.0 Serum or plasma alkaline phosphatase measurement (enzymatic activity/volume) 36 U/L 40-136 Serum or plasma aspartate aminotransferase measurement (enzymatic activity/ volume) 17 U/L 5-34 Serum or plasma alanine aminotransferase measurement (enzymatic activity/volume ) 13 U/L 0-55 Serum or plasma protein measurement (mass/volume) 6.6 g/dL 6.4-8.2 Serum or plasma albumin measurement (mass/volume) 3.4 g/dL 3.2-4.5 Capillary blood glucose measurement by glucometer (mass/volume) - 10/09/16 10: 51 Capillary blood glucose measurement by glucometer (mass/volume) 101 mg/dL 70-110 Complete blood count (CBC) with automated white blood cell (WBC) differential - 02/23/17 19:37 Blood leukocytes automated count (number/volume) 15.9 10*3/uL 4.3-11.0 Blood erythrocytes automated count (number/volume) 4.43 10*6/uL 4.35-5.85 Venous blood hemoglobin measurement (mass/volume) 13.4 g/dL 11.5-16.0 Blood hematocrit (volume fraction) 41 % 35-52 Automated erythrocyte mean corpuscular volume 93 [foz_us] 80-99 Automated erythrocyte mean corpuscular hemoglobin (mass per erythrocyte) 30 pg 25-34 Automated erythrocyte mean corpuscular hemoglobin concentration measurement ( mass/volume) 33 g/dL 32-36 Automated erythrocyte distribution width ratio 14.9 % 10.0-14.5 Automated blood platelet count (count/volume) 159 10*3/uL 130-400 Automated blood platelet mean volume measurement 10.2 [foz_us] 7.4-10.4 Automated blood neutrophils/100 leukocytes 86 % 42-75 Automated blood lymphocytes/100 leukocytes 5 % 12-44 Blood monocytes/100 leukocytes 9 % 0-12 Automated blood eosinophils/100 leukocytes 0 % 0-10 Automated blood basophils/100 leukocytes 0 % 0-10 Blood neutrophils automated count (number/volume) 13.7 10*3 1.8-7.8 Blood lymphocytes automated count (number/volume) 0.8 10*3 1.0-4.0 Blood monocytes automated count (number/volume) 1.4 10*3 0.0-1.0 Automated eosinophil count 0.0 10*3/uL 0.0-0.3 Automated blood basophil count (count/volume) 0.0 10*3/uL 0.0-0.1 PT panel in platelet poor plasma by coagulation assay - 02/23/17 19:37 Prothrombin time (PT) in platelet poor plasma by coagulation assay 14.1 s 12.2-14.7 INR in platelet poor plasma or blood by coagulation assay 1.1 0.8-1.4 Activated partial thromboplastin time (aPTT) in platelet poor plasma bycoagulation assay - 02/23/17 19:37 Activated partial thromboplastin time (aPTT) in platelet poor plasma bycoagulation assay 28 s 24-35 Blood lactic acid measurement (moles/volume) - 02/23/17 19:37 Blood lactic acid measurement (moles/volume) 1.37 mmol/L 0.50-2.00 Blood manual differential performed detection - 02/23/17 19:37 Blood monocytes/100 leukocytes 4 % NRG Manual blood segmented neutrophils/100 leukocytes 85 % NRG Blood band neutrophils/100 leukocytes 2 % NRG Manual blood lymphocytes/100 leukocytes 9 % NRG Manual eosinophils/100 leukocytes in nose 0 % NRG Manual blood basophils/100 leukocytes 0 % NRG Blood erythrocyte morphology finding identification NORMAL [facility] Comprehensive metabolic panel - 02/23/17 19:37 Serum or plasma sodium measurement (moles/volume) 139 mmol/L 135-145 Serum or plasma potassium measurement (moles/volume) 3.9 mmol/L 3.6-5.0 Serum or plasma chloride measurement (moles/volume) 101 mmol/L 98-107 Carbon dioxide 26 mmol/L 21-32 Serum or plasma anion gap determination (moles/volume) 12 mmol/L 5-14 Serum or plasma urea nitrogen measurement (mass/volume) 18 mg/dL 7-18 Serum or plasma creatinine measurement (mass/volume) 1.02 mg/dL 0.60-1.30 Serum or plasma urea nitrogen/creatinine mass ratio 18 NRG Serum or plasma creatinine measurement with calculation of estimated glomerular filtration rate 51 NRG Serum or plasma glucose measurement (mass/volume) 131 mg/dL 70-105 Serum or plasma calcium measurement (mass/volume) 9.3 mg/dL 8.5-10.1 Serum or plasma total bilirubin measurement (mass/volume) 1.3 mg/dL 0.1-1.0 Serum or plasma alkaline phosphatase measurement (enzymatic activity/volume) 50 U/L 40-136 Serum or plasma aspartate aminotransferase measurement (enzymatic activity/ volume) 22 U/L 5-34 Serum or plasma alanine aminotransferase measurement (enzymatic activity/volume ) 15 U/L 0-55 Serum or plasma protein measurement (mass/volume) 7.9 g/dL 6.4-8.2 Serum or plasma albumin measurement (mass/volume) 3.8 g/dL 3.2-4.5 Serum or plasma creatine kinase measurement (enzymatic activity/volume) - 02/23 19:37 Serum or plasma creatine kinase measurement (enzymatic activity/volume) 168 U/L 29-168 Serum or plasma C reactive protein measurement (mass/volume) - 02/23/17 19:37 Serum or plasma C reactive protein measurement (mass/volume) 1.53 mg /dL 0.00-0.50 Bacterial blood culture - 02/23/17 19:37 Bacterial blood culture NG NRG Complete urinalysis with reflex to culture - 02/23/17 20:05 Urine color determination YELLOW NRG Urine clarity determination CLEAR NRG Urine pH measurement by test strip 8 5-9 Specific gravity of urine by test strip 1.010 1.016- 1.022 Urine protein assay by test strip, semi-quantitative 2+ NEGATIVE Urine glucose detection by automated test strip NEGATIVE NEGATIVE Erythrocytes detection in urine sediment by light microscopy 3+ NEGATIVE Urine ketones detection by automated test strip 2+ NEGATIVE Urine nitrite detection by test strip NEGATIVE NEGATIVE Urine total bilirubin detection by test strip NEGATIVE NEGATIVE Urine urobilinogen measurement by automated test strip (mass/volume) NORMAL NORMAL Urine leukocyte esterase detection by dipstick NEGATIVE NEGATIVE Automated urine sediment erythrocyte count by microscopy (number/high power field) [HPF] NRG Automated urine sediment leukocyte count by microscopy (number/high power field ) RARE NRG Bacteria detection in urine sediment by light microscopy NEGATIVE NRG Squamous epithelial cells detection in urine sediment by light microscopy 0-2 NRG Crystals detection in urine sediment by light microscopy NONE NRG Casts detection in urine sediment by light microscopy NONE NRG Mucus detection in urine sediment by light microscopy NEGATIVE NRG Complete urinalysis with reflex to culture NO NRG Bacterial blood culture - 02/23/17 20:12 Bacterial blood culture NG NRG Complete blood count (CBC) with automated white blood cell (WBC) differential - 02/24/17 04:26 Blood leukocytes automated count (number/volume) 16.4 10*3/uL 4.3-11.0 Blood erythrocytes automated count (number/volume) 3.89 10*6/uL 4.35-5.85 Venous blood hemoglobin measurement (mass/volume) 11.7 g/dL 11.5-16.0 Blood hematocrit (volume fraction) 37 % 35-52 Automated erythrocyte mean corpuscular volume 94 [foz_us] 80-99 Automated erythrocyte mean corpuscular hemoglobin (mass per erythrocyte) 30 pg 25-34 Automated erythrocyte mean corpuscular hemoglobin concentration measurement ( mass/volume) 32 g/dL 32-36 Automated erythrocyte distribution width ratio 14.9 % 10.0-14.5 Automated blood platelet count (count/volume) 133 10*3/uL 130-400 Automated blood platelet mean volume measurement 9.9 [foz_us] 7.4-10.4 Automated blood neutrophils/100 leukocytes 76 % 42-75 Automated blood lymphocytes/100 leukocytes 16 % 12-44 Blood monocytes/100 leukocytes 8 % 0-12 Automated blood eosinophils/100 leukocytes 0 % 0-10 Automated blood basophils/100 leukocytes 0 % 0-10 Blood neutrophils automated count (number/volume) 12.4 10*3 1.8-7.8 Blood lymphocytes automated count (number/volume) 2.6 10*3 1.0-4.0 Blood monocytes automated count (number/volume) 1.4 10*3 0.0-1.0 Automated eosinophil count 0.0 10*3/uL 0.0-0.3 Automated blood basophil count (count/volume) 0.0 10*3/uL 0.0-0.1 Whole blood basic metabolic panel - 02/24/17 04:26 Serum or plasma sodium measurement (moles/volume) 141 mmol/L 135-145 Serum or plasma potassium measurement (moles/volume) 4.0 mmol/L 3.6-5.0 Serum or plasma chloride measurement (moles/volume) 107 mmol/L 98-107 Carbon dioxide 26 mmol/L 21-32 Serum or plasma anion gap determination (moles/volume) 8 mmol/L 5-14 Serum or plasma urea nitrogen measurement (mass/volume) 18 mg/dL 7-18 Serum or plasma creatinine measurement (mass/volume) 0.84 mg/dL 0.60-1.30 Serum or plasma urea nitrogen/creatinine mass ratio 21 NRG Serum or plasma creatinine measurement with calculation of estimated glomerular filtration rate > NRG Serum or plasma glucose measurement (mass/volume) 97 mg/dL 70-105 Serum or plasma calcium measurement (mass/volume) 8.3 mg/dL 8.5-10.1 Serum or plasma C reactive protein measurement (mass/volume) - 02/24/17 04:26 Serum or plasma C reactive protein measurement (mass/volume) 6.23 mg /dL 0.00-0.50 Serum or plasma creatine kinase measurement (enzymatic activity/volume) - 02/24 12:40 Serum or plasma creatine kinase measurement (enzymatic activity/volume) 1187 U/L 29-168 Serum or plasma lithium measurement (moles/volume) - 02/24/17 12:40 BNP level 1148.7 pg/mL <100.0 Serum or plasma troponin i.cardiac measurement (mass/volume) - 02/24/17 12:40 Serum or plasma troponin i.cardiac measurement (mass/volume) < ng/ mL <0.30 Automated blood complete blood count (hemogram) panel - 02/25/17 04:17 Blood leukocytes automated count (number/volume) 13.1 10*3/uL 4.3-11.0 Blood erythrocytes automated count (number/volume) 3.85 10*6/uL 4.35-5.85 Venous blood hemoglobin measurement (mass/volume) 11.6 g/dL 11.5-16.0 Blood hematocrit (volume fraction) 36 % 35-52 Automated erythrocyte mean corpuscular volume 94 [foz_us] 80-99 Automated erythrocyte mean corpuscular hemoglobin (mass per erythrocyte) 30 pg 25-34 Automated erythrocyte mean corpuscular hemoglobin concentration measurement ( mass/volume) 32 g/dL 32-36 Automated erythrocyte distribution width ratio 14.9 % 10.0-14.5 Automated blood platelet count (count/volume) 148 10*3/uL 130-400 Automated blood platelet mean volume measurement 10.6 [foz_us] 7.4-10.4 Whole blood basic metabolic panel - 02/25/17 04:17 Serum or plasma sodium measurement (moles/volume) 142 mmol/L 135-145 Serum or plasma potassium measurement (moles/volume) 3.6 mmol/L 3.6-5.0 Serum or plasma chloride measurement (moles/volume) 108 mmol/L 98-107 Carbon dioxide 23 mmol/L 21-32 Serum or plasma anion gap determination (moles/volume) 11 mmol/L 5-14 Serum or plasma urea nitrogen measurement (mass/volume) 14 mg/dL 7-18 Serum or plasma creatinine measurement (mass/volume) 0.85 mg/dL 0.60-1.30 Serum or plasma urea nitrogen/creatinine mass ratio 16 NRG Serum or plasma creatinine measurement with calculation of estimated glomerular filtration rate > NRG Serum or plasma glucose measurement (mass/volume) 97 mg/dL 70-105 Serum or plasma calcium measurement (mass/volume) 8.3 mg/dL 8.5-10.1 Serum or plasma creatine kinase measurement (enzymatic activity/volume) - 02/25 04:17 Serum or plasma creatine kinase measurement (enzymatic activity/volume) 756 U/L 29-168 Serum or plasma lithium measurement (moles/volume) - 02/25/17 04:17 BNP level 786.8 pg/mL <100.0 Encounters ACCT No. Visit Date/Time Discharge Status Pt. Type Provider Facility Loc./Unit Complaint [id number] 08/09/2017 09:53:00 08/09/2017 23:59:59 CLS Outpatient MEENU LATIF DO [facility] RAD SCREENING [id number] 02/24/2017 12:41:00 02/25/2017 10:43:00 DIS Inpatient JAJA GAELANO MD [facility] 4TH FEVER, FALL FROM SAME LEVEL [id number] 10/07/2016 14:50:00 10/09/2016 12:45:00 DIS Inpatient MEENU LATIF DO [facility] 4TH SEPTIC ARTHRITIS R THUMB,FLUCTUATED BNP [id number] 08/08/2016 09:47:00 08/08/2016 23:59:59 CLS Outpatient SALOMON FREIRE MEENU Flex [facility] RAD SCREENING [id number] 06/26/2016 13:42:00 06/26/2016 23:59:59 CLS Outpatient SALOMON FREIRE MEENU Flex [facility] RAD TRAUMA [id number] 04/11/2016 08:39:00 04/11/2016 14:15:00 DIS [facility]EN[facility]OM[facility] [id number] 04/06/2016 13:32:00 04/06/2016 14:15:00 DIS Outpatient BALTA LOPEZ MD [facility] PREOP RIGHT KNEE TORN LATERAL MENISCUS [id number] 03/05/2016 00:08:00 03/05/2016 23:59:59 CLS Preadmit MEENU LATIF DO [facility] 4TH RCR PNEUMONIA [id number] 12/11/2015 12:35:00 03/04/2016 00:01:00 DIS Outpatient MEENU LATIF DO [facility] 4TH RCR PNEUMONIA [id number] 11/30/2015 16:52:00 11/30/2015 23:59:59 CLS Outpatient SALOMON FREIRE MEENU Flex [facility] RAD PNEUMONIA [id number] 08/01/2015 10:46:00 08/01/2015 23:59:59 CLS Outpatient SALOMON FREIRE MEENU Flex [facility] RAD SCREENING [id number] 05/23/2015 20:39:00 05/23/2015 23:25:00 DIS Emergency DAVID LUCAS DO [facility] ER NECK PAIN [id number] 01/21/2015 10:28:00 01/21/2015 12:00:00 DIS Outpatient BALTA MORTON MD [facility] WOUNDCARE [id number] 07/29/2014 10:29:00 07/29/2014 23:59:59 CLS Outpatient YOLIS LATIF [facility] RAD SCREENING, OSTEOPOROSIS [id number] 01/08/2014 13:00:00 04/07/2014 00:01:00 DIS Outpatient MEENU LATIF DO [facility] LAB DIARRHEA [id number] 01/07/2014 13:46:00 01/07/2014 23:59:59 CLS Outpatient MEENU LATIF DO [facility] RAD DIARRHEA,LLQ PAIN, WEIGHT LOSS [id number] 07/22/2013 14:22:00 07/22/2013 23:59:59 CLS Outpatient MEENU LATIF DO [facility] RAD ABN MAMMO [id number] 06/29/2013 11:10:00 06/29/2013 23:59:59 CLS Outpatient MEENU LATIF DO [facility] RAD SCREENING [id number] 07/29/2014 10:31:00 Document Registration [id number] 04/08/2014 00:00:00 Document Registration [id number] 07/02/2012 14:31:00 Document Registration [id number] 06/16/2012 09:31:00 Document Registration [id number] 06/09/2012 14:28:00 Document Registration [id number] 05/14/2012 13:40:00 Document Registration [id number] 12/31/2011 17:16:00 Document Registration [id number] 12/19/2011 05:43:00 Document Registration [id number] 12/12/2011 10:16:00 Document Registration [id number] 07/31/2011 14:47:00 Document Registration [id number] 06/08/2011 10:05:00 Document Registration [id number] 05/02/2011 11:54:00 Document Registration [id number] 04/27/2011 12:12:00 Document Registration [id number] 10/25/2010 09:16:00 Document Registration [id number] 10/20/2010 09:26:00 Document Registration [id number] 08/14/2010 16:50:00 Document Registration [id number] 05/03/2010 10:35:00 Document Registration [id number] 05/03/2010 09:24:00 Document Registration [id number] 04/27/2010 05:52:00 Document Registration [id number] 04/20/2010 15:29:00 Document Registration [id number] 01/26/2010 06:06:00 Document Registration [id number] 01/17/2010 09:26:00 Document Registration [id number] 10/17/2009 13:13:00 Document Registration [id number] 07/04/2009 13:06:00 Document Registration [id number] 06/13/2009 10:08:00 Document Registration [id number] 05/02/2009 08:00:00 Document Registration [id number] 10/06/2016 13:30:00 10/06/2016 14:28:00 DIS Outpatient [facility] ER [id number] 05/23/2015 20:40:00 ACT Document Registration
[2018-01-07 18:31] LABS: BASOPHILS % (AUTO) 0 % (0-10); EOSINOPHILS # (AUTO) 0.5 10^3/uL (0.0-0.3); EOSINOPHILS % (AUTO) 4 % (0-10); HEMATOCRIT 42 % (35-52); LYMPHOCYTES # (AUTO) 2.4 X 10^3 (1.0-4.0); LYMPHOCYTES % (AUTO) 22 % (12-44); MEAN CORPUSCULAR HEMOGLOBIN 31 PG (25-34); MEAN CORPUSCULAR HGB CONC 34 G/DL (32-36); MEAN CORPUSCULAR VOLUME 94 FL (80-99); MEAN PLATELET VOLUME 9.8 FL (7.4-10.4); MONOCYTES # (AUTO) 1.3 X 10^3 (0.0-1.0); MONOCYTES % (AUTO) 12 % (0-12); NEUTROPHILS # (AUTO) 6.5 X 10^3 (1.8-7.8); NEUTROPHILS % (AUTO) 61 % (42-75); PLATELET COUNT 196 10^3/uL (130-400); RED BLOOD COUNT 4.47 10^6/uL (4.35-5.85); RED CELL DISTRIBUTION WIDTH 13.9 % (10.0-14.5); WHITE BLOOD COUNT 10.6 10^3/uL (4.3-11.0)
[2018-01-07 18:48] LABS: ALBUMIN 3.9 GM/DL (3.2-4.5); CREATININE SERUM 0.97 MG/DL (0.60-1.30); POTASSIUM 4.4 MMOL/L (3.6-5.0); TOTAL PROTEIN 8.8 GM/DL (6.4-8.2)
--- NOTE | 2018-01-07 18:50 | ED Cough/URI ---
General Chief Complaint: Respiratory Problems Stated Complaint: COUGH;CHEST PAIN WHEN BREATHING Nursing Triage Note: Pt reports SOA and R sided pain x5-6 days worse when taking a deep breath Source: patient Exam Limitations: no limitations History of Present Illness Date Seen by Provider: January 07, 2018 Time Seen by Provider: 17:50 Initial Comments Brought to ER by her daughter with reports of right-sided chest pain with breathing. Began 5-6 days ago and she has had a cough. 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 No fevers. Timing/Duration: getting worse Severity/Quality: moderate Associated Symptoms: cough, other (She denies any shortness of breath but states that she is not taking a deep breath because it is painful to do so) Allergies and Home Medications Allergies Coded Allergies: No Known Drug Allergies (Unverified , 10/07/16) Home Medications Alendronate Sodium 70 Mg Tablet, 70 MG PO Mo, (Reported) Amlodipine Besylate 5 Mg Tablet, 5 MG PO DAILY, (Reported) Ascorbate Calcium/Bioflavonoid 1 Each Tablet, 500 MG PO HS, (Reported) Atenolol 50 Mg Tablet, 50 MG PO DAILY, (Reported) Calcium Carbonate/Vitamin D3 1 Each Tablet, 1 TAB PO HS, (Reported) Cefuroxime Axetil 250 Mg Tablet, 250 MG PO BID Prescribed by: JAJA GALEANO on 02/25/17 0927 Cholecalciferol 2,000 Unit Capsule, 2,000 UNIT PO 1200, (Reported) Fentanyl 1 Each Patch.td72, 25 MCG TD EVERY 72 HOURS, (Reported) Folic Acid 0.8 Mg Capsule, 0.8 MG PO HS, (Reported) Furosemide 20 Mg Tablet, 20 MG PO DAILY PRN for WEIGHT GAIN, (Reported) Gabapentin 600 Mg Tablet, 600 MG PO TID, (Reported) Glucosam/Msm/Chond/Adv686/Hyal 1 Each Tablet, 1 TAB PO 1200, (Reported) Hydrocodone/Acetaminophen 1 Each Tablet, 1 TAB PO Q8H PRN for PAIN-MODERATE, ( Reported) Latanoprost 2.5 Ml Drops, 1 DROP OD HS, (Reported) Magnesium Oxide 400 Mg Tablet, 400 MG PO HS, (Reported) Potassium Chloride 20 Meq Tab.er.prt, 20 MEQ PO DAILY PRN for WHEN TAKING FUROSEMIDE, (Reported) Ropinirole HCl 1 Mg Tablet, 1 MG PO HS, (Reported) Patient Home Medication List Home Medication List Reviewed: Yes Review of Systems Constitutional: see HPI; No chills, No fever EENTM: see HPI Respiratory: see HPI, cough; No short of breath Cardiovascular: no symptoms reported Genitourinary: no symptoms reported Musculoskeletal: no symptoms reported Skin: no symptoms reported Psychiatric/Neurological: No Symptoms Reported Hematologic/Lymphatic: No Symptoms Reported Past Bsnonta-Xlzbfo-Esprdd Hx Patient Social History 2nd Hand Smoke Exposure: No Recent Foreign Travel: No Contact w/Someone Who Travel: No Recent Infectious Disease Expo: No Recent Hopitalizations: No Immunizations Up To Date Tetanus Booster (TDap): Unknown Date of Pneumonia Vaccine: Aug 12, 2015 Date of Influenza Vaccine: Oct 01, 2016 Seasonal Allergies Seasonal Allergies: No Past Medical History Surgeries: Yes (left TKR, hernia repair x3, right hip replaced, bunionectomy, ) Appendectomy, Orthopedic Respiratory: Yes (pneumonia in november 2015) Pneumonia Currently Using CPAP: No Currently Using BIPAP: No Cardiac: Yes Hypertension Neurological: No Reproductive Disorders: No Female Reproductive Disorders: Denies Sexually Transmitted Disease: No HIV/AIDS: No Genitourinary: No Benign Prostatic Hyperpl Gastrointestinal: No Musculoskeletal: Yes Arthritis, Scoliosis, Chronic Back Pain Endocrine: No HEENT: Yes Cataract Loss of Vision: Denies Hearing Impairment: Denies Cancer: No Psychosocial: Yes Anxiety Integumentary: No Blood Disorders: No Family Medical History Hypertension Physical Exam Vital Signs Vital Signs - First Documented 01/07/18 17:17 Temp 97.9 Pulse 65 Resp 18 B/P (MAP) 165/67 (99) Pulse Ox 95 O2 Delivery Room Air Capillary Refill : Less Than 3 Seconds General Appearance: WD/WN, no apparent distress Eyes: Bilateral Eye Normal Inspection, Bilateral Eye PERRL, Bilateral Eye EOMI HEENT: PERRL/EOMI, normal ENT inspection Neck: non-tender, full range of motion Respiratory: no respiratory distress, no accessory muscle use, crackles ( Throughout but right greater than left) Cardiovascular: regular rate, rhythm, no murmur Gastrointestinal: normal bowel sounds, non tender, soft Extremities: normal range of motion, non-tender Neurologic/Psychiatric: alert, normal mood/affect, oriented x 3 Skin: normal color, warm/dry Focused Exam Lactate Level 01/07/18 18:20: Lactic Acid Level 0.96 Lactic Acid Level Laboratory Tests Test 01/07/18 18:20 Lactic Acid Level 0.96 MMOL/L (0.50-2.00) Progress/Results/Core Measures Suspected Sepsis Recent Fever Within 48 Hours: No Infection Criteria Present: Suspected New Infection New/Unexplained Altered Menta: No Sepsis Screen: No Definite Risk SIRS Temperature:97.9 Pulse: 65 Respiratory Rate: 18 Laboratory Tests 01/07/18 18:20: White Blood Count 10.6 Blood Pressure 165 /67 Mean: 99 01/07/18 18:20: Lactic Acid Level 0.96 Laboratory Tests 01/07/18 18:20: Creatinine 0.97, Platelet Count 196, Total Bilirubin 1.0 Results/Orders Lab Results Laboratory Tests Test 01/07/18 18:20 Range/Units White Blood Count 10.6 4.3-11.0 10^3/uL Red Blood Count 4.47 4.35-5.85 10^6/uL Hemoglobin 14.0 11.5-16.0 G/DL Hematocrit 42 35-52 % Mean Corpuscular Volume 94 80-99 FL Mean Corpuscular Hemoglobin 31 25-34 PG Mean Corpuscular Hemoglobin Concent 34 32-36 G/DL Red Cell Distribution Width 13.9 10.0-14.5 % Platelet Count 196 130-400 10^3/uL Mean Platelet Volume 9.8 7.4-10.4 FL Neutrophils (%) (Auto) 61 42-75 % Lymphocytes (%) (Auto) 22 12-44 % Monocytes (%) (Auto) 12 0-12 % Eosinophils (%) (Auto) 4 0-10 % Basophils (%) (Auto) 0 0-10 % Neutrophils # (Auto) 6.5 1.8-7.8 X 10^3 Lymphocytes # (Auto) 2.4 1.0-4.0 X 10^3 Monocytes # (Auto) 1.3 H 0.0-1.0 X 10^3 Eosinophils # (Auto) 0.5 H 0.0-0.3 10^3/uL Basophils # (Auto) 0.0 0.0-0.1 10^3/uL Sodium Level 139 135-145 MMOL/L Potassium Level 4.4 3.6-5.0 MMOL/L Chloride Level 103 98-107 MMOL/L Carbon Dioxide Level 24 21-32 MMOL/L Anion Gap 12 5-14 MMOL/L Blood Urea Nitrogen 23 H 7-18 MG/DL Creatinine 0.97 0.60-1.30 MG/DL Estimat Glomerular Filtration Rate 54 BUN/Creatinine Ratio 24 Glucose Level 95 70-105 MG/DL Lactic Acid Level 0.96 0.50-2.00 MMOL/L Calcium Level 10.0 8.5-10.1 MG/DL Total Bilirubin 1.0 0.1-1.0 MG/DL Aspartate Amino Transf (AST/SGOT) 16 5-34 U/L Alanine Aminotransferase (ALT/SGPT) 13 0-55 U/L Alkaline Phosphatase 52 40-136 U/L B-Type Natriuretic Peptide 480.9 H <100.0 PG/ML Total Protein 8.8 H 6.4-8.2 GM/DL Albumin 3.9 3.2-4.5 GM/DL My Orders Orders - MICHEL TAM APRN Cbc With Automated Diff (01/07/18 17:35) Blood Culture (01/07/18 17:35) Lactic Acid Analyzer (01/07/18 17:35) Comprehensive Metabolic Panel (01/07/18 17:35) Chest Pa/Lat (2 View) (01/07/18 17:35) BNP (01/07/18 18:50) Vital Signs/I&O 01/07/18 17:17 Temp 97.9 Pulse 65 Resp 18 B/P (MAP) 165/67 (99) Pulse Ox 95 O2 Delivery Room Air Capillary Refill : Less Than 3 Seconds Blood Pressure Mean: 99 Diagnostic Imaging Diagonstic Imaging: Xray Plain Films/CT/US/NM/MRI: chest Comments NAME: ANIBAL RUSSO [facility] REC#: [id number] PT STATUS: REG ER : 1929 PHYSICIAN: MICHEL TAM APRN ADMIT DATE: 01/07/18/ER Signed Date of Exam:01/07/18 CHEST PA/LAT (2 VIEW) INDICATION: Short of air Two views of chest show cardiomegaly with normal vascularity. There is interstitial lung disease present. No alveolar infiltrate or significant effusion is evident. There is no pneumothorax. IMPRESSION: Interstitial lung disease. There has been improved aeration of the lung bases, otherwise the chest is similar to a prior study from 02/25/2017. Dictated by: Dictated on workstation # [id number] Dict: 01/07/18 1849 Trans: 01/07/18 185 [facility] [id number] Interpreted by: JIGNA PETERS MD Electronically signed by: JIGNA PETERS MD 01/07/18 1853 Departure Impression Primary Impression: Interstitial lung disease Disposition: HOME, SELF-CARE Condition: Stable Departure-Patient Inst. Decision time for Depature: 19:02 Referrals: MEENU PELAEZ DO (PCP/Family) Primary Care Physician Add. Discharge Instructions: 1. Medication as directed 2. Follow-up with Dr. Pelaez later this week 3. Return to ER for any worsening. All discharge instructions reviewed with patient and/or family. Voiced understanding. Scripts Cefuroxime Axetil (Cefuroxime) 500 Mg Tablet 500 MG PO BID, #10 TAB Prov: MICHEL TAM [employer] 01/07/18 Methylprednisolone (Medrol) 4 Mg Tab.ds.pk 4 MG PO UD, #1 PKG Prov: MICHEL TAM [employer] 01/07/18 Copy Copies To 1: MEENU PELAEZ PETER J APRN January 07, 2018 18:49
--- NOTE | 2018-01-07 18:53 | Diagnostic Imaging Report ---
INDICATION: Short of air Two views of chest show cardiomegaly with normal vascularity. There is interstitial lung disease present. No alveolar infiltrate or significant effusion is evident. There is no pneumothorax. IMPRESSION: Interstitial lung disease. There has been improved aeration of the lung bases, otherwise the chest is similar to a prior study from 02/25/2017. Dictated by: Dictated on workstation # [id number]
[2018-01-07] MEDS ORDERED: CEFU500T63 PO (19:29)
[2018-01-07] MEDS ORDERED: METH4TAB PO (19:29)
[2018-01-07] MEDS ORDERED: CEPHALEXIN 250 MG (KEFLEX) CAP PO ONE (19:30)
[2018-01-07] MEDS ORDERED: predniSONE 20 MG TAB PO ONE (19:30)
[2018-01-07 19:38] VITALS: BP 166/72
== END 2018-01-07 19:38 | disposition home or self-care (01) ==
LOC: EDUNIT# 16:43 → ER 16:44
DX: J84.9 Interstitial pulmonary disease, unspecified (principal); F41.9 Anxiety disorder, unspecified; I10 Essential (primary) hypertension; Z87.01 Personal history of pneumonia (recurrent); Z90.49 Acquired absence of other specified parts of digestive tract
CPT/HCPCS: 36415; 71046; 80053; 83605; 83880; 85025; 87040

== ENCOUNTER → 2018-05-08 | Outpatient (CLI) | payer MEDICARE, OTHER ==
[~2018-05-08] MED LIST changes: +AMLO5TAB7 PO; +CEFU500T63 PO; +METH4TAB PO
--- NOTE | 2018-05-08 13:08 | Diagnostic Imaging Report ---
DEXA scan Indication: Screening for osteoporosis, The study was compared to the prior exam of 07/29/2014. The bone mineral density of the radius and ulna and of the left hip was measured. The T score for the radius and ulna is -2.6. This finding indicates osteoporosis. The radius and ulna were not evaluated on the prior exam. The T score for the left hip is -1.9. On the prior study the T score is -1.7. Impression: 1. 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 2. There has been a slight decrease in the bone density of the left hip. The T score values still fall within the range of osteopenia however. Dictated by: Dictated on workstation # [id number]
== END ==
LOC: RAD 11:02
PROVIDERS: ATTEND Internal Medicine
DX: Z13.820 Encounter for screening for osteoporosis (principal); M81.0 Age-related osteoporosis without current pathological fracture
CPT/HCPCS: 77080

== ENCOUNTER → 2018-08-11 | Outpatient (CLI) | payer MEDICARE, OTHER ==
--- NOTE | 2018-08-13 09:44 | Diagnostic Imaging Report ---
Digital mammogram. Bilateral screening with 3-D tomosynthesis with CAD. The study was compared to prior exams of 08/09/2017, 08/08/2016, 08/01/2015 and 07/29/2014. At this time there are no current complaints. The fibroglandular tissue in both breasts is heterogeneously dense. This does limit the sensitivity of this exam. On the craniocaudad view of the left breast in the far lateral aspect of the breast there is a suggestion of a 1 cm nodular density. However there is no corresponding abnormality seen on the MLO views and the tomographic images suggest that this may be secondary to fibroglandular tissue alone. In reviewing the previous exam of 05/14/2012, there also appears to be a similar density in this area. There is no primary or secondary sign of malignancy noted. Impression: There is no evidence for malignancy. ACR BI-RADS Category 1: Negative. Result letter will be mailed to the patient. Note: At least 10% of breast cancer is not imaged by mammography. Dictated by: Dictated on workstation # [id number]
== END ==
LOC: RAD 10:33
PROVIDERS: ATTEND Internal Medicine
DX: Z12.31 Encounter for screening mammogram for malignant neoplasm of breast (principal)
CPT/HCPCS: 77067

== ENCOUNTER → 2018-09-08 | Outpatient (CLI) | payer MEDICARE, OTHER ==
[~2018-09-08] MED LIST changes: +ALEN70TA5 PO; -AMLO5TAB7 PO; +AMLO5TAB9 PO; -GABA600T2 PO; +GBPN600T PO
--- NOTE | 2018-09-08 12:35 | Diagnostic Imaging Report ---
INDICATION: Chronic hip pain. COMPARISON: 02/23/2017. FINDINGS: Frontal and radiographic view of the pelvis and two dedicated radiographic views of each hip were obtained. Postsurgical changes of previous total right hip replacement are identified. Femoral and acetabular components are in appropriate alignment and appear well-seated. There is no evidence of periprosthetic fracture or loosening. Remainder of the bony pelvis is intact. Pubic symphysis is within normal limits. SI joints are symmetric. Left hip joint is intact as well. There is no evidence of acute fracture or dislocation of left hip. Diffuse calcified arteriosclerosis is noted. IMPRESSION: 1. Expected postsurgical changes of previous total right hip replacement. No evidence of hardware fracture or failure. 2. No other acute abnormality of the pelvis or either hip is identified. Dictated by: Dictated on workstation # [id number]
== END ==
LOC: RAD 10:34
PROVIDERS: ATTEND Internal Medicine
DX: M25.552 Pain in left hip (principal); M25.551 Pain in right hip; Z96.641 Presence of right artificial hip joint
CPT/HCPCS: 73523

== ENCOUNTER → 2018-11-01 | Outpatient (CLI) | payer MEDICARE, OTHER ==
--- NOTE | 2018-11-01 14:40 | Diagnostic Imaging Report ---
Indication: Right hip arthroplasty. Comparison: 09/08/2018. Findings: Two views of the right hip demonstrate well-seated arthroplasty without fracture, dislocation or loosening. Atherosclerosis is present. There was no osseous lesion. Impression: Well-seated right hip arthroplasty. Dictated by: Dictated on workstation # [id number]
== END ==
LOC: RAD 12:58
PROVIDERS: ATTEND Internal Medicine
DX: L03.116 Cellulitis of left lower limb (principal); R10.31 Right lower quadrant pain; Z96.641 Presence of right artificial hip joint
CPT/HCPCS: 73502

== ENCOUNTER → 2018-11-11 | Outpatient (CLI) | payer MEDICARE, OTHER ==
--- NOTE | 2018-11-11 17:47 | Diagnostic Imaging Report ---
PROCEDURE: CT lumbar spine without contrast. TECHNIQUE: Multiple contiguous axial images were obtained through the lumbar spine without the use of intravenous contrast. Sagittal and coronal reformations were then performed. Auto Exposure Controls were utilized during the CT exam to meet ALARA standards for radiation dose reduction. INDICATION: Back pain. Lumbar radiculopathy radiating down the left leg. FINDINGS: There is scoliosis. There are changes of laminectomy and fusion with bilateral pedicle screws seen from L2 through L5. This is causing some metallic artifact. No focal disc herniation is seen. There is no central canal stenosis identified. There is a grade 1 spondylolisthesis at L4-L5 with anterior displacement of 7 mm. There is mild foraminal encroachment bilaterally, right greater than left. Spondylosis is also causing some bilateral foraminal narrowing at L5-S1. There is no fracture or other acute abnormality. IMPRESSION: There is scoliosis with diffuse degenerative disc and facet disease as well as changes of prior laminectomy and fusion but no focal disc herniation or significant central canal stenosis is seen at any level. There is foraminal narrowing, most pronounced at L4-L5 and L5-S1. Dictated by: Dictated on workstation # [id number]
== END ==
LOC: RAD 16:38
PROVIDERS: ATTEND Internal Medicine
DX: M41.86 Other forms of scoliosis, lumbar region (principal); M51.16 Intervertebral disc disorders with radiculopathy, lumbar region; M47.26 Other spondylosis with radiculopathy, lumbar region; M48.07 Spinal stenosis, lumbosacral region; Z98.1 Arthrodesis status
CPT/HCPCS: 72131

== ENCOUNTER → 2019-04-16 | Outpatient (CLI) | payer MEDICARE, OTHER ==
--- NOTE | 2019-04-16 16:51 | Diagnostic Imaging Report ---
INDICATION: Groin pain. COMPARISON: None. FINDINGS: Two views of the left hip were obtained and show no fractures, dislocations, or other acute bony abnormalities. Mild osteoarthritic changes are present. Otherwise, joint spaces are maintained. The soft tissues appear unremarkable. No radiopaque foreign bodies are identified. Moderate calcified atherosclerosis is noted. 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 Dictated by: Dictated on workstation # [id number]
== END ==
LOC: RAD 16:00
PROVIDERS: ATTEND Internal Medicine
DX: M16.12 Unilateral primary osteoarthritis, left hip (principal)
CPT/HCPCS: 73502

== ENCOUNTER 2019-05-07 12:23 | Outpatient (RCR) | payer MEDICARE, OTHER | END 2019-08-05 | disposition home or self-care (01) | LOC: ONC 12:23 | PROVIDERS: ATTEND Internal Medicine Hematology & Oncology | DX: D89.0 Polyclonal hypergammaglobulinemia (principal); I10 Essential (primary) hypertension; M19.91 Primary osteoarthritis, unspecified site; Z96.649 Presence of unspecified artificial hip joint; Z88.5 Allergy status to narcotic agent; Z79.899 Other long term (current) drug therapy | CPT/HCPCS: 36415; 83883; 99214 ==